=== PATIENT | male | born 1980 | race Two or more races ===

== ENCOUNTER 2024-08-29 19:50 | Inpatient (IN) | payer MEDICAID, SELFPAY ==
--- NOTE | 2024-08-29 20:07 | XR_ITS ---
Examination: CT abdomen with intravenous contrast CT pelvis with intravenous contrast 2-D coronal reconstructions 2-D sagittal reconstructions Date and time of exam:August 29, 2024 1052 hrs. Comparison August 08, 2024 Indications: Abdominal pain beginning 8 hours ago, history pancreatitis. CTDI: vol (mGy) 6.70 DLP: (mGycm) 363 Technique: Multiple axial sections of the abdomen and pelvis have been obtained. 64 slice high-resolution scanner used. 3 mm axial sections have been obtained, post intravenous injection 60 cc [id number] 2-D sagittal, coronal reconstructions obtained. Low dose protocols were performed. One or more of the following dose reduction techniques were used; automated exposure control, adjustment of the mA and/or KV according to patient size, use of iterative reconstruction technique. Findings: Left pleural fluid with pneumonia left base No focal liver lesion Spleen is not enlarged Prominent edema surrounding the pancreas. There is probable embolization material in the left abdomen medial to the spleen There remains splenic laceration with subcapsular hematoma adjacent to the spleen, fragmentation of the spleen noted on studies dating to June 27, 2024 No hydronephrosis Aorta normal size No bowel obstruction No pericecal inflammatory change or diverticulitis Cystitis pattern Impression: Mild to moderate left pleural fluid with pneumonia left base Acute pancreatitis Lacerated fragmented spleen is again noted with subcapsular hematoma, noted on abdomen films dating to June 27, 2024
--- NOTE | 2024-08-29 20:14 | PD.EDABDPN ---
ED Abdominal Pain RME/HPI General Chief Complaint: Abdominal Pain Stated complaint: ABDOMINAL PAIN Time seen by provider: 08/29/24 20:02 Arrival date/time: 08/29/24 19:50 RME / HPI RME / HPI narrative: 44-year-old male patient with significant history of pancreatitis, gastritis, was brought in by EMS for evaluation regarding worsening abdominal pain. Patient told me that since yesterday she been having epigastric pain, getting worse today, currently moaning and crying severity 10 out of 10 described as sharp pain. Patient told me that his pancreatitis is acting up again. Also complained of vomiting and nausea. No fever no other complaints noted. Patient told me that started yesterday after drinking lemon juice. Patient took Antler 3 hours prior to ER visit with no relief. Related Data Home Medications ?Medication ?Instructions ?Recorded ?Confirmed carvedilol 12.5 mg tablet 12.5 mg PO DAILY 08/10/23 08/08/24 lisinopril 20 mg tablet 10 mg PO BID 08/10/23 08/08/24 quetiapine 25 mg tablet 25 mg PO PRN PRN Sleep 04/14/24 08/08/24 allopurinol 100 mg tablet 100 mg PO QDAY 06/27/24 08/08/24 colchicine 0.6 mg tablet 0.6 mg PO QDAY 06/27/24 08/08/24 corticotropin 80 unit/mL injection 80 unit subcut DAILY PRN Pain 06/27/24 08/08/24 gel (Cortrophin Gel) ergocalciferol (vitamin D2) 1,250 1,250 mcg PO QWEEK 06/27/24 08/08/24 mcg (50,000 unit) capsule fluconazole 150 mg tablet 150 mg PO QDAY 06/27/24 08/08/24 hydrocodone 10 mg-acetaminophen 1 tab PO BID PRN Pain 06/27/24 08/08/24 325 mg tablet prednisone 20 mg tablet 20 mg PO QDAY 06/27/24 08/08/24 omeprazole 20 mg capsule,delayed 20 mg PO QDAY 08/08/24 08/08/24 release Previous Rx's ?Medication ?Instructions ?Recorded acetaminophen 325 mg tablet 650 mg (2 x 325 mg) PO Q6H PRN 08/11/24 Pain Scale 1-3 (Mild #15 tabs Allergies Allergy/AdvReac Type Severity Reaction Status Date / Time No Known Allergies Allergy Verified 08/29/24 20:32 Review of Systems Review of Systems Narrative Review of Systems: Review of system reviewed and within normal limits except mentioned in HPI ED Exam Narrative Physical exam: VITAL SIGNS: Reviewed. GENERAL APPEARANCE: Alert and interactive, follows commands, no acute distress, HEAD AND FACE: Non-traumatic. ENT: PERRL, pink conjunctivitis, eyelid no trauma, Mucous membrane moist. NECK: Supple, nontender, no nuchal rigidity. CHEST: No tenderness, no crepitus, no paradoxical movement, no retractions. LUNGS: Clear, well ventilated, symmetric, no rales, no wheezing, no ronchi, no stridor, good breath sounds bilaterally. HEART: Regular rate, regular rhythm, no murmur, no gallops. ABDOMEN: Soft, positive bowel sounds, nondistended, no guarding, epigastric tenderness, no rebound, no masses, RECTAL: Deferred. GENITAL: Deferred. NEUROLOGICAL: Gross motor function intact sensory function intact, Appropriate for age. MUSCULOSKELETAL: low back nontender, full range of motion. EXTREMITIES: Nontender, full range of motion. SKIN: Color pink, dry, no rash, no lacerations, no abrasions, no contusions. LYMPHATICS: Deferred. Course Quality Measures none Orders Category Date Time Status Bedside COVID-19 Antigen Test NOW Care 08/30/24 02:[address] Screening NOW Care 08/29/24 20:12 Completed EKG (ED ONLY) *Do not use* NOW Care 08/29/24 20:07 Completed EKG (ED ONLY) *Do not use* NOW Care 08/29/24 20:[address] abdomen pelvis w con Stat Exams 08/29/24 20:07 Completed EKG (ED Only) Stat Exams 08/29/24 20:07 Ordered EKG (ED Only) Stat Exams 08/29/24 20:13 Ordered CBC Stat Lab 08/29/24 20:54 Completed Comprehensive Metabolic Panel Stat Lab 08/29/24 20:54 Completed Lipase Stat Lab 08/29/24 20:54 Completed Partial Thromboplastin Time Stat Lab 08/29/24 20:54 [address] Review Blood Smear Stat Lab 08/29/24 20:54 Completed Prothrombin Time with INR Stat Lab 08/29/24 20:54 Completed Famotidine Inj [Pepcid Inj] Med 08/29/24 20:12 Discontinued 20 mg IVP X1 ONE HYDROmorphone INJ [Dilaudid Inj] Med 08/30/24 02:24 Discontinued 1 mg IVP X1 ONE Morphine Inj Med 08/29/24 21:26 Discontinued 5 mg IVP X1 ONE Morphine Inj Med 08/29/24 23:59 Discontinued 5 mg IVP X1 ONE Morphine Inj (ASD use only) Med 08/29/24 23:36 Discontinued 10 mg IVP X1 ONE Morphine Inj (ASD use only) Med 08/29/24 23:39 Discontinued 5 mg IVP X1 ONE Morphine Inj [Morphine Sulf Inj] Med 08/29/24 23:17 Discontinued 5 mg IV X1 ONE Morphine Inj [Morphine Sulf Inj] Med 08/29/24 20:13 Discontinued 5 mg IVP X1 ONE Morphine Inj [Morphine Sulf Inj] Med 08/29/24 23:16 Discontinued 5 mg IVP X1 ONE Morphine Inj [Morphine Sulf Inj] Med 08/29/24 23:52 Discontinued 5 mg IVP X1 ONE Ondansetron Inj [Zofran Inj] Med 08/29/24 20:12 Discontinued 4 mg IV X1 ONE Sodium Chloride 0.9% 1000 ml [Ns] 1,000 ml Med 08/29/24 20:12 Discontinued IV 999 mls/hr Vital Signs Vital signs: Vital Signs Temperature 98.1 F 08/29/24 20:21 Respiratory Rate 65 H 08/29/24 20:21 Blood Pressure 233/127 H 08/29/24 20:21 Pulse Oximetry (%) 99 08/29/24 20:21 Oxygen Delivery Method Room Air 08/29/24 20:21 Abdominal Pain MDM MDM Narrative MDM Narrative:: Care transferred to Dr. Hirsch at 11:30 PM for final disposition. Patient data External records reviewed:: None Clinical information provided by:: patient Social determinants that could affect healthcare access:: none Patient has the following chronic illnesses:: Hypertension How is presenting disease/condition affected by chronic disease/condition?: uneffected by Evaluation data The following diagnostics were reviewed and interpreted by me:: lab results Lab and/or radiology exams considered but not ordered:: None Interpretation Summary: Pending results Medications / Prescriptions Medications or Prescriptions considered but not ordered:: None Medication administrations:: Medication Administration History Acetaminophen (Acetaminophen 325 Mg Tablet) 650 mg PO Q6H PRN PRN Reason: Pain or Fever >100.3 Stop: 09/29/24 03:50 Hydrocodone Bitart/Acetaminophen (Hydrocodone/Apap 10/325 Tab) 2 tab PO Q4H PRN PRN Reason: PAIN SCALE 4-6 (Moderate Stop: 09/04/24 03:50 Folic Acid (Folic Acid 1 Mg Tablet) 1 mg PO BID [facility] Stop: 09/04/24 20:59 Last Admin: 08/30/24 20:56 Dose: 1 mg Documented By: Hydralazine HCl (Hydralazine Inj 20 Mg/Ml Vial) 10 mg IV Q6H PRN PRN Reason: High blood pressure Stop: 09/29/24 05:18 Hydromorphone HCl (Hydromorphone Inj 2 Mg/Ml Vial) 1 mg IVP Q2H PRN PRN Reason: PAIN SCALE 7-10 (Severe Stop: 09/04/24 03:50 Last Admin: 08/30/24 20:58 Dose: 1 mg Documented By: Admin: 08/30/24 18:45 Dose: 1 mg Documented By: Admin: 08/30/24 12:28 Dose: 1 mg Documented By: JUSTICE Sodium Chloride (Ns) 1,000 mls @ 150 mls/hr IV .Q6H40M [facility] Stop: 08/31/24 11:18 Last Admin: 08/30/24 18:45 Dose: 150 mls/hr Documented By: Infusion: 08/30/24 18:45 Dose: Infused Documented By: Admin: 08/30/24 12:18 Dose: 150 mls/hr Documented By: JUSTICE Lorazepam (Lorazepam 2 Mg/Ml Vial) 0.5 mg IVP Q4H PRN PRN Reason: CIWA SCORE(2-6) Stop: 09/04/24 14:46 Lorazepam (Lorazepam 2 Mg/Ml Vial) 1 mg IVP Q4H PRN PRN Reason: CIWA SCORE (7-11) Stop: 09/04/24 14:46 Lorazepam (Lorazepam 2 Mg/Ml Vial) 2 mg IVP Q4H PRN PRN Reason: CIWA SCORE (12-16) Stop: 09/04/24 14:46 Melatonin (Melatonin 3 Mg Tablet) 3 mg PO HS [facility] Stop: 09/29/24 20:59 Last Admin: 08/30/24 20:56 Dose: 3 mg Documented By: Ondansetron HCl (Ondansetron Inj 2 Mg/Ml Inj 2 Ml) 4 mg IV Q6HR PRN; Protocol PRN Reason: NAUSEA OR VOMITING Stop: 09/29/24 05:04 Last Admin: 08/30/24 13:18 Dose: 4 mg Documented By: JSUTICE Comments: [email or web address] to give early, pt vomiting Admin: 08/30/24 08:52 Dose: 4 mg Documented By: JUSTICE Pantoprazole Sodium (Pantoprazole Inj 40 Mg Vial) 40 mg IVP QDAY [facility] Stop: 09/29/24 08:59 Last Admin: 08/30/24 08:52 Dose: 40 mg Documented By: JUSTICE Thiamine HCl (Thiamine 100 Mg Tablet) 100 mg PO BID [facility] Stop: 09/04/24 20:59 Last Admin: 08/30/24 20:56 Dose: 100 mg Documented By: Discontinued Medications Acetaminophen (Acetaminophen 325 Mg Tablet) 650 mg PO Q6H PRN PRN Reason: Pain or Fever >100.3 Stop: 09/29/24 03:50 Famotidine (Famotidine Inj 10 Mg/Ml Vial 2 Ml) 20 mg IVP X1 ONE Stop: 08/29/24 20:13 Last Admin: 08/29/24 21:36 Dose: 20 mg Documented By: EVAN Hydromorphone HCl (Hydromorphone Inj 2 Mg/Ml Vial) 1 mg IVP X1 ONE Stop: 08/30/24 02:25 Last Admin: 08/30/24 03:12 Dose: 1 mg Documented By: EVAN Hydromorphone HCl (Hydromorphone Inj 2 Mg/Ml Vial) 1 mg IVP Q2H PRN PRN Reason: PAIN Stop: 09/04/24 03:50 Last Admin: 08/30/24 08:53 Dose: 1 mg Documented By: Admin: 08/30/24 05:52 Dose: 1 mg Documented By: EVAN Sodium Chloride (Ns) 1,000 mls @ 999 mls/hr IV .Q1H1M ONE Stop: 08/29/24 21:12 Last Infusion: 08/29/24 23:45 Dose: Infused Documented By: Admin: 08/29/24 22:00 Dose: 999 mls/hr Documented By: EVAN Sodium Chloride (Ns) 500 mls @ 999 mls/hr IV .Q31M ONE Stop: 08/30/24 04:21 Last Infusion: 08/30/24 04:59 Dose: Infused Documented By: Admin: 08/30/24 04:00 Dose: 999 mls/hr Documented By: EVAN Lactated Ringer's (Lactated Ringers) 1,000 mls @ 200 mls/hr IV .Q5H [facility] Stop: 08/30/24 08:59 Last Admin: 08/30/24 05:54 Dose: 200 mls/hr Documented By: EVAN Magnesium Sulfate (Magnesium Sulfate Ivpb) 4 gm in 50 mls @ 12.5 mls/hr IV X1 ONE Stop: 08/30/24 15:24 Last Admin: 08/30/24 12:18 Dose: 12.5 mls/hr Documented By: JUSTICE Ketorolac Tromethamine (Ketorolac Inj 30 Mg/Ml Vial) 15 mg IVP X1 ONE Stop: 08/30/24 17:26 Last Admin: 08/30/24 17:44 Dose: 15 mg Documented By: JUSTICE Lorazepam (Lorazepam 2 Mg/Ml Vial) 1 mg IVP X1 ONE Stop: 08/30/24 13:24 Last Admin: 08/30/24 13:30 Dose: 1 mg Documented By: JUSTICE Morphine Sulfate (Morphine Sulf Inj 4 Mg/Ml Vial) 5 mg IVP X1 ONE Stop: 08/29/24 20:14 Last Admin: 08/29/24 22:21 Dose: Not Given Documented By: ROLF Non-Admin Reason: Cancelled by Provider Morphine Sulfate (Morphine Sulf Inj 10 Mg/Ml Vial) 5 mg IVP X1 ONE Stop: 08/29/24 21:27 Last Admin: 08/29/24 21:36 Dose: 5 mg Documented By: EVAN Morphine Sulfate (Morphine Sulf Inj 4 Mg/Ml Vial) 5 mg IVP X1 ONE Stop: 08/29/24 23:17 Last Admin: 08/29/24 23:39 Dose: Not Given Documented By: ROLF Non-Admin Reason: Discontinued Morphine Sulfate (Morphine Sulf Inj 4 Mg/Ml Vial) 5 mg IV X1 ONE Stop: 08/29/24 23:18 Last Admin: 08/29/24 23:21 Dose: Not Given Documented By: ROLF Non-Admin Reason: Discontinued Morphine Sulfate (Morphine Sulf Inj 10 Mg/Ml Vial (Asd Use Only)) 10 mg IVP X1 ONE Stop: 08/29/24 23:37 Last Admin: 08/29/24 23:39 Dose: Not Given Documented By: ROLF Non-Admin Reason: Discontinued Morphine Sulfate (Morphine Sulf Inj 10 Mg/Ml Vial (Asd Use Only)) 5 mg IVP X1 ONE Stop: 08/29/24 23:40 Last Admin: 08/30/24 00:29 Dose: Not Given Documented By: ROLF Non-Admin Reason: Discontinued Morphine Sulfate (Morphine Sulf Inj 4 Mg/Ml Vial) 5 mg IVP X1 ONE Stop: 08/29/24 23:53 Last Admin: 08/30/24 00:29 Dose: Not Given Documented By: ROLF Non-Admin Reason: Discontinued Morphine Sulfate (Morphine Sulf Inj 10 Mg/Ml Vial) 5 mg IVP X1 ONE Stop: 08/30/24 00:00 Last Admin: 08/30/24 00:08 Dose: 5 mg Documented By: EVAN Ondansetron HCl (Ondansetron Inj 2 Mg/Ml Inj 2 Ml) 4 mg IV X1 ONE; Protocol Stop: 08/29/24 20:13 Last Admin: 08/29/24 21:36 Dose: 4 mg Documented By: EVAN Mcpherson Zofran Consultations Consultation(s) initiated? (list below): No Diagnosis Differential diagnosis abdominal pain: abdominal pain, gastroenteritis and pancreatitis Most likely diagnosis given after review of the tests above:: Acute pancreatitis Admission Indicated Admission indicated?: indicated Admission Request Was there a request for admission?: Yes Admission Attestation Admission request attestation: Discussed case with [ ] from Hospitalist service regarding admission. Discussed patients ED course, exam findings, labs, and radiology results. The Hospitalist [agrees,] to accept the patient for admission. Disposition Plan Disposition Plan: Admit Discharge Plan Plan Patient Disposition: Admit Acute Care w/in Hospital Patient condition on transfer: Stable Problem List Clinical Impression: Acute pancreatitis, Intractable nausea
[2024-08-29 20:21] VITALS: BP 200/140; BP 233/127; RESP 65; TEMP 36.7; O2SAT 99; BMI 24.3
[2024-08-29 20:29] VITALS: PULSE 85; RESP 20; O2SAT 98; BMI 24.3
[2024-08-29 21:27] LABS: Basophils % (Auto) 0 % (0-2.5); Eosinophils % (Auto) 0 % (0-10); Hematocrit 28.6 % (41.0-53.0); Immature Granulocytes % (Auto) 1 % (0-0); Immature Granulocytes Auto 0.08 Thou/mm3 (0.00-0.00); Lymphocytes # (Auto) 1.4 Thou/mm3 (1.0-4.8); Lymphocytes % (Auto) 8 % (10-50); Mean Corpuscular HGB Conc 30.8 g/dl (31.0-37.0); Mean Corpuscular Hemoglobin 23.7 pg (25.0-35.0); Mean Corpuscular Volume 77 fL (80-100); Monocytes # (Auto) 0.7 Thou/mm3 (0.0-0.8); Monocytes % (Auto) 4 % (0-12); Neutrophils # (Auto) 14.8 Thou/mm3 (1.8-7.7); Neutrophils % (Auto) 87 % (37-80); Nucleated Red Blood Cell % 0 /100 WBC (0); Platelet Count 873 Thou/mm3 (140-440); RDW Standard Deviation 52.5 fL (35.1-43.9); Red Blood Count 3.72 Miln/mm3 (4.50-5.90); White Blood Count 17.1 Thou/mm3 (3.8-10.6)
[2024-08-29 21:29] LABS: Hemoglobin 8.8 g/dL (13.5-16.0)
[2024-08-29] MEDS: FAMOTIDINE INJ 10 MG/ML VIAL 2 ML 20 MG IVP (21:36)
[2024-08-29] MEDS: MORPHINE SULF INJ 10 MG/ML VIAL 5 MG IVP (21:36)
[2024-08-29] MEDS: ONDANSETRON INJ 2 MG/ML INJ 2 ML 4 MG IV (21:36)
[2024-08-29 21:37] LABS: INR 1.1 (0.9-1.3); Partial Thromboplastin Time 30.2 Seconds (22.0-36.0); Prothrombin Time 11.9 Seconds (9.0-12.2)
[2024-08-29 21:38] VITALS: BP 214/135; PULSE 67; RESP 20; O2SAT 100
[2024-08-29 21:44] LABS: Alanine Aminotransferase 16 U/L (10-49); Albumin, Serum 4.1 gm/dL (3.5-5.0); Albumin/Globulin Ratio 1.2 (1.2-2.2); Alkaline Phosphatase 187 U/L (46-116); Anion Gap 9 (7-16); Aspartate Amino Transferase 16 U/L (0-34); BUN/Creatinine Ratio 11 Ratio (12-20); Bilirubin,Total 0.8 mg/dL (0.3-1.2); Blood Urea Nitrogen 13 mg/dL (9-23); Calcium 9.5 mg/dL (8.3-10.6); Calcium (Corrected) 9.5 mg/dL (8.5-10.1); Carbon Dioxide 21.5 mMol/L (20.0-31.0); Chloride 99 mMol/L (98-107); Creatinine (Component) 1.2 mg/dL (0.6-1.3); Estimated Creatinine Clearance 73.4 mL/min (>60); Globulin 3.4 gm/dL (2.3-3.5); Glucose 172 mg/dL (74-106); Lipase 78 U/L (12-53); Osmolality,Calculated 263 (275-295); Sodium 129 mMol/L (136-145); Total Protein 7.5 gm/dL (5.7-8.2); eGFR > 60 See Note
[2024-08-29] MEDS: SODIUM CHLORIDE 0.9% 1000 ML 1,000 ML 999 ML IV (22:00)
--- NOTE | 2024-08-29 22:45 | PC.NURSE ---
Pt states pain is returning. Pt taken to CT.
[2024-08-30] VITALS (9 sets, daily range): BP systolic 130–209; BP diastolic 88–120; PULSE 62–102; RESP 16–20; TEMP 36.1–36.7; O2SAT 93–100; BMI 21.7
[2024-08-30] MEDS: MORPHINE SULF INJ 10 MG/ML VIAL 5 MG IVP (00:08)
--- NOTE | 2024-08-30 02:14 | EDNOTE_ITS ---
Emergency Room Addendum Addendum Narrative: 2300: Care assumed from Chela Lewis. Past medical, surgical, social and family history reviewed. Vitals and home medications reviewed. Results and treatment plan discussed. I will assume the care of the patient at this time and will follow the patient. Please refer to the emergency department record for history and examination from initial visit. PCP is located at [facility]. 0221: Patient states his pain was initially 9 out of 10, and currently rates it a 7 out of 10. Patient has already received 2 doses of Morphine, 1 dose of Pepcid, and 1 dose of Zofran. Will consult an admission to the hospitalist for pain control. 0225: Discussed case with [the resident physician, attending Dr. Ward] from Hospitalist service regarding admission. Discussed patients ED course, exam findings, labs, and radiology results. The Hospitalist [agrees] to accept the patient for admission. RADIOLOGY RESULTS: [facility] Report Signed Patient: BRAYAN NANCE. Record#: [id number] Birthdate: 1980 Age/Sex: 44 / M Location: [facility] Attending Dr: Ordering Physician: Chela Lewis Date of Service: 08/29/24 Procedure(s): CT abdomen pelvis w con Accession Number(s): [id number] cc: Chela Lewis; Ramon Mendez; Lacho Garcia MD~ Examination: CT abdomen with intravenous contrast CT pelvis with intravenous contrast 2-D coronal reconstructions 2-D sagittal reconstructions Date and time of exam:August 29, 2024 1052 hrs. Comparison August 08, 2024 Indications: Abdominal pain beginning 8 hours ago, history pancreatitis. CTDI: vol (mGy) 6.70 DLP: (mGycm) 363 Technique: Multiple axial sections of the abdomen and pelvis have been obtained. 64 slice high-resolution scanner used. 3 mm axial sections have been obtained, post intravenous injection 60 cc [id number] 2-D sagittal, coronal reconstructions obtained. Low dose protocols were performed. One or more of the following dose reduction techniques were used; automated exposure control, adjustment of the mA and/or KV according to patient size, use of iterative reconstruction technique. Findings: Left pleural fluid with pneumonia left base No focal liver lesion Spleen is not enlarged Prominent edema surrounding the pancreas. There is probable embolization material in the left abdomen medial to the spleen There remains splenic laceration with subcapsular hematoma adjacent to the spleen, fragmentation of the spleen noted on studies dating to June 27, 2024 No hydronephrosis Aorta normal size No bowel obstruction No pericecal inflammatory change or diverticulitis Cystitis pattern Impression: Mild to moderate left pleural fluid with pneumonia left base Acute pancreatitis Lacerated fragmented spleen is again noted with subcapsular hematoma, noted on abdomen films dating to June 27, 2024 Dictated By: Lacho Garcia MD Signed By: <Electronically signed by Lacho Garcia MD in [place]> 08/29/24 1258
[2024-08-30] MEDS: HYDROmorphone INJ 2 MG/ML VIAL 1 MG IVP ×7 (03:12→23:44)
[2024-08-30] MEDS: SODIUM CHLORIDE 0.9% 500 ML 500 ML 999 ML IV (04:00)
--- NOTE | 2024-08-30 04:50 | PD.RESHP ---
Documentation for date of: 08/30/24 [facility] History of Present Illness Chief complaint: severe abdominal pain History of present illness: Patient is a 44-year-old male with past medical history significant for hypertension, gout, chronic pancreatitis with pseudocyst, history of splenic laceration presented to the ED today with abdominal pain around 430 in afternoon. Patient states that he was eating salmon with lemon juice prior to when the pain started suddenly. Patient states the pain started in his umbilical region and then radiated toward the epigastric area. Patient states the pain worsened while arriving in the ED, radiating to the back. Patient denies any nausea or vomiting, diarrhea, constipation, . Patient states pain was initially 10 out of 10, currently 5 out of 10. Patient denies drinking alcohol, smoking tobacco or using any illicit drug use. Of note, patient states that he normally takes indomethacin, prednisone, allopurinol for his gout flares, and did state that he had a mild gout flare in his left shoulder blade, and took indomethacin and prednisone today. Patient also was recently discharged on 08/11/2024 for acute anemia from blood loss, gastritis, acute on chronic peritonitis, and splenic subscapular bleed. Patient states his abdominal pain didn't fully resolved, but manageable. ED course: Patient presented with blood pressure of 233/127, respiration rate of 65, otherwise afebrile on room air. Patient's labs significant for leukocytosis with left shift, microcytic anemia, hyponatremia, elevated alk phos and slightly elevated lipase. UA analysis, U tox pending. Patient received 1 L bolus, 30 mg of morphine [address] abdomen pelvis showed mild to moderate left pleural fluid pneumonia left base, acute pancreatitis, lacerated fragmented spleen with subscapular hematoma. ROS: Negative except as mentioned above PMH: Hypertension, gout, gastritis, splenic laceration, chronic pancreatitis PSH: Splenic laceration surgery SH: Patient denies using any recent illicit drug use or drinking alcohol. Last alcoholic drink was a beer prior to last admission. Home Meds: Lisinopril, omeprazole, patient states he has prednisone, allopurinol, and colchicine for gout as needed Patient was admitted to [facility] [place] for further management of acute on chronic pancreatitis. Review of Systems Review of Systems Systems Reviewed: All systems reviewed, normal except as documented Exam Vital Signs Temp Pulse Resp BP Pulse Ox O2 Del Method 98.1 F 82 18 157/110 H 98 Room Air 08/30/24 04:00 08/30/24 04:00 08/30/24 04:00 08/30/24 04:00 08/30/24 04:00 08/30/24 04:00 Narrative Exam General Appearance: Pt in moderate acute distress laying in bed. HEENT: NC/AT, no scleral icterus, no conjunctival pallor, MMM Lungs: CTAB, no wheezes or crackles appreciated CVS: RRR, S1/S2 heard, no murmurs or rubs appreciated ABD: Soft, diffusely tender with guarding, non-distended, BS + in all 4 quadrants EXT: no deformity/edema/lesions/cyanosis/clubbing, radial pulses 2+ BL, DP pulses 2 + BL SKIN: Skin exam normal without any rashes. Neuro: A&O x 3. No gross neurological deficits. Motor and sensory grossly intact in B/L UL and LL. Psych: Appropriate mood and affect Results: Labs 08/30/24 04:44 08/30/24 04:44 Labs: Short CBC 08/29/24 Range/Units 20:54 WBC 17.1 H (3.8-10.6) Thou/mm3 Hgb 8.8 L (13.5-16.0) g/dL Hct 28.6 L (41.0-53.0) % Plt Count 873 H D (140-440) Thou/mm3 BMP 08/29/24 20:54 Sodium 129 L Potassium 4.0 Chloride 99 Carbon Dioxide 21.5 BUN 13 Creatinine 1.2 Glucose 172 H Calcium 9.5 Liver Function 08/29/24 Range/Units 20:54 Total Bilirubin 0.8 (0.3-1.2) mg/dL AST 16 (0-34) U/L ALT 16 (10-49) U/L Alkaline Phosphatase 187 H (46-116) U/L Albumin 4.1 (3.5-5.0) gm/dL Quality Measures Quality Measures VTE prophylaxis Medications Home Medications and Allergies Home Medications ?Medication ?Instructions ?Recorded ?Confirmed ?Type carvedilol 12.5 mg tablet 12.5 mg PO DAILY 08/10/23 08/08/24 History lisinopril 20 mg tablet 10 mg PO BID 08/10/23 08/08/24 History quetiapine 25 mg tablet 25 mg PO PRN PRN Sleep 04/14/24 08/08/24 History allopurinol 100 mg tablet 100 mg PO QDAY 06/27/24 08/08/24 History colchicine 0.6 mg tablet 0.6 mg PO QDAY 06/27/24 08/08/24 History corticotropin 80 unit/mL injection 80 unit subcut DAILY PRN Pain 06/27/24 08/08/24 History gel (Cortrophin Gel) ergocalciferol (vitamin D2) 1,250 1,250 mcg PO QWEEK 06/27/24 08/08/24 History mcg (50,000 unit) capsule fluconazole 150 mg tablet 150 mg PO QDAY 06/27/24 08/08/24 History hydrocodone 10 mg-acetaminophen 1 tab PO BID PRN Pain 06/27/24 08/08/24 History 325 mg tablet prednisone 20 mg tablet 20 mg PO QDAY 06/27/24 08/08/24 History omeprazole 20 mg capsule,delayed 20 mg PO QDAY 08/08/24 08/08/24 History release Allergies Allergy/AdvReac Type Severity Reaction Status Date / Time No Known Allergies Allergy Verified 08/29/24 20:32 Visit Medications Acetaminophen (Acetaminophen 325 Mg Tablet) 650 mg PO Q6H PRN PRN Reason: Pain or Fever >100.3 Stop: 09/29/24 03:50 Hydrocodone Bitart/Acetaminophen (Hydrocodone/Apap 10/325 Tab) 2 tab PO Q4H PRN PRN Reason: PAIN SCALE 4-6 (Moderate Stop: 09/04/24 03:50 Hydromorphone HCl (Hydromorphone Inj 2 Mg/Ml Vial) 1 mg IVP Q2H PRN PRN Reason: PAIN Stop: 09/04/24 03:50 Lactated Ringer's (Lactated Ringers) 1,000 mls @ 200 mls/hr IV .Q5H SEVEN Stop: 08/30/24 08:59 Discontinued Medications Famotidine (Famotidine Inj 10 Mg/Ml Vial 2 Ml) 20 mg IVP X1 ONE Stop: 08/29/24 20:13 Last Admin: 08/29/24 21:36 Dose: 20 mg Hydromorphone HCl (Hydromorphone Inj 2 Mg/Ml Vial) 1 mg IVP X1 ONE Stop: 08/30/24 02:25 Last Admin: 08/30/24 03:12 Dose: 1 mg Sodium Chloride (Ns) 1,000 mls @ 999 mls/hr IV .Q1H1M ONE Stop: 08/29/24 21:12 Last Infusion: 08/29/24 23:45 Dose: Infused Sodium Chloride (Ns) 500 mls @ 999 mls/hr IV .Q31M ONE Stop: 08/30/24 04:21 Morphine Sulfate (Morphine Sulf Inj 4 Mg/Ml Vial) 5 mg IVP X1 ONE Stop: 08/29/24 20:14 Last Admin: 08/29/24 22:21 Dose: Not Given Morphine Sulfate (Morphine Sulf Inj 10 Mg/Ml Vial) 5 mg IVP X1 ONE Stop: 08/29/24 21:27 Last Admin: 08/29/24 21:36 Dose: 5 mg Morphine Sulfate (Morphine Sulf Inj 4 Mg/Ml Vial) 5 mg IVP X1 ONE Stop: 08/29/24 23:17 Last Admin: 08/29/24 23:39 Dose: Not Given Morphine Sulfate (Morphine Sulf Inj 4 Mg/Ml Vial) 5 mg IV X1 ONE Stop: 08/29/24 23:18 Last Admin: 08/29/24 23:21 Dose: Not Given Morphine Sulfate (Morphine Sulf Inj 10 Mg/Ml Vial (Asd Use Only)) 10 mg IVP X1 ONE Stop: 08/29/24 23:37 Last Admin: 08/29/24 23:39 Dose: Not Given Morphine Sulfate (Morphine Sulf Inj 10 Mg/Ml Vial (Asd Use Only)) 5 mg IVP X1 ONE Stop: 08/29/24 23:40 Last Admin: 08/30/24 00:29 Dose: Not Given Morphine Sulfate (Morphine Sulf Inj 4 Mg/Ml Vial) 5 mg IVP X1 ONE Stop: 08/29/24 23:53 Last Admin: 08/30/24 00:29 Dose: Not Given Morphine Sulfate (Morphine Sulf Inj 10 Mg/Ml Vial) 5 mg IVP X1 ONE Stop: 08/30/24 00:00 Last Admin: 08/30/24 00:08 Dose: 5 mg Ondansetron HCl (Ondansetron Inj 2 Mg/Ml Inj 2 Ml) 4 mg IV X1 ONE; Protocol Stop: 08/29/24 20:13 Last Admin: 08/29/24 21:36 Dose: 4 mg Assessment & Plan Plan Patient is a 44-year-old male with past medical history significant for hypertension, gout, chronic pancreatitis with pseudocyst, history of splenic laceration presented to the ED today with sudden onset of severe abdominal pain admitted for further management of acute on chronic pancreatitis. #Acute on Chronic Pancreatitis Patient presented with sudden onset of severe abdominal pain. Patient states he has had pancreatitis with acute flares for about 3 years, with last flare 2 weeks ago. Presented with normal LFTs, elevated alk phos, and lipase of 78. Patient had a sudden onset of epigastric pain that initially radiated from the back. Anabell's criteria for pancreatitis prognosis is 2. CT abdomen pelvis showed acute pancreatitis, mild to moderate left pleural fluid with pneumonia left base, and lacerated fragmented spleen is again noted with subcapsular hematoma stable since 06/27/24. Last EtOH drink was 3 weeks ago. -Admit to med/surg -IV LR fluids at 200cc/h after additional LR 500ml bolus -Monitor Strict I's/O's -Pain regimen: Mild to Moderate (1-12/01) Acetaminophen 650mg Q6H PO PRN, Mod to Severe (4-610) Hydrocodone/APAP 10mg Q4H PO PRN , Severe (-07/03) Dilaudid 1 mg Q2H IV PRN -Initially NPO, however patient able to tolerate ice chips, and will start clear liquid diet ordered and can advance as tolerated -Ondansetron IV 4 mg every 6 as needed -Monitor CBC and CMP, Lipid panel -Utox, UA, and EtoH level pending #Microcytic Anemia #Subscapular bleed-Stable #History of splenic laceration #Gastritis Labs today show Hemoglobin 8.8, hematocrit 28.6, MCV 77. Prior EGD findings three weeks ago show esophagitis and diffuse moderate gastritis. Patient takes home Omeprazole. CT abdomen pelvis showed lacerated fragmented spleen is again noted with subcapsular hematoma stable since 06/27/24. -IVF Maintenance -Pain management as needed ordered -Will transfuse if Hgb below 7 -Pending Iron panel and Ferritin -F/u outpt for colonscopy -IV PPI #Hypertensive Urgency-improved #Primary hypertension Resume home Lisinopril 20mg QD #Gout Patient does not regularly take medication, he states he has approximately 3 flares a year Patient states he had a flare today and took Indomethacin and Prednisone #Hx of Substance abuse -Patient denies any recent use of EtoH or ilicit drug use -Pending Utox, UA, and EtOH level Health Maintenance: Disposition: Patient admitted for acute on chronic pancreatitis. Currently on IVF and pain control, and plan to advance as tolerated. DVT Prophylaxis: SCDs GI Prophylaxis: Pantoprozol-40 IV Qday Diet: CLD Code status: Full Patient's care and plan discussed with my attending, Dr. Ward. Althea Petit, PGY-2 Attending Provider Attestation/Addendum Face to face evaluation was performed by me. I have personally seen and examined the patient. I discussed the assessment and plan with the entire medicine team. I reviewed available medical records, imaging studies, laboratory results. I agree with the above subjective data, objective findings, assessment and plan except as corrected by me or noted below Epigaatric pain Acuteon chronci pancreatitis Splenic rupture subcapsular hematoma, stable Hx of polysubstance abuse Leukocytosis, likely reactive Anemia - Aggressive iv hydration, give 1 time and consider repeating small boluses 500 cc q1h prn as well. -Pain control -PRN antiemetics -NPO for now -Radiologist commended left base infiltrate, but could not visualize it well on CT imaging, absence of fever and cough- will hold off on Abxs, likely wbc elevation is reactive. -Hb at least stable if not higher than before, continue to monitor closely, avoid heparin products if possible DV ppx wit hSCDs and ambulaiton
[2024-08-30 05:17] LABS: Basophils % (Auto) 0 % (0-2.5); Eosinophils % (Auto) 0 % (0-10); Hematocrit 28.6 % (41.0-53.0); Immature Granulocytes % (Auto) 1 % (0-0); Immature Granulocytes Auto 0.19 Thou/mm3 (0.00-0.00); Lymphocytes # (Auto) 2.1 Thou/mm3 (1.0-4.8); Lymphocytes % (Auto) 8 % (10-50); Mean Corpuscular HGB Conc 30.8 g/dl (31.0-37.0); Mean Corpuscular Volume 78 fL (80-100); Monocytes # (Auto) 1.5 Thou/mm3 (0.0-0.8); Monocytes % (Auto) 5 % (0-12); Neutrophils % (Auto) 86 % (37-80); Nucleated Red Blood Cell % 0 /100 WBC (0); Platelet Count 653 Thou/mm3 (140-440); RDW Standard Deviation 53.2 fL (35.1-43.9); Red Blood Count 3.66 Miln/mm3 (4.50-5.90); White Blood Count 26.8 Thou/mm3 (3.8-10.6)
[2024-08-30 05:20] LABS: Hemoglobin 8.8 g/dL (13.5-16.0)
[2024-08-30 05:44] LABS: Path Review Blood Smear Sent to Pathologist
[2024-08-30 05:53] LABS: Alanine Aminotransferase 14 U/L (10-49); Albumin/Globulin Ratio 1.4 (1.2-2.2); Alkaline Phosphatase 175 U/L (46-116); Anion Gap 8 (7-16); Aspartate Amino Transferase 15 U/L (0-34); BUN/Creatinine Ratio 11 Ratio (12-20); Bilirubin,Total 0.7 mg/dL (0.3-1.2); Blood Urea Nitrogen 13 mg/dL (9-23); Calcium 8.9 mg/dL (8.3-10.6); Calcium (Corrected) 8.9 mg/dL (8.5-10.1); Carbon Dioxide 23.5 mMol/L (20.0-31.0); Cardiac Risk Estimate 2.3 RATIO (4.0-6.7); Chloride 102 mMol/L (98-107); Cholesterol 164 mg/dL (132-200); Creatinine (Component) 1.2 mg/dL (0.6-1.3); Estimated Creatinine Clearance 73.4 mL/min (>60); Globulin 2.9 gm/dL (2.3-3.5); Glucose 110 mg/dL (74-106); HDL Cholesterol 72 mg/dL (40-60); LDL Cholesterol,Calculated 77 mg/dL (0-130); Magnesium 1.6 mg/dL (1.6-2.6); Osmolality,Calculated 267 (275-295); Potassium 4.2 mMol/L (3.4-5.1); Sodium 133 mMol/L (136-145); Total Protein 6.9 gm/dL (5.7-8.2); Triglycerides 77 mg/dL (30-150); eGFR > 60 See Note
[2024-08-30] MEDS: RINGERS LACTATED 1000 ML 1,000 ML 200 ML IV (05:54)
--- NOTE | 2024-08-30 06:16 | PC.NURSE ---
Report given to Dario ADAMS.
[2024-08-30 06:30] LABS: Ferritin 59 ng/mL (10.5-307.3); Iron 54 mcg/dL (65-175); Percent Iron Saturation 14 % (20-55); Total Iron Binding Capacity 372 mcg/dL (250-425); Unsaturated Iron Binding 318 (225-295)
[2024-08-30] MEDS: ONDANSETRON INJ 2 MG/ML INJ 2 ML 4 MG IV ×2 (08:52→13:18)
[2024-08-30] MEDS: PANTOPRAZOLE INJ 40 MG VIAL IVP (08:52)
[2024-08-30 11:02] LABS: Collection Type, Urine Clean Catch; Squamous Epithelial Cell,Urine 0 /hpf (0-5)
[2024-08-30 11:15] LABS: Bacteria,Urine Rare; Bilirubin,Urine Negative (Negative); Blood,Urine Negative (Negative); Clarity,Urine Clear (Clear/Hazy); Color,Urine Yellow (Lt Yel-Yel); Glucose, Urine Negative (Negative); Ketones,Urine Negative (Negative); Leukocyte Esterase,Urine Negative (Negative); Nitrite,Urine Negative (Negative); Protein,Urine 1+ (Neg - Trace); RBC,Urine 1 /hpf (0-3); Urobilinogen,Urine Negative mg/dL (0.0-1.0); WBC,Urine 1 /hpf (0-5)
[2024-08-30 11:16] LABS: Specific Gravity,Urine 1.025 (1.001-1.035)
[2024-08-30 11:17] LABS: Alcohol, Urine Negative (Negative); Amphetamine/Methamp Scrn,U Positive (Negative); Barbiturate Screen,Urine Negative (Negative); Benzodiazepines Screen,Urine Negative (Negative); Benzoylecgonine Screen, Ur Positive (Negative); Fentanyl Screen,Urine Negative (Negative); Opiate Screen,Urine Positive (Negative); THC Screen,Urine Negative (Negative)
--- NOTE | 2024-08-30 11:25 | XR_ITS ---
Examination: AP chest single view Technique one AP portable upright chest single view Exam date and time: August 30, 2000 2412 0 5:00 PM Comparison August 08, 2024 Indications: Coughing congestion this week. Findings: Mild prominence of ventricle Mild atelectasis left lower lobe No lobar pneumonia or pulmonary edema Moderate osteopenia Impression: Mild atelectasis left lower lobe No pneumonia or pulmonary edema
[2024-08-30] MEDS: Magnesium Sulfate 4 GM Ivpb 4 GM/50 ML BAG IV (12:18)
[2024-08-30] MEDS: SODIUM CHLORIDE 0.9% 1000 ML 1,000 ML 150 ML IV ×2 (12:18→18:45)
[2024-08-30] MEDS: LORazepam 2 MG/ML VIAL 1 MG IVP (13:30)
--- NOTE | 2024-08-30 16:59 | ESPR_ITS ---
<Statement entered by Peter Hernández MD - 08/31/24 12:17> I have discussed and was present for the essential components of the history, physical examination, diagnosis, and treatment plan with the resident. I agree with the patient's care as documented by the resident and amended herein by me. Peter Hernández MD. <Statement entered by Mark Lara MD - 08/30/24 20:31> Patient was seen and examined at the bedside. Patient reported that he has abdominal discomfort and was feeling mildly anxious. U tox was positive for cocaine and amphetamines. Patient's last alcohol drink was 2 weeks ago. His calculated CIWA score today was 7. Patient is admitted for acute on chronic pancreatitis and has been previously admitted for similar presentation. CT findings were suggestive of acute pancreatitis no pseudocyst. Currently we are managing with IV fluid therapy at 150 cc/h due to reactive leukocytosis seen on CBC. Electrolytes are closely monitored. Hematocrit is closely monitored. Patient was placed on CIWA protocol for alcohol withdrawal. Patient is showing signs symptoms of withdrawal from methamphetamines as well. He has been complaining of pain in the abdomen and was given 30 mg morphine in the ED overnight and we have been careful on giving Dilaudid during the morning. RN was instructed to keep an eye on respiratory rate. Will likely escalate the diet as tolerated. Kidney function stable. All labs and orders were reviewed. I saw and examined the patient, and I agree with current management stated by Dr Flavia MD,PGY1. Plan of care was discussed with the attending physician and resident physician. Disclaimer: Despite multiple revisions, due to the dictation software being used, the document bellow may not be free of grammatical errors including phonetic/typographic errors. However, this does not deter from our commitment to providing health care in the patient's best interest in mind. Dr. Neeraj MD, PGY 2 Documentation for date of: 08/30/24 Subjective Subjective Interval history: Patient is a 44-year-old male with a past medical history of hypertension, gout, chronic pancreatitis with pseudocyst history of splenic laceration and polysubstance use disorder who was admitted on 08/30/2024 for acute on chronic pancreatitis. No overnight events reported for patient. Patient examined at bedside. Continues to complain of abdominal pain 8 out of 10 pain. Stated he last used cocaine 2 days ago. Last alcoholic drink 3 weeks ago. Denied chest pain or shortness of breath. Denied hematochezia or melena. Denied hematemesis. Exam Vital Signs Temp Pulse Resp BP Pulse Ox O2 Del Method 96.9 F 80 19 153/103 H 93 L Room Air 08/30/24 12:00 08/30/24 12:00 08/30/24 12:00 08/30/24 12:00 08/30/24 12:00 08/30/24 12:00 Narrative Exam General Appearance: Alert & Oriented X3, well-nourished male who is lying in bed in no acute distress HEENT: Skull symmetrical and atraumatic. Conjunctivae pin and moist. Pupils equal, round, reactive to light and accommodation (PERRL). External ear without lesion or discharge. Straight, nares patient, mucosa pink, no discharge. No thyroid nodule appreciated. No cervical lymphadenopathy. Cardio: Normal Rate and Rhythm with S1 and S2 heart sounds. No murmurs or extra heart sounds auscultated. No bruits on carotid auscultation. No peripheral edema or cyanosis. Lungs: Symmetric with good expansion. Chest and back non-tender. Breath sounds vesicular without crackles, wheezing or rhonchi Abdomen: Diffuse tenderness, Non-distended, Normal Reactive Bowel Sounds Neuro: Alert, cooperative, oriented to person, place, and time. Speech clear. CN grossly intact. Upper motor strength 5/5 and Lower motor strength 5/5. Sensation intact. Objective Labs 08/30/24 04:44 08/30/24 04:44 Labs: Laboratory Results - last 24 hr 08/29/24 08/30/24 08/30/24 20:54 04:44 10:50 WBC 17.1 H 26.8 H D RBC 3.72 L 3.66 L Hgb 8.8 L 8.8 L Hct 28.6 L 28.6 L MCV 77 L 78 L MCH 23.7 L 24.0 L MCHC 30.8 L 30.8 L RDW Std Deviation 52.5 H 53.2 H Plt Count 873 H D 653 H D Neut % (Auto) 87 H 86 H Lymph % (Auto) 8 L 8 L [place] % (Auto) 4 5 Eos % (Auto) 0 0 Baso % (Auto) 0 0 Neut # (Auto) 14.8 H 23.0 H Lymph # (Auto) 1.4 2.1 [place] # (Auto) 0.7 1.5 H Eos # (Auto) 0.0 0.0 Baso # (Auto) 0.0 0.0 Immature Gran # (Auto) 0.08 H 0.19 H Absolute Nucleated RBC 0.00 0.00 Immature Gran % 1 H 1 H Nucleated RBC % 0 0 Smear Path Review Sent to Pathologist PT 11.9 INR 1.1 APTT 30.2 Sodium 129 L 133 L Potassium 4.0 4.2 Chloride 99 102 Carbon Dioxide 21.5 23.5 Anion Gap 9 8 BUN 13 13 Creatinine 1.2 1.2 Estim Creat Clear Calc 73.4 73.4 eGFR > 60 > 60 BUN/Creatinine Ratio 11 L 11 L Glucose 172 H 110 H D Calculated Osmolality 263 L 267 L Calcium 9.5 8.9 Corrected Calcium 9.5 8.9 Magnesium 1.6 Iron 54 L TIBC 372 Iron Saturation 14 L Unsat Iron Binding 318 H Ferritin 59 Total Bilirubin 0.8 0.7 AST 16 15 ALT 16 14 Alkaline Phosphatase 187 H 175 H Total Protein 7.5 6.9 Albumin 4.1 4.0 Globulin 3.4 2.9 Albumin/Globulin Ratio 1.2 1.4 Triglycerides 77 Cholesterol 164 LDL Cholesterol, Calc 77 HDL Cholesterol 72 H Cholesterol/HDL Ratio 2.3 L Lipase 78 H Ur Collection Type Clean Catch Urine Color Yellow Urine Clarity Clear Urine pH 7.0 Ur Specific [place] 1.025 Urine Protein 1+ A Urine Glucose (UA) Negative Urine Ketones Negative Urine Blood Negative Urine Nitrite Negative Urine Bilirubin Negative Urine Urobilinogen (Auto) Negative Ur Leukocyte Esterase Negative Urine RBC 1 Urine WBC 1 Ur Squamous Epith Cells 0 Urine Bacteria Rare Urine Opiates Screen Positive A Urine Fentanyl Screen Negative Ur Barbiturates Screen Negative U Amphetamin/Meth Scrn Positive A U Benzodiazepines Scrn Negative U Cocaine Metab Screen Positive A U Marijuana (THC) Screen Negative Urine Alcohol Negative Quality Measures Quality Measures VTE prophylaxis Assessment & Plan Assessment Current Active Medications: Generic Name Dose Route Start Last Admin Trade Name Freq PRN Reason Stop Dose Admin Acetaminophen 650 mg 08/30/24 11:50 Acetaminophen 325 Mg Tablet PO 09/29/24 03:50 Q6H PRN Pain or Fever >100.3 Hydrocodone Bitart/Acetaminophen 2 tab 08/30/24 03:51 Hydrocodone/Apap 10/325 Tab PO 09/04/24 03:50 Q4H PRN PAIN SCALE 4-6 (Moderate Folic Acid 1 mg 08/30/24 21:00 Folic Acid 1 Mg Tablet PO 09/04/24 20:59 BID SEVEN Hydralazine HCl 10 mg 08/30/24 05:19 Hydralazine Inj 20 Mg/Ml Vial IV 09/29/24 05:18 Q6H PRN High blood pressure Hydromorphone HCl 1 mg 08/30/24 11:50 08/30/24 12:28 Hydromorphone Inj 2 Mg/Ml Vial IVP 09/04/24 03:50 1 mg Q2H PRN Administration PAIN SCALE 7-10 (Severe Sodium Chloride 1,000 mls @ 150 mls/hr 08/30/24 11:19 08/30/24 12:18 Ns IV 08/31/24 11:18 150 mls/hr .Q6H40M SEVEN Administration Lorazepam 0.5 mg 08/30/24 14:47 Lorazepam 2 Mg/Ml Vial IVP 09/04/24 14:46 Q4H PRN CIWA SCORE(2-6) Lorazepam 1 mg 08/30/24 14:47 Lorazepam 2 Mg/Ml Vial IVP 09/04/24 14:46 Q4H PRN CIWA SCORE (7-11) Lorazepam 2 mg 08/30/24 14:47 Lorazepam 2 Mg/Ml Vial IVP 09/04/24 14:46 Q4H PRN CIWA SCORE (12-16) Ondansetron HCl 4 mg 08/30/24 05:05 08/30/24 13:18 Ondansetron Inj 2 Mg/Ml Inj 2 Ml IV 09/29/24 05:04 4 mg Q6HR PRN Administration NAUSEA OR VOMITING Protocol Pantoprazole Sodium 40 mg 08/30/24 09:00 08/30/24 08:52 Pantoprazole Inj 40 Mg Vial IVP 09/29/24 08:59 40 mg QDAY SEVEN Administration Thiamine HCl 100 mg 08/30/24 21:00 Thiamine 100 Mg Tablet PO 09/04/24 20:59 BID SEVEN Plan Patient is a 44-year-old male with past medical history significant for hypertension, gout, chronic pancreatitis with pseudocyst, history of splenic laceration presented to the ED today with sudden onset of severe abdominal pain admitted for further management of acute on chronic pancreatitis. #Acute on Chronic Pancreatitis Patient presented with sudden onset of severe abdominal pain. Patient states he has had pancreatitis with acute flares for about 3 years, with last flare 2 weeks ago. Presented with normal LFTs, elevated alk phos, and lipase of 78. Patient had a sudden onset of epigastric pain that initially radiated from the back. Anabell's criteria for pancreatitis prognosis is 2. CT abdomen pelvis showed acute pancreatitis, mild to moderate left pleural fluid with pneumonia left base, and lacerated fragmented spleen is again noted with subcapsular hematoma stable since 06/27/24. Last EtOH drink was 3 weeks ago. Triglycerides 08/30/2024 77 Plan: -Admit to med/surg -NS 1 L @150 cc -Monitor Strict I's/O's -Pain regimen: Mild to Moderate (1-310) Acetaminophen 650mg Q6H PO PRN, Mod to Severe (4-10) Hydrocodone/APAP 10mg Q4H PO PRN , Severe (-07/03) Dilaudid 1 mg Q2H IV PRN -Clear liquid diet -Ondansetron IV 4 mg every 6 as needed -Monitor CBC and CMP, Lipid panel #Poly-Substance Use Disorder #Alcohol Use Disorder Patient stated he last used meth and cocaine two days ago. Plan -Utox: 08/2024: Positive Opiates, Positive Meth, Positive Cocaine -CIWA #Microcytic Anemia #Subscapular bleed-Stable #History of splenic laceration #Gastritis Labs today show Hemoglobin 8.8, hematocrit 28.6, MCV 77. Prior EGD findings three weeks ago show esophagitis and diffuse moderate gastritis. Patient takes home Omeprazole. CT abdomen pelvis showed lacerated fragmented spleen is again noted with subcapsular hematoma stable since 06/27/24. -IVF Maintenance -Pain management as needed ordered -Will transfuse if Hgb below 7 -Pending Iron panel and Ferritin -F/u outpt for colonscopy -IV PPI #Hypertensive Urgency-improved #Primary hypertension Resume home Lisinopril 20mg QD #Gout Patient does not regularly take medication, he states he has approximately 3 flares a year Patient states he had a flare today and took Indomethacin and Prednisone Health Maintenance: Disp: Pt is currently admitted to floors for further management of acute on acute chronic pancreatitis, awaiting improved oral intake FEN: Full Liquid Diet DVT: on subQ heparin Code: Full code - The patient's plan was discussed with attending Dr. Hernández and senior residents Dr. Neeraj Alejandro MD PGY1 Internal Medicine
[2024-08-30] MEDS: KETOROLAC INJ 30 MG/ML VIAL 15 MG IVP (17:44)
[2024-08-30] MEDS: FOLIC ACID 1 MG TABLET PO (20:56)
[2024-08-30] MEDS: THIAMINE 100 MG TABLET PO (20:56)
[2024-08-30] MEDS: MELATONIN 3 MG TABLET PO (20:56)
[2024-08-31] VITALS: BP 133/90; PULSE 92; RESP 18; TEMP 36.5; O2SAT 97
[2024-08-31] MEDS: LORazepam 2 MG/ML VIAL 1 MG IVP ×2 (00:45→10:16)
[2024-08-31] MEDS: HYDROcodone/APAP 10/325 TAB PO (00:46)
[2024-08-31] MEDS: SODIUM CHLORIDE 0.9% 1000 ML 1,000 ML 150 ML IV ×2 (02:08→08:56)
[2024-08-31 04:00] VITALS: BP 135/89; PULSE 101; RESP 17; TEMP 36.3; O2SAT 99
[2024-08-31 05:47] LABS: Basophils # (Auto) 0.1 Thou/mm3 (0.0-0.2); Basophils % (Auto) 0 % (0-2.5); Eosinophils % (Auto) 0 % (0-10); Immature Granulocytes % (Auto) 1 % (0-0); Immature Granulocytes Auto 0.19 Thou/mm3 (0.00-0.00); Lymphocytes # (Auto) 1.3 Thou/mm3 (1.0-4.8); Lymphocytes % (Auto) 6 % (10-50); Mean Corpuscular HGB Conc 30.4 g/dl (31.0-37.0); Mean Corpuscular Hemoglobin 24.4 pg (25.0-35.0); Mean Corpuscular Volume 80 fL (80-100); Monocytes # (Auto) 0.5 Thou/mm3 (0.0-0.8); Monocytes % (Auto) 2 % (0-12); Neutrophils # (Auto) 21.2 Thou/mm3 (1.8-7.7); Neutrophils % (Auto) 91 % (37-80); Nucleated Red Blood Cell % 0 /100 WBC (0); Platelet Count 467 Thou/mm3 (140-440); RDW Standard Deviation 54.2 fL (35.1-43.9); Red Blood Count 3.12 Miln/mm3 (4.50-5.90); White Blood Count 23.3 Thou/mm3 (3.8-10.6)
[2024-08-31 05:55] LABS: Hemoglobin 7.6 g/dL (13.5-16.0)
[2024-08-31 06:07] LABS: Alanine Aminotransferase 16 U/L (10-49); Albumin, Serum 3.2 gm/dL (3.5-5.0); Albumin/Globulin Ratio 1.3 (1.2-2.2); Alkaline Phosphatase 211 U/L (46-116); Anion Gap 7 (7-16); Aspartate Amino Transferase 17 U/L (0-34); BUN/Creatinine Ratio 10 Ratio (12-20); Bilirubin,Total 0.8 mg/dL (0.3-1.2); Blood Urea Nitrogen 10 mg/dL (9-23); Calcium 8.5 mg/dL (8.3-10.6); Calcium (Corrected) 9.1 mg/dL (8.5-10.1); Carbon Dioxide 21.1 mMol/L (20.0-31.0); Chloride 106 mMol/L (98-107); Estimated Creatinine Clearance 83.8 mL/min (>60); Globulin 2.4 gm/dL (2.3-3.5); Glucose 92 mg/dL (74-106); Osmolality,Calculated 267 (275-295); Phosphorous 3.9 mg/dL (2.4-5.1); Potassium 4.3 mMol/L (3.4-5.1); Sodium 134 mMol/L (136-145); Total Protein 5.6 gm/dL (5.7-8.2); eGFR > 60 See Note
[2024-08-31 07:50] VITALS: BP 117/74; PULSE 97; RESP 18; TEMP 36.5; O2SAT 95
--- NOTE | 2024-08-31 10:13 | ESPR_ITS ---
<Statement entered by Peter Hernández MD - 08/31/24 13:06> I have discussed and was present for the essential components of the history, physical examination, diagnosis, and treatment plan with the resident. I agree with the patient's care as documented by the resident and amended herein by me. Peter Hernández MD. Documentation for date of: 08/31/24 Subjective Subjective Interval history: Overnight, patient continued to complain of pain. Was given Dilaudid, [place] for pain, Ativan for restlessness. Patient evaluated this morning. Continues to complain of epigastric and left upper quadrant pain. Describes as sharp. Patient states that he was able to eat his dinner last night and his nausea and vomiting improved. Has not had bowel movement yet Exam Vital Signs Temp Pulse Resp BP Pulse Ox O2 Del Method 97.7 F 97 18 117/74 95 Room Air 08/31/24 07:50 08/31/24 07:50 08/31/24 07:50 08/31/24 07:50 08/31/24 07:50 08/31/24 07:50 Narrative Exam Constitutional: Acute distress, appears restless HEENT: NCAT. Vision grossly intact. Respiratory: CTAB bilaterally. Cardiac: RRR. Abdomen: Soft, non-distended, tender epigastric region and left upper quadrant. No guarding or rebound. MSK: No B/L LE edema. Skin: Warm, dry, intact. Tattoos noted Neuro: Motor and sensation grossly intact. Psychiatric: Appropriate mood and affect. Objective Labs 08/31/24 05:02 08/31/24 05:02 Labs: Laboratory Results - last 24 hr 08/30/24 08/31/24 10:50 05:02 WBC 23.3 H RBC 3.12 L Hgb 7.6 L Hct 25.0 L MCV 80 MCH 24.4 L MCHC 30.4 L RDW Std Deviation 54.2 H Plt Count 467 H D Neut % (Auto) 91 H Lymph % (Auto) 6 L [place] % (Auto) 2 Eos % (Auto) 0 Baso % (Auto) 0 Neut # (Auto) 21.2 H Lymph # (Auto) 1.3 [place] # (Auto) 0.5 Eos # (Auto) 0.0 Baso # (Auto) 0.1 Immature Gran # (Auto) 0.19 H Absolute Nucleated RBC 0.00 Immature Gran % 1 H Nucleated RBC % 0 Sodium 134 L Potassium 4.3 Chloride 106 Carbon Dioxide 21.1 Anion Gap 7 BUN 10 Creatinine 1.0 Estim Creat Clear Calc 83.8 eGFR > 60 BUN/Creatinine Ratio 10 L Glucose 92 Calculated Osmolality 267 L Calcium 8.5 Corrected Calcium 9.1 Phosphorus 3.9 Magnesium 2.0 Total Bilirubin 0.8 AST 17 ALT 16 Alkaline Phosphatase 211 H D Total Protein 5.6 L Albumin 3.2 L D Globulin 2.4 Albumin/Globulin Ratio 1.3 Ur Collection Type Clean Catch Urine Color Yellow Urine Clarity Clear Urine pH 7.0 Ur Specific [place] 1.025 Urine Protein 1+ A Urine Glucose (UA) Negative Urine Ketones Negative Urine Blood Negative Urine Nitrite Negative Urine Bilirubin Negative Urine Urobilinogen (Auto) Negative Ur Leukocyte Esterase Negative Urine RBC 1 Urine WBC 1 Ur Squamous Epith Cells 0 Urine Bacteria Rare Urine Opiates Screen Positive A Urine Fentanyl Screen Negative Ur Barbiturates Screen Negative U Amphetamin/Meth Scrn Positive A U Benzodiazepines Scrn Negative U Cocaine Metab Screen Positive A U Marijuana (THC) Screen Negative Urine Alcohol Negative Quality Measures Quality Measures none Assessment & Plan Assessment Current Active Medications: Generic Name Dose Route Start Last Admin Trade Name Freq PRN Reason Stop Dose Admin Acetaminophen 650 mg 08/30/24 11:50 Acetaminophen 325 Mg Tablet PO 09/29/24 03:50 Q6H PRN Pain or Fever >100.3 Hydrocodone Bitart/Acetaminophen 2 tab 08/30/24 03:51 08/31/24 00:46 Hydrocodone/Apap 10/325 Tab PO 09/04/24 03:50 2 tab Q4H PRN Administration PAIN SCALE 4-6 (Moderate Folic Acid 1 mg 08/30/24 21:00 08/30/24 20:56 Folic Acid 1 Mg Tablet PO 09/04/24 20:59 1 mg BID SEVEN Administration Hydralazine HCl 10 mg 08/30/24 05:19 Hydralazine Inj 20 Mg/Ml Vial IV 09/29/24 05:18 Q6H PRN High blood pressure Hydromorphone HCl 1 mg 08/30/24 11:50 08/30/24 23:44 Hydromorphone Inj 2 Mg/Ml Vial IVP 09/04/24 03:50 1 mg Q2H PRN Administration PAIN SCALE 7-10 (Severe Sodium Chloride 1,000 mls @ 150 mls/hr 08/30/24 11:19 08/31/24 08:56 Ns IV 08/31/24 11:18 150 mls/hr .Q6H40M SEVEN Administration Lorazepam 0.5 mg 08/30/24 14:47 Lorazepam 2 Mg/Ml Vial IVP 09/04/24 14:46 Q4H PRN CIWA SCORE(2-6) Lorazepam 1 mg 08/30/24 14:47 08/31/24 00:45 Lorazepam 2 Mg/Ml Vial IVP 09/04/24 14:46 1 mg Q4H PRN Administration CIWA SCORE (7-11) Lorazepam 2 mg 08/30/24 14:47 Lorazepam 2 Mg/Ml Vial IVP 09/04/24 14:46 Q4H PRN CIWA SCORE (12-16) Melatonin 3 mg 08/30/24 21:00 08/30/24 20:56 Melatonin 3 Mg Tablet PO 09/29/24 20:59 3 mg HS SEVEN Administration Ondansetron HCl 4 mg 08/30/24 05:05 08/30/24 13:18 Ondansetron Inj 2 Mg/Ml Inj 2 Ml IV 09/29/24 05:04 4 mg Q6HR PRN Administration NAUSEA OR VOMITING Protocol Pantoprazole Sodium 40 mg 08/30/24 09:00 08/30/24 08:52 Pantoprazole Inj 40 Mg Vial IVP 09/29/24 08:59 40 mg QDAY SEVEN Administration Thiamine HCl 100 mg 08/30/24 21:00 08/30/24 20:56 Thiamine 100 Mg Tablet PO 09/04/24 20:59 100 mg BID SEVEN Administration Plan Patient is a 44-year-old male with past medical history significant for hypertension, gout, chronic pancreatitis with pseudocyst and splenic laceration with subscapular hematoma presented to the ED today with sudden onset of severe abdominal pain admitted for further management of acute on chronic pancreatitis. #Acute on Chronic Pancreatitis Patient presented with sudden onset of severe abdominal pain. Patient states he has had pancreatitis with acute flares for about 3 years, with last flare 2 weeks prior to admission. Presented with normal LFTs, elevated alk phos, and lipase of 78. Patient had a sudden onset of epigastric pain that initially radiated from the back. Anabell's criteria for pancreatitis prognosis is 2. CT abdomen pelvis showed acute pancreatitis, mild to moderate left pleural fluid with pneumonia left base. Trigger unknown, last drink 3 weeks ago and TAGS at 77. No gallstones commented on CT. Plan: - IVF NS 150 cc/hr -Pain regimen: Mild to Moderate (-12/01) Acetaminophen 650mg Q6H PO PRN, Mod to Severe (-03/03) Hydrocodone/APAP 10mg Q4H PO PRN , Severe (-07/03) Dilaudid 1 mg Q2H IV PRN - FLD, advance as tolerated - Ondansetron IV 4 mg every 6h as needed #History of lacerated fragmented spleen with subscapular hematoma, stable CT abdp lacerated fragmented spleen is again noted with subcapsular hematoma stable since 06/27/24. Evaluated on previous visit; no bowel perforation at that time so no surgical intervention #Poly-Substance Use Disorder #Alcohol Use Disorder Patient stated he last used meth and cocaine two days ago. Utox on this admission positive for opiates, meth, cocaine Last drink 3 weeks ago. Plan -Avoid beta-blockers - CIWA - Thiamine 100mg Qday - Folic acid 1mg po bid #History of alcoholic gastritis Prior EGD findings three weeks ago show esophagitis and diffuse moderate gastritis. - Continue protonix #Primary hypertension - Resume home Lisinopril 20mg QD #History of Gout Patient does not regularly take medication, he states he has approximately 3 flares a year Health Maintenance Disposition: Admit for acute on chronic pancreatitis Diet and fluids: FLD, IVF 150CC/HR DVT prophylaxis: heparin GI prophylaxis: protonix Bowel regimen: senna prn CODE STATUS: FULL I have reviewed and discussed the patient's care with my attending, Dr. Betty Anderson MD PGY-3
[2024-08-31] MEDS: FOLIC ACID 1 MG TABLET PO ×2 (10:15→20:19)
[2024-08-31] MEDS: PANTOPRAZOLE INJ 40 MG VIAL IVP (10:16)
[2024-08-31] MEDS: HYDROmorphone INJ 2 MG/ML VIAL 1 MG IVP ×5 (10:16→21:11)
[2024-08-31] MEDS: THIAMINE 100 MG TABLET PO ×2 (10:16→20:19)
[2024-08-31 11:37] VITALS: BP 121/77; PULSE 107; RESP 17; TEMP 36.6; O2SAT 98
[2024-08-31] MEDS: SENNA TABLET 1 TAB PO (13:11)
[2024-08-31 15:19] VITALS: BP 139/90; PULSE 91; RESP 17; TEMP 36.7; O2SAT 93
[2024-08-31] MEDS: LORazepam 2 MG/ML VIAL 0.5 MG IVP (15:52)
[2024-08-31 20:00] VITALS: BP 128/87; PULSE 114; PULSE 91; RESP 18; TEMP 37; O2SAT 95
[2024-08-31] MEDS: MELATONIN 3 MG TABLET PO (20:19)
[2024-09-01] VITALS (13 sets, daily range): BP systolic 116–153; BP diastolic 70–97; PULSE 98–117; RESP 16–18; TEMP 35.8–37.6; O2SAT 95–100; BMI 21.7
[2024-09-01] MEDS: HYDROmorphone INJ 2 MG/ML VIAL 1 MG IVP ×3 (00:31→05:57)
[2024-09-01 06:12] LABS: Basophils # (Auto) 0.1 Thou/mm3 (0.0-0.2); Basophils % (Auto) 0 % (0-2.5); Eosinophils # (Auto) 0.1 Thou/mm3 (0.0-0.5); Eosinophils % (Auto) 0 % (0-10); Hematocrit 22.4 % (41.0-53.0); Immature Granulocytes % (Auto) 1 % (0-0); Immature Granulocytes Auto 0.25 Thou/mm3 (0.00-0.00); Lymphocytes # (Auto) 1.7 Thou/mm3 (1.0-4.8); Lymphocytes % (Auto) 7 % (10-50); Mean Corpuscular HGB Conc 29.9 g/dl (31.0-37.0); Mean Corpuscular Volume 80 fL (80-100); Monocytes # (Auto) 1.6 Thou/mm3 (0.0-0.8); Monocytes % (Auto) 6 % (0-12); Neutrophils # (Auto) 22.9 Thou/mm3 (1.8-7.7); Neutrophils % (Auto) 86 % (37-80); Nucleated Red Blood Cell % 0 /100 WBC (0); Platelet Count 506 Thou/mm3 (140-440); RDW Standard Deviation 56.4 fL (35.1-43.9); Red Blood Count 2.79 Miln/mm3 (4.50-5.90); White Blood Count 26.7 Thou/mm3 (3.8-10.6)
[2024-09-01 06:15] LABS: Hemoglobin 6.7 g/dL (13.5-16.0)
[2024-09-01 06:30] LABS: Alanine Aminotransferase 16 U/L (10-49); Albumin/Globulin Ratio 1.3 (1.2-2.2); Alkaline Phosphatase 216 U/L (46-116); Anion Gap 7 (7-16); Aspartate Amino Transferase 15 U/L (0-34); BUN/Creatinine Ratio 10 Ratio (12-20); Blood Urea Nitrogen 9 mg/dL (9-23); Calcium 8.2 mg/dL (8.3-10.6); Carbon Dioxide 21.3 mMol/L (20.0-31.0); Chloride 103 mMol/L (98-107); Creatinine (Component) 0.9 mg/dL (0.6-1.3); Estimated Creatinine Clearance 93.1 mL/min (>60); Globulin 2.4 gm/dL (2.3-3.5); Glucose 117 mg/dL (74-106); Magnesium 1.8 mg/dL (1.6-2.6); Osmolality,Calculated 262 (275-295); Phosphorous 3.8 mg/dL (2.4-5.1); Sodium 131 mMol/L (136-145); Total Protein 5.4 gm/dL (5.7-8.2); eGFR > 60 See Note
[2024-09-01 07:43] LABS: Hematocrit 22.6 % (41.0-53.0)
--- NOTE | 2024-09-01 08:35 | PC.NURSE ---
RN made MD aware of redraw hbg 7.0. Pt notes blood in last bm. Pt asked to inform RN of next bm for assessment for blood in stool. MD to place orders for prbc.
--- NOTE | 2024-09-01 09:39 | XR_ITS ---
Examination: CT abdomen with intravenous contrast CT pelvis with intravenous contrast 2-D coronal reconstructions 2-D sagittal reconstructions Date and time of exam:September 01, 2024 1203 hours Comparison March 29, 2024 INDICATIONS: History acute pancreatitis, history splenic rupture. CTDI: vol (mGy) 7.29 DLP: (mGycm) 469 Technique: Multiple axial sections of the abdomen and pelvis have been obtained. 64 slice high-resolution scanner used. 3 mm axial sections have been obtained, post intravenous injection 60 cc [id number] 2-D sagittal, coronal reconstructions obtained. Low dose protocols were performed. One or more of the following dose reduction techniques were used; automated exposure control, adjustment of the mA and/or KV according to patient size, use of iterative reconstruction technique. Findings: Small left pleural effusion Interval fluid/blood throughout the abdomen including subcapsular to the liver and surrounding the spleen More prominent fluid collection adjacent to the spleen which may represent subcapsular hemorrhage, currently measuring 7.2 x 6.2 cm There remains prominent edema surrounding the pancreas No hydronephrosis Mildly fluid distended small bowel loops No bowel obstruction Urinary bladder is thickened up to 10 mm IMPRESSION: Interval significant fluid/blood throughout the abdomen including subcapsular to the liver More prominent blood fluid collection adjacent to the spleen, which may represent subcapsular hemorrhage, measuring 7.2 x 6.2 cm Recommend surgical consultation Acute pancreatitis
--- NOTE | 2024-09-01 09:45 | PC.SS ---
Vivian Mg is a 44-year-old male admitted to [place] for Acute Pancreatitis. SS met with patient at bedside to complete initial assessment and to discuss discharge planning. Patient confirmed demographic information. Patient identifies his Yamileth Mg [phone] as his surrogate decision maker. Patient resides at home with his . Pt states he is able to complete all ADL?s independently, and does not utilize any source of DME to assist with ambulation. Pts PCP is Mario. Lainez. [facility] of choice [facility]. DC option discussed and pt wishes to return home. Pts family will provide transportation upon Discharge. DC Plan: Home Contact: Yamileth Mg [phone] PCP: Fatou
[2024-09-01] MEDS: PANTOPRAZOLE INJ 40 MG VIAL IVP (09:54)
[2024-09-01] MEDS: THIAMINE 100 MG TABLET PO (09:54)
[2024-09-01] MEDS: FOLIC ACID 1 MG TABLET PO (09:54)
[2024-09-01] MEDS: HYDROmorphone INJ 2 MG/ML VIAL 1.5 MG IVP ×3 (09:55→18:34)
[2024-09-01] MEDS: Magnesium Sulfate 2 GM Ivpb 2 GM/50 ML BAG IV (10:02)
[2024-09-01 11:09] LABS: Total Iron Binding Capacity 257 mcg/dL (250-425)
[2024-09-01 11:20] LABS: Iron 8 mcg/dL (65-175); Percent Iron Saturation 3 % (20-55); Unsaturated Iron Binding 249 (225-295)
[2024-09-01 11:43] LABS: Lactate (Lactic Acid) 1.1 mMol/L (0.4-2.0)
[2024-09-01 12:34] LABS: Collection Type, Urine Clean Catch; Squamous Epithelial Cell,Urine 0 /hpf (0-5)
[2024-09-01 12:39] LABS: Bilirubin,Urine Negative (Negative); Blood,Urine Negative (Negative); Clarity,Urine Clear (Clear/Hazy); Color,Urine Yellow (Lt Yel-Yel); Glucose, Urine Negative (Negative); Ketones,Urine Negative (Negative); Leukocyte Esterase,Urine Negative (Negative); Nitrite,Urine Negative (Negative); PH,Urine 6.5 (5.0-7.0); Protein,Urine 1+ (Neg - Trace); RBC,Urine < 1 /hpf (0-3); Specific Gravity,Urine 1.014 (1.001-1.035); WBC,Urine < 1 /hpf (0-5)
[2024-09-01] MEDS: HYDROcodone/APAP 10/325 TAB PO (12:50)
[2024-09-01] MEDS: PIPER/TAZO 3.375 GM 3.375 GM/50 ML BAG IV (12:51)
--- NOTE | 2024-09-01 14:25 | PD.EVENT ---
Documentation for date of: 09/01/24 Event Note Event Note: 44M with chronic pancreatitis, history of angioembolization of spleen in 2022 who has had a splenic hematoma on imaging since Jun 2024, admitted 08/30 with abdominal pain. This am pt had Hgb 6.7 from 7.6, CT repeated today now showing a more prominent fluid collection adjacent to the spleen. I was consulted for possible surgical intervention however I do not have the expertise to perform splenectomy. I recommend urgent transfer to a higher level of care
--- NOTE | 2024-09-01 14:33 | PC.CM ---
Addendum entered by Socorro Aquino RN 09/01/24 18:03: 1803 called [facility], spoke to Kathryn and informed crop picker time is 0. Addendum entered by Socorro Aquino RN 09/01/24 18:02: 1800 called and informed bedside nurse and breaker unit assembler about the crop picker time. Addendum entered by Socorro Aquino RN 09/01/24 17:55: [address] [facility] through [employer]. Called [facility], spoke to [facility] and set up the transport. The crop picker time is 0. 1732 spoke to charge nurse, the blood transfusion will be done at 1930. Addendum entered by Socorro Aquino RN 09/01/24 17:38: 1730 charge nurse informed me that there is no nurse available to go with the pt. We discussed another option is to finish the second unit of blood and then transfer the pt. I informed Dr. Anderson and she is OK with that. Addendum entered by Socorro Aquino RN 09/01/24 17:36: 1720 transfer packet is complete with CD inside including all signatures. Transfer packet kept with pt chart, notified bedside nurse and breaker unit assembler of the transfer packet and number to call for report. Addendum entered by Socorro Aquino RN 09/01/24 16:45: 1639 received call from Hernán with [facility] stated call star and local declined due to weather. But he will call me in a few to check with one more. 1630 called [facility], spoke to Hernán to setup the transport. He stated he will call me back after flight and weather check. 1617 I also informed charge nurse to look for a nurse for back up as a second option for the transport due to weather being bad all day. I am going to call [facility]. [address] Lara need to setup the transport as stat. Dr. Lara is OK with me to call [facility]. error in previous note time pt got accepted at 1614. Addendum entered by Socorro Aquino RN 09/01/24 16:43: 1630 received call from Kathryn at [facility] that pt is accepted at [facility] from inpatient to ED transfer. Accepted by Dr. Fitch. Number to call report is [phone]. She stated she wants to speak to Dr. Lara. Conference call connected. Kathryn informed Dr. Lara that Dr. Fitch wants the second until of blood hanging before transporting the pt. Addendum entered by Socorro Aquino RN 09/01/24 15:47: 1547 I also emailed Melissa regarding auth request. Addendum entered by Socorro Aquino RN 09/01/24 15:39: 1541 called Melissa with [facility] @ [phone] to get insurance auth, left VM. Addendum entered by Socorro Aquino RN 09/01/24 15:34: 1532 received call from Kim at [facility], she stated she would want me to get auth for the transfer in order to proceed. I informed her that I can't get auth without accepting info. She stated she still want me to get auth for the transfer. Addendum entered by Socorro Aquino RN 09/01/24 15:06: 1506 images pushed over to [facility] through [employer]. Addendum entered by Socorro Aquino RN 09/01/24 15:06: 1450 Called [facility], spoke to Kathryn and initiated the transfer. She wants to speak to Dr. Lara. Conference call connected. Addendum entered by Socorro Aquino RN 09/01/24 14:49: 1449 called [facility] to initiate the transfer, left VM. Original Note: [address] [facility] and [facility]. [address] Goodrich that pt needs to be transferred stat for spleen subcapsular hemorrhage needs general surgery.
--- NOTE | 2024-09-01 14:51 | ESDS_ITS ---
<Statement entered by Mark Lara MD - 09/01/24 16:13> Patient was seen and examined at the bedside. He reported that he had bilateral flank pains after eating food. He also reported that he has been having blood in the stool and feels anxious as well. He was asking for pain medication due to his abdominal pain. Repeat CT scan abdomen was performed which showed spleni c rupture and hematoma in the abdomen. General surgery in the hospital was consulted but they could not for their surgical expertise for splenic rupture therefore transfer nurse was contacted to start process of transfer to higher level of care for management of spleen rupture. Patient also had a drop in hemoglobin last night therefore we are transfusing 2 units PRBC and will follow on H&H. Keeping the patient n.p.o. and repeat UA was negative. We started IV Zosyn for concern for abdominal infection. We are giving pain medication as needed. Labs revealed elevated white count. We updated the family and patient on the bedside regarding the transfer for possible spleen rupture. All labs and orders were reviewed. Of note, Patient had a hx of spleen subcapsular hematoma since may 2023 a year ago. He had a fall in June 2024 after however his spleen hematoma remained stable however during that admission today it was seen ruptured on the CT scan today. I saw and examined the patient, and I agree with current management stated by Dr Flavia MD,PGY1. Plan of care was discussed with the attending physician and resident physician. Disclaimer: Despite multiple revisions, due to the dictation software being used, the document bellow may not be free of grammatical errors including phonetic/typographic errors. However, this does not deter from our commitment to providing health care in the patient's best interest in mind. Dr. Marco MD, PGY 2 Planned Discharge Date 09/01/24 DS: Providers Provider Date of admission: 08/30/24 03:51 Primary care physician: Ramon Mendez Admitting Provider: Mauro Ward MD Attending Provider on Admission: Jemal Moeller DO Consults: 09/01/24 12:07 Consult to Gastroenterology Urgent Comment: lower GI bleed, hgb dropped overnight Consulting Provider: Maryanne Orellana 09/01/24 14:17 Consult to General Surgery Stat Comment: splenic rupture Consulting Provider: Jania Prabhakar Attending Provider on DC: Gale Alejandro MD Discharging Provider: Gale Alejandro MD DS: Diagnosis Problem List Completed Was Problem List Reviewed/Reconciled?: Yes Hospital Course Hospital Course Hospital course: Overall: Patient is a 44-year-old male with past medical history significant for hypertension, gout, chronic pancreatitis, history of splenic laceration stable on admission who was admitted on 08/30/2024 for acute on chronic pancreatitis. On 09/01/2024 patient's hemoglobin dropped to 6.7, new CT showing fluid/blood throughout the abdomen including subcapsular to the liver. More prominent blood fluid collection adjacent to the spleen, which may represent subcapsular hemorrhage. ER Course: Vitals: T 98.1, BP 233/127, RR 65 CBC (08/29/2024): WBC 17.1, Hgb 8.8, Hct 28.6, MCV 78 UA: negative CT Abdomne/Pelvis (08/30/2024): Mild to moderate left pleural fluid with pneumonia left base, Acute pancreatitis, lacerate fragmented spleen noted with subcapsular hematoma CT Abdomen/Pelvis (05/26/2023): Mild free blood subcapsular to the liver Cxr (09/01/2024): Mild Atelectasis left lowe lobe Patient recieved 1 Liter bolus, 30 mg of morphine, 1 mg of Dilaudid. NPO Hospital Course: Patient was admitted on (08/30/2024) for acute on chronic pancreatitis who was managed by making patient n.p.o. and pain management with Tylenol for mild, [place] 10 for moderate, Dilaudid 1.5 mg IVP for moderate. On floors, urinary toxicology ordered showing: Opiates positive (took [place] inpatient), Meth/Amph Positive, Cocaine Positive. Patient admitted to taking meth and cocaine approximately (08/28/2024). On 09/01/2024 patient's hemoglobin decreased from 7.6-6.7 with hematocrit level of 22.4, MCV 80. 2 units of RBCs transfused on 09/01/2024. CT abdomen on (09/01/2024) showing: Interval significant fluid/blood throughout the abdomen including subcapsular to the liver. More prominent blood fluid collection adjacent to the spleen, which may represent subcapsular hemorrhage, measuring 7.2 x 6.2 cm. Patient was previously seen in ER (05/26/2023) with a chief compalin of abdominal pain and was found to have splenic laceration measuring 5.1 cm w/ perisplenic hematoma measuring 12.5X5.2X13.4 cm. No evidenice of active bleeding. Patinet was transfered out of the ER to [facility] with trauma surgery Dr. Paredes. Patient was later admitted on (06/28/2024) after experincing a fall and admitted Sepsis secondary to CAP, during that admission a stable Subcapsular hematoma was still noted on CT (spleen grade 2). Disposition: Transfer on 09/01/2024 to [facility]. #Acute on Chronic Pancreatitis #History of Lacerated Fragment spleen w/ subscapular hematoma stable-->unstable #Poly-substance Use Disorder #Alcohol Use Disorder #History of Alcoholic gastritis #Primary Hypertension #History of Gout Medication Inpatient: Acetaminophen 650 mg PO Q6H PRN (Mild Pain or Fever) Hydrocodone 10 Q4H PRN Hydormorphone 1.5 mg IV Q4HR Zosyn 3.375 mg Q8 HR (09/01/2024--) Hydralzine 10 mg IV Q6H PRN - The patient's plan was discussed with attending Dr. Moeller and senior residents Marco Alejandro MD PGY1 Internal Medicine Time Spent with Patient Time attestation: Total time spent providing and/or coordinating discharge services: greater than 35 mintues Exam Vital Signs Temp Pulse Resp BP Pulse Ox O2 Del Method 97.4 F 105 H 17 136/81 H 99 Room Air 09/01/24 13:17 09/01/24 13:17 09/01/24 13:17 09/01/24 13:17 09/01/24 12:53 09/01/24 11:52 Narrative Exam General Appearance: Alert & Oriented X3, well-nourished male who is lying in bed in acute abdominal distress. HEENT: Skull symmetrical and atraumatic. Conjunctivae pin and moist. Pupils equal, round, reactive to light and accommodation (PERRL). External ear without lesion or discharge. Straight, nares patient, mucosa pink, no discharge. No thyroid nodule appreciated. Cardio: Normal Rate and Rhythm with S1 and S2 heart sounds. No murmurs or extra heart sounds auscultated. No bruits on carotid auscultation. No peripheral edema or cyanosis. Lungs: Symmetric with good expansion. Chest and back non-tender. Breath sounds vesicular without crackles, wheezing or rhonchi Abdomen: Diffuse tenderness, but increased at Right and Left Lower Quadrant, Non-distended, Normal Reactive Bowel Sounds Neuro: Alert, cooperative, oriented to person, place, and time. Speech clear. CN grossly intact. Upper motor strength 5/5 and Lower motor strength 5/5. Sensation intact. Discharge Plan Plan Patient Disposition: Xfer Other Service Needed for Transfer: General Surgery Patient condition on transfer: Stable Care Plan Goals: You were admitted to the hospital because you had another episode of pancreatitis. While you were admitted, the CT scan showed there was bleeding in your spleen that got bigger. You are recieving blood transfusions because your hemoglobin (blood level) dropped. You are being transferred to another hospital with surgical services to evaluate to stop the bleeding and if the blood needs to be removed. Prescriptions/Referrals Prescriptions/Med Rec: No Action fluconazole 150 mg tablet 150 mg PO QDAY Rx Instructions: once a week on sunday prednisone 20 mg tablet 20 mg PO QDAY Rx Instructions: pt takes only when he needs it allopurinol 100 mg tablet 100 mg PO QDAY hydrocodone-acetaminophen 10-325 mg tablet 1 tab PO BID PRN (Reason: Pain) ergocalciferol (vitamin D2) 1,250 mcg (50,000 unit) capsule 1,250 mcg PO QWEEK Rx Instructions: took on colchicine 0.6 mg tablet 0.6 mg PO QDAY Cortrophin Gel 80 unit/mL gel 80 unit SUBCUT DAILY PRN (Reason: Pain) Patient Comments: INJECT 1ML (80 UNITS) UNDER THE SKIN ONCE DAILY NEEDED INSTRUCTED FOR FLARE UP carvedilol 12.5 mg Tablet 12.5 mg PO DAILY Rx Instructions: must administer with a meal/food lisinopril 20 mg tablet 10 mg PO BID Patient Comments: TAKE 2 TABLETS BY MOUTH EVERY DAY Rx Instructions: Patient states he only takes as needed when BP really bad. quetiapine 25 mg tablet 25 mg PO PRN PRN (Reason: Sleep) omeprazole 20 mg Capsule,Delayed Release(Dr/Ec) 20 mg PO QDAY acetaminophen 325 mg Tablet 650 mg PO Q6H PRN (Reason: Pain Scale 1-3 (Mild) Qty: 15 0RF Referrals: Fatou,Ramon [Primary Care Provider] - Patient/Caregiver Discharge Instructions Print Language: Mozambican Stand Alone Forms: Shona Award Info., Patient Portal Info Letter Discharge Order Discharge Orders: Discharge (Routine); Ordered 09/01/24 Ordered By: Shelly Anderson Quality Discharge Quality Measures VTE prophylaxis (compression device) Attestestation MD Attestation I have discussed and was present for the essential components of the discharge history, physical examination, diagnosis, and discharge treatment plan with the resident. I agree with the patient's discharge care as documented by the resident and amended herein by me. Antonio Moeller DO. Patient emergently transferred to [facility] for further surgical evaluation and management of intra-abdominal bleed, possibly subcapsular from the spleen. See resident note above for additional details Although this document has been carefully reviewed, there may still be some phonetic and other typographical errors. These errors are purely grammatical due to imperfections in the software program and should not be construed in any way to compromise the substance of the patient's medical care during this visit.
--- NOTE | 2024-09-01 14:51 | ESPR_ITS ---
<Statement entered by Mark Lara MD - 09/01/24 18:23> Patient was seen and examined at the bedside. He reported that he had bilateral flank pains after eating food. He also reported that he has been having blood in the stool and feels anxious as well. He was asking for pain medication due to his abdominal pain. Repeat CT scan abdomen was performed which showed splenic rupture and hematoma in the abdomen. General surgery in the hospital was consulted but they could not for their surgical expertise for splenic rupture therefore transfer nurse was contacted to start process of transfer to higher level of care for management of spleen rupture. Patient also had a drop in hemoglobin last night therefore we are transfusing 2 units PRBC and will follow on H&H. Keeping the patient n.p.o. and repeat UA was negative. We started IV Zosyn for concern for abdominal infection. We are giving pain medication as needed. Labs revealed elevated white count. We updated the family and patient on the bedside regarding the transfer for possible spleen rupture. All labs and orders were reviewed. Of note, Patient had a hx of spleen subcapsular hematoma since may 2023 a year ago. He had a fall in June 2024 after however his spleen hematoma remained stable however during that admission today it was seen ruptured on the CT scan today. Patient is getting transferred to [facility] under care of their surgery department. I saw and examined the patient, and I agree with current management stated by Dr Flavia MD,PGY1. Plan of care was discussed with the attending physician and resident physician. Disclaimer: Despite multiple revisions, due to the dictation software being used, the document bellow may not be free of grammatical errors including phonetic/typographic errors. However, this does not deter from our commitment to providing health care in the patient's best interest in mind. Dr. Marco MD, PGY 2 Documentation for date of: 09/01/24 Subjective Subjective Interval history: Patient is a 44-year-old male with past medical history significant for hypertension, gout, chronic pancreatitis, history of splenic laceration stable on admission who was admitted on 08/30/2024 for acute on chronic pancreatitis. Critical lab value reported during morning sign off patient's hemoglobin of 6.7, hematocrit 22.4, MCV 80 which is a significant drop from 08/31/2024 with initial hemoglobin of 7.6. Patient now reports right and left lower quadrant pain as well as suprapubic pain which was different from yesterday (08/31/2024) when he was only reporting left upper quadrant pain. Patient states pain is 10 out of 10. Patient stated overnight he reported seeing hematochezia in his stool, 1 episode only. Patient stated dysuria with urination denied hematuria, which is also new compared to yesterday. On telemetry box tachycardia noted. Patient denied chest pain or dyspnea. 2 units of PRB placed, with repeat Hgb&Hct, and type and screen. New CT abdomen placed. Exam Vital Signs Temp Pulse Resp BP Pulse Ox O2 Del Method 97.4 F 105 H 17 136/81 H 99 Room Air 09/01/24 13:17 09/01/24 13:17 09/01/24 13:17 09/01/24 13:17 09/01/24 12:53 09/01/24 11:52 Narrative Exam General Appearance: Alert & Oriented X3, well-nourished male who is lying in bed in acute abdominal distress. HEENT: Skull symmetrical and atraumatic. Conjunctivae pin and moist. Pupils equal, round, reactive to light and accommodation (PERRL). External ear without lesion or discharge. Straight, nares patient, mucosa pink, no discharge. No thyroid nodule appreciated. Cardio: Normal Rate and Rhythm with S1 and S2 heart sounds. No murmurs or extra heart sounds auscultated. No bruits on carotid auscultation. No peripheral edema or cyanosis. Lungs: Symmetric with good expansion. Chest and back non-tender. Breath sounds vesicular without crackles, wheezing or rhonchi Abdomen: Diffuse tenderness, but increased at Right and Left Lower Quadrant, Non-distended, Normal Reactive Bowel Sounds Neuro: Alert, cooperative, oriented to person, place, and time. Speech clear. CN grossly intact. Upper motor strength 5/5 and Lower motor strength 5/5. Sensation intact. Objective Labs 09/01/24 07:15 09/01/24 05:38 Labs: Laboratory Results - last 24 hr 09/01/24 09/01/24 09/01/24 05:38 07:15 11:17 WBC 26.7 H RBC 2.79 L Hgb 6.7 L* 7.0 L Hct 22.4 L 22.6 L MCV 80 MCH 24.0 L MCHC 29.9 L RDW Std Deviation 56.4 H Plt Count 506 H D Neut % (Auto) 86 H Lymph % (Auto) 7 L [place] % (Auto) 6 Eos % (Auto) 0 Baso % (Auto) 0 Neut # (Auto) 22.9 H Lymph # (Auto) 1.7 [place] # (Auto) 1.6 H Eos # (Auto) 0.1 Baso # (Auto) 0.1 Immature Gran # (Auto) 0.25 H Absolute Nucleated RBC 0.00 Immature Gran % 1 H Nucleated RBC % 0 Sodium 131 L Potassium 4.0 Chloride 103 Carbon Dioxide 21.3 Anion Gap 7 BUN 9 Creatinine 0.9 Estim Creat Clear Calc 93.1 eGFR > 60 BUN/Creatinine Ratio 10 L Glucose 117 H Calculated Osmolality 262 L Lactic Acid 1.1 Calcium 8.2 L Corrected Calcium 9.0 Phosphorus 3.8 Magnesium 1.8 Iron 8 L TIBC 257 Iron Saturation 3 L Unsat Iron Binding 249 Total Bilirubin 1.0 AST 15 ALT 16 Alkaline Phosphatase 216 H Total Protein 5.4 L Albumin 3.0 L Globulin 2.4 Albumin/Globulin Ratio 1.3 Ur Collection Type Urine Color Urine Clarity Urine pH Ur Specific [place] Urine Protein Urine Glucose (UA) Urine Ketones Urine Blood Urine Nitrite Urine Bilirubin Urine Urobilinogen (Auto) Ur Leukocyte Esterase Urine RBC Urine WBC Ur Squamous Epith Cells Urine Bacteria Blood Type O Positive Antibody Screen NEGATIVE Crossmatch See Detail Blood Bank Wristband ID Yes 09/01/24 11:45 WBC RBC Hgb Hct MCV MCH MCHC RDW Std Deviation Plt Count Neut % (Auto) Lymph % (Auto) [place] % (Auto) Eos % (Auto) Baso % (Auto) Neut # (Auto) Lymph # (Auto) [place] # (Auto) Eos # (Auto) Baso # (Auto) Immature Gran # (Auto) Absolute Nucleated RBC Immature Gran % Nucleated RBC % Sodium Potassium Chloride Carbon Dioxide Anion Gap BUN Creatinine Estim Creat Clear Calc eGFR BUN/Creatinine Ratio Glucose Calculated Osmolality Lactic Acid Calcium Corrected Calcium Phosphorus Magnesium Iron TIBC Iron Saturation Unsat Iron Binding Total Bilirubin AST ALT Alkaline Phosphatase Total Protein Albumin Globulin Albumin/Globulin Ratio Ur Collection Type Clean Catch Urine Color Yellow Urine Clarity Clear Urine pH 6.5 Ur Specific [place] 1.014 Urine Protein 1+ A Urine Glucose (UA) Negative Urine Ketones Negative Urine Blood Negative Urine Nitrite Negative Urine Bilirubin Negative Urine Urobilinogen (Auto) 6.0 Ur Leukocyte Esterase Negative Urine RBC < 1 Urine WBC < 1 Ur Squamous Epith Cells 0 Urine Bacteria None Blood Type Antibody Screen Crossmatch Blood Bank Wristband ID Quality Measures Quality Measures none Assessment & Plan Assessment Current Active Medications: Generic Name Dose Route Start Last Admin Trade Name Freq PRN Reason Stop Dose Admin Acetaminophen 650 mg 08/30/24 11:50 Acetaminophen 325 Mg Tablet PO 09/29/24 03:50 Q6H PRN Pain or Fever >100.3 Hydrocodone Bitart/Acetaminophen 2 tab 08/30/24 03:51 09/01/24 12:50 Hydrocodone/Apap 10/325 Tab PO 09/04/24 03:50 2 tab Q4H PRN Administration PAIN SCALE 4-6 (Moderate Folic Acid 1 mg 08/30/24 21:00 09/01/24 09:54 Folic Acid 1 Mg Tablet PO 09/04/24 20:59 1 mg BID SEVEN Administration Hydralazine HCl 10 mg 08/30/24 05:19 Hydralazine Inj 20 Mg/Ml Vial IV 09/29/24 05:18 Q6H PRN High blood pressure Hydromorphone HCl 1.5 mg 09/01/24 12:02 Hydromorphone Inj 2 Mg/Ml Vial IVP 09/06/24 09:40 Q4HR PRN PAIN SCALE 7-10 (Severe Piperacillin/Tazobactam/Dextrose 3.375 gm in 50 mls @ 12.5 mls/hr 09/01/24 22:00 Zosyn IV 09/08/24 21:59 Q8HR SEVEN Lorazepam 0.5 mg 08/30/24 14:47 08/31/24 15:52 Lorazepam 2 Mg/Ml Vial IVP 09/04/24 14:46 0.5 mg Q4H PRN Administration CIWA SCORE(2-6) Lorazepam 1 mg 08/30/24 14:47 08/31/24 10:16 Lorazepam 2 Mg/Ml Vial IVP 09/04/24 14:46 1 mg Q4H PRN Administration CIWA SCORE (7-11) Lorazepam 2 mg 08/30/24 14:47 Lorazepam 2 Mg/Ml Vial IVP 09/04/24 14:46 Q4H PRN CIWA SCORE (12-16) Melatonin 3 mg 08/30/24 21:00 08/31/24 20:19 Melatonin 3 Mg Tablet PO 09/29/24 20:59 3 mg HS SEVEN Administration Ondansetron HCl 4 mg 08/30/24 05:05 08/30/24 13:18 Ondansetron Inj 2 Mg/Ml Inj 2 Ml IV 09/29/24 05:04 4 mg Q6HR PRN Administration NAUSEA OR VOMITING Protocol Pantoprazole Sodium 40 mg 08/30/24 09:00 09/01/24 09:54 Pantoprazole Inj 40 Mg Vial IVP 09/29/24 08:59 40 mg QDAY SEVEN Administration Sennosides 1 tab 08/31/24 10:22 08/31/24 13:11 Senna Tablet PO 09/30/24 10:21 1 tab QDAY PRN Administration CONSTIPATION Protocol Thiamine HCl 100 mg 08/30/24 21:00 09/01/24 09:54 Thiamine 100 Mg Tablet PO 09/04/24 20:59 100 mg BID SEVEN Administration Plan Patient is a 44-year-old male with past medical history significant for hypertension, gout, chronic pancreatitis, history of splenic laceration stable on admission who was admitted on 08/30/2024 for acute on chronic pancreatitis. #Microcytic Anemia #Subscapular bleed-Stable #History of splenic laceration #Gastritis Labs today show Hemoglobin 8.8, hematocrit 28.6, MCV 77. Prior EGD findings three weeks ago show esophagitis and diffuse moderate gastritis. Patient takes home Omeprazole. (09/01/2024): Patient experienced a drop in hemoglobin from 7.6 (08/31/2024) to 6.7 (09/01/2024) with increasing hear rate. Patient stated increasing right and left lower quadrant pain with dysuria. Patient stated one episode of hemtochezia overnight with more streaks than malini blood. Positive for dysuria. Patient denied chest pain or dyspnea. Given dysuria and creasing WBC, new urinalysis ordered, new CT abdomen ordered given past medical history of stable splenic laceration. Now new CT showing spleen hemorrhage measuring 7.2 x 6.2 cm. Possible transfer. Initial splenic laceration noted 05/2023 and a recent admission in 06/2024 where patient reported a fall. Diagnostics: CT Abdomen/Pelvis (09/01/2024): Interval significant fluid/blood throughout the abdomen including sub-capsular to the liver. More prominent blood fluid collection adjacent to the spleen, which may represent sub-capsular hemorrhage, measuring 7.2 x 6.2 cm. Recommend surgical consultation. Acute pancreatitis (09/01/2024) Hgb 6.7, Hct 22.4 MCV 80-->Repeat Hgb 7.0, Hct 22.6 (09/01/2024) WBC 26.7 (increase) Lactic Acid 1.1 Iron Panel (09/01/2024): 8 L, TIBC 257, Iron Saturation 3 L, Unsat Iron Binding 249 Dropped from (08/30/2024) Iron 54 (L) -CT abdomen pelvis showed lacerated fragmented spleen is again noted with subcapsular hematoma stable since 06/27/24. Plan: -NPO NOW -Possible transfer -Two units of RBCs. (type and screen) -Pain management as needed ordered -Will transfuse if Hgb below 7 -Pending Iron panel and Ferritin -F/u outpt for colonscopy -IV PPI #Acute on Chronic Pancreatitis Patient presented with sudden onset of severe abdominal pain. Patient states he has had pancreatitis with acute flares for about 3 years, with last flare 2 weeks ago. Presented with normal LFTs, elevated alk phos, and lipase of 78. Patient had a sudden onset of epigastric pain that initially radiated from the back. Anabell's criteria for pancreatitis prognosis is 2. CT abdomen pelvis showed acute pancreatitis, mild to moderate left pleural fluid with pneumonia left base, and lacerated fragmented spleen is again noted with subcapsular hematoma stable since 06/27/24. Last EtOH drink was 3 weeks ago. Triglycerides 08/30/2024 77 Plan: -Admit to med/surg-->Pending Transfer -NS 1 L @150 cc-D/C -Monitor Strict I's/O's -Pain regimen: Mild to Moderate (1-3/10) Acetaminophen 650mg Q6H PO PRN, Mod to Severe (4-6/10) Hydrocodone/APAP 10mg Q4H PO PRN , Severe (7-10/10) Dilaudid 1 mg Q2H IV PRN -Clear liquid diet -->solid fluids-->NPO 09/01/2024 -Ondansetron IV 4 mg every 6 as needed -Monitor CBC and CMP, Lipid panel #Poly-Substance Use Disorder #Alcohol Use Disorder Patient stated he last used meth and cocaine two days ago. Plan -Utox: 08/2024: Positive Opiates (likley from inpatient [facility]), Positive Meth, Positive Cocaine -CIWA #Hypertensive Urgency-improved #Primary hypertension Plan: -Resume home Lisinopril 20mg QDay -Hydralazine 10 mg IV Q6HR PRN #Gout Patient does not regularly take medication, he states he has approximately 3 flares a year Patient states he had a flare today and took Indomethacin and Prednisone Health Maintenance: Disp: Pt is currently admitted to floors for further management of splenic laceration, awaiting possible transfer FEN: NPO DVT: Compression Device Code: Full Code - The patient's plan was discussed with attending Dr. Moeller and senior residents Marco Alejandro MD PGY1 Internal Medicine Attending Provider Attestation/Addendum I have discussed and was present for the essential components of the history, physical examination, diagnosis, and treatment plan with the resident. I agree with the patient's care as documented by the resident and amended herein by me. Antonio Moeller DO. In short and short, patient is a 44-year-old male with significant past medical history of hypertension, gout, chronic pancreatitis with pseudocyst and stable splenic laceration with subcapsular hematoma who presented to [facility] ED for severe abdominal pain subsequently admitted for pancreatitis. Due to persistent severe abdominal pain, CT abdomen and pelvis with contrast was ordered again today 09/01 which demonstrated a significant interval increase in fluid/blood throughout the abdomen including subcapsular to the liver, subscapular hemorrhage suspected measuring 7.2 x 6.2 cm per radiologist. Surgical consult placed however the on- call surgeon today stated she does not have the expertise required for splenectomy, we did reach out to our other surgeons who declined the consult, recommended to transfer to higher level of care. Transfer nurse notified. INTERVAL HX: At present, vital signs stable, patient afebrile, patient presently on room air, SpO2 99%. Significant labs today including uptrending WBC to 26.7, hemoglobin initially this a.m. 6.7 however repeat demonstrated 7.0, platelets 506, sodium 131, normal lactic acid, T. bili 1.0, AST and ALT WNL, alk phos 216. CT abdomen and pelvis with con today findings as stated above. CURRENT MEDICATIONS: Zosyn 3.375 g every 8 hours Significant problems: #Possible splenic subcapsular hemorrhage measuring 7.2 x 6.2 cm with significant fluid/blood throughout the abdomen #Acute pancreatitis with history of chronic pancreatitis with pseudocyst #History of splenic laceration #Polysubstance abuse to include methamphetamines, cocaine, opiates and alcohol PLAN: Patient accepted to tertiary center, [facility] for possible surgical intervention. Hemoglobin stable at this time however will transfuse for hemoglobin less than 7. CIWA protocol in place, will continue broad-spectrum antibiotics for now, patient made n.p.o. today. Will continue to monitor closely while he is here. Although this document has been carefully reviewed, there may still be some phonetic and other typographical errors. These errors are purely grammatical due to imperfections in the software program and should not be construed in any way to compromise the substance of the patient's medical care during this visit.
[2024-09-01 15:52] LABS: INR 1.3 (0.9-1.3); Partial Thromboplastin Time 42.1 Seconds (22.0-36.0); Prothrombin Time 14.2 Seconds (9.0-12.2)
[2024-09-01 16:27] LABS: Hematocrit 24.5 % (41.0-53.0)
[2024-09-01 16:29] LABS: Hemoglobin 7.7 g/dL (13.5-16.0)
--- NOTE | 2024-09-01 18:26 | PC.NURSE ---
RN called [facility] ED to give report. RN gave report to [phone] on 09/01/24. ETA for transportation is 1930.
--- NOTE | 2024-09-01 19:38 | PC.NURSE ---
Pt A&Ox4, no complaints of pain or discomfort at this time. Pt aware that he is going to be transferred to [facility] for higher level of care. Pt picked up at 1937. Pt left with all belongings accompanied by 3 [facility] personnel.
== END 2024-09-01 19:37 | disposition other institution (70) | DRG 282 ==
LOC: SERX 08-30 02:32 → SERHOLD 08-30 04:09 → S3SX 08-30 06:19
PROVIDERS: Nurse Practitioner Family; Student in an Organized Health Care Education/Training Program; Admitting Provider Internal Medicine; Emergency Provider Emergency Medicine; PCP Physician Assistant; Visit Provider Student in an Organized Health Care Education/Training Program
DX: K85.90 Acute pancreatitis without necrosis or infection, unspecified (principal); I10 Essential (primary) hypertension; M10.9 Gout, unspecified; E87.1 Hypo-osmolality and hyponatremia; K86.1 Other chronic pancreatitis; D50.9 Iron deficiency anemia, unspecified; I16.0 Hypertensive urgency; F10.139 Alcohol abuse with withdrawal, unspecified; F14.129 Cocaine abuse with intoxication, unspecified; F15.129 Other stimulant abuse with intoxication, unspecified; K29.20 Alcoholic gastritis without bleeding
CPT/HCPCS: 36415; 71045; 74177; 80053; 80061; 80307; 80320; 81001; 82728; 83540; 83550; 83605; 83690; 83735; 84100; 85014; 85018; 85025; 85610; 85730; 86850; 86900; 86901; 86923; 87040; 87081; 87086; 87811; 93005; 96374; 96375; 96376; 99285; A4649; J1885; J2060; J2270; J2405; J2470; J2543; J3475; J3490; J7030; J7040; J7120; P9016; Q9967; A9270; G0480

== ENCOUNTER 2024-09-08 02:16 | Emergency (ER) | payer MEDICAID, SELFPAY ==
[2024-09-08] VITALS (10 sets, daily range): BP systolic 145–212; BP diastolic 90–140; PULSE 85–116; RESP 18–19; TEMP 36.9–37.8; O2SAT 99–100; BMI 23.5
--- NOTE | 2024-09-08 02:43 | PD.EDRME ---
Rapid Medical Screening Exam RME Arrival date/time: 09/08/24 02:16 44-year-old male presents emergency department complaining of abdominal pain. Chief Complaint: Abdominal Pain Vital signs: Vital Signs Temperature 100.1 F 09/08/24 02:36 Pulse Rate 116 H 09/08/24 02:36 Respiratory Rate 19 09/08/24 02:36 Blood Pressure 185/106 H 09/08/24 02:36 Pulse Oximetry (%) 99 09/08/24 02:36 Oxygen Delivery Method Room Air 09/08/24 02:36 Vital signs reviewed by provider: Yes
--- NOTE | 2024-09-08 03:03 | XR_ITS ---
Examination: CT abdomen with intravenous contrast CT pelvis with intravenous contrast 2-D coronal reconstructions 2-D sagittal reconstructions Date and time of exam:September 08, 2024 0831 hours INDICATIONS: Abdominal pain today, history ruptured spleen. CTDI: vol (mGy) 5.98 DLP: (mGycm) 352 Technique: Multiple axial sections of the abdomen and pelvis have been obtained. 64 slice high-resolution scanner used. 3 mm axial sections have been obtained, post intravenous injection 60 cc [id number] 2-D sagittal, coronal reconstructions obtained. Low dose protocols were performed. One or more of the following dose reduction techniques were used; automated exposure control, adjustment of the mA and/or KV according to patient size, use of iterative reconstruction technique. Findings: Small left pleural effusion, atelectasis versus pneumonia at the left lung base Mild enlargement cardiac contour Larger blood collection adjacent to the lacerated spleen, axial image 45, currently measuring 9.0 x 6.3 cm compared to 7.1 x 4.5 cm on September 01, 2024 No liver or spleen renal laceration Aorta normal size No bowel obstruction Colonic diverticulosis, no diverticulitis Urinary bladder intact IMPRESSION: Splenic trauma findings again noted with larger blood collection subcapsular to the spleen, currently measuring 9.0 x 6.3 cm compared to 7.1 x 4.5 cm on September 01, 2024 Recommend surgical consultation
[2024-09-08 03:28] LABS: Lactate (Lactic Acid) 1.4 mMol/L (0.4-2.0)
[2024-09-08 03:29] LABS: Basophils % (Auto) 0 % (0-2.5); Eosinophils # (Auto) 0.1 Thou/mm3 (0.0-0.5); Eosinophils % (Auto) 1 % (0-10); Hematocrit 28.1 % (41.0-53.0); Immature Granulocytes % (Auto) 0 % (0-0); Immature Granulocytes Auto 0.04 Thou/mm3 (0.00-0.00); Lymphocytes # (Auto) 1.5 Thou/mm3 (1.0-4.8); Lymphocytes % (Auto) 15 % (10-50); Mean Corpuscular Hemoglobin 25.6 pg (25.0-35.0); Mean Corpuscular Volume 80 fL (80-100); Monocytes # (Auto) 0.7 Thou/mm3 (0.0-0.8); Monocytes % (Auto) 6 % (0-12); Neutrophils # (Auto) 7.8 Thou/mm3 (1.8-7.7); Neutrophils % (Auto) 77 % (37-80); Nucleated Red Blood Cell % 0 /100 WBC (0); Platelet Count 396 Thou/mm3 (140-440); RDW Standard Deviation 56.8 fL (35.1-43.9); Red Blood Count 3.52 Miln/mm3 (4.50-5.90); White Blood Count 10.1 Thou/mm3 (3.8-10.6)
[2024-09-08 03:31] LABS: Collection Type, Urine Clean Catch; Squamous Epithelial Cell,Urine 0 /hpf (0-5)
[2024-09-08 03:40] LABS: Bilirubin,Urine Negative (Negative); Blood,Urine Negative (Negative); Clarity,Urine Clear (Clear/Hazy); Color,Urine Lt-Yellow (Lt Yel-Yel); Culture Indicated,Urine Not Indicated; Glucose, Urine Negative (Negative); Ketones,Urine Negative (Negative); Leukocyte Esterase,Urine Negative (Negative); Nitrite,Urine Negative (Negative); PH,Urine 7.5 (5.0-7.0); Protein,Urine Negative (Neg - Trace); RBC,Urine 1 /hpf (0-3); Specific Gravity,Urine 1.012 (1.001-1.035); Urobilinogen,Urine Negative mg/dL (0.0-1.0); WBC,Urine 1 /hpf (0-5)
[2024-09-08 04:19] LABS: Alanine Aminotransferase < 7 U/L (10-49); Albumin, Serum 3.6 gm/dL (3.5-5.0); Albumin/Globulin Ratio 1.1 (1.2-2.2); Alkaline Phosphatase 278 U/L (46-116); Anion Gap 11 (7-16); Aspartate Amino Transferase 17 U/L (0-34); BUN/Creatinine Ratio 7 Ratio (12-20); Bilirubin,Total 0.4 mg/dL (0.3-1.2); Blood Urea Nitrogen 5 mg/dL (9-23); Calcium 9.3 mg/dL (8.3-10.6); Calcium (Corrected) 9.6 mg/dL (8.5-10.1); Chloride 103 mMol/L (98-107); Creatinine (Component) 0.7 mg/dL (0.6-1.3); Estimated Creatinine Clearance 125.9 mL/min (>60); Globulin 3.4 gm/dL (2.3-3.5); Glucose 107 mg/dL (74-106); Lipase 56 U/L (12-53); Osmolality,Calculated 271 (275-295); Procalcitonin 4.06 ng/ml (0.0-0.49); Sodium 137 mMol/L (136-145); eGFR > 60 See Note
[2024-09-08 04:27] LABS: Amphetamine/Methamp Scrn,U Negative (Negative); Barbiturate Screen,Urine Negative (Negative); Benzodiazepines Screen,Urine Negative (Negative); Benzoylecgonine Screen, Ur Negative (Negative); Fentanyl Screen,Urine Negative (Negative); Opiate Screen,Urine Positive (Negative); THC Screen,Urine Negative (Negative)
[2024-09-08] MEDS: ONDANSETRON INJ 2 MG/ML INJ 2 ML 4 MG IV ×2 (06:51→11:47)
--- NOTE | 2024-09-08 07:03 | PD.EDABDPN ---
ED Abdominal Pain RME/HPI General Chief Complaint: Abdominal Pain Stated complaint: ABDOMINAL PAIN Time seen by provider: 09/08/24 06:43 Arrival date/time: 09/08/24 02:16 RME / HPI RME / HPI narrative: 09/08/24 02:16 44-year-old male presents emergency department complaining of abdominal pain. DR. PARTIDA MAIN ED EVALUATION 44 year old female with history of hypertension, gout, chronic pancreatitis with pseudocyst, splenic laceration, s/p angioembolization of spleen in 2022 presents to the ED for evaluation of abdominal pain today. Reports pain is located all throughout but most severe to the left upper and left lower quadrants, rating as severe that was not improved with Pelzer at home. Accompanied by nausea and nonbloody vomiting x2. Patient states he was evaluated here last week for similar pain then transferred to [facility] where he was discharged yesterday. States while there only had a CT and was observed, no surgical interventions performed. Today denies fevers, chills, chest pain, cough, shortness of breath, diarrhea, constipation, or urinary symptoms. Last bowel movement was yesterday. Per EMR review, patient was admitted here 08/30/2024 for acute on chronic pancreatitis. Labs performed show a Hgb of 6.7 and was transfused 2 units of PRBC. Imaging performed showed a prominent fluid collection adjacent to the spleen and subsequently transferred to [facility] for surgical intervention. Related Data Home Medications ?Medication ?Instructions ?Recorded ?Confirmed carvedilol 12.5 mg tablet 12.5 mg PO DAILY 08/10/23 08/08/24 lisinopril 20 mg tablet 10 mg PO BID 08/10/23 08/08/24 quetiapine 25 mg tablet 25 mg PO PRN PRN Sleep 04/14/24 08/08/24 allopurinol 100 mg tablet 100 mg PO QDAY 06/27/24 08/08/24 colchicine 0.6 mg tablet 0.6 mg PO QDAY 06/27/24 08/08/24 corticotropin 80 unit/mL injection 80 unit subcut DAILY PRN Pain 06/27/24 08/08/24 gel (Cortrophin Gel) ergocalciferol (vitamin D2) 1,250 1,250 mcg PO QWEEK 06/27/24 08/08/24 mcg (50,000 unit) capsule fluconazole 150 mg tablet 150 mg PO QDAY 06/27/24 08/08/24 hydrocodone 10 mg-acetaminophen 1 tab PO BID PRN Pain 06/27/24 08/08/24 325 mg tablet prednisone 20 mg tablet 20 mg PO QDAY 06/27/24 08/08/24 omeprazole 20 mg capsule,delayed 20 mg PO QDAY 08/08/24 08/08/24 release Previous Rx's ?Medication ?Instructions ?Recorded acetaminophen 325 mg tablet 650 mg (2 x 325 mg) PO Q6H PRN 08/11/24 Pain Scale 1-3 (Mild #15 tabs Allergies Allergy/AdvReac Type Severity Reaction Status Date / Time No Known Allergies Allergy Verified 08/29/24 20:32 Review of Systems Review of Systems Narrative Review of Systems: GEN: No fever, no chills, no weight loss EYES: No discharge, no visual changes, no pain HEENT: No ear pain, no congestion, no sore throat PULM: No shortness of breath, no cough, no congestion CV: No chest pain, no dyspnea on exertion, no palpitations GI: + nausea, + vomiting, no diarrhea, +pain, no constipation : No frequency, no urgency and no dysuria MUSC/SKEL No joint pain, no back pain SKIN: No rash PSYCH: No hallucinations, no depression HEME/LYMPH: No easy bleeding or bruising tendencies NEURO: No weakness, no headache Past Medical History Past Medical History NEUROLOGIC: Negative Neurological Disorders CARDIAC: Positive Cardiac Disorders, Hypercholesterolemia and Hypertension GASTROINTESTINAL: Positive Gastrointestinal Disorders, Pancreatitis, Gastrointestinal Bleed, Ulcer, Gastroesophageal Reflux Disease and Obesity MUSCULOSKELETAL: Positive Musculoskeletal Disorders, Gout and Fractures ENT: Positive Cataracts HEMATOLOGIC: Positive Anemia OTHER HISTORY: Positive Hospitalization, Chicken Pox and Clostridium Difficile Family History FAMILY HISTORY: Positive Family Surgery Surgical History SURGICAL: Positive Abdominal Surgery (spleen & gallbladder) Social History SMOKING STATUS: Never smoker SECOND HAND EXPOSURE: No SUBSTANCE USE: heroin OCCUPATION: Works in the [employer] Exam Narrative Physical exam: GENERAL APPEARANCE: Well hydrated, well nourished, appears to be in pain. VITALS: All vitals were reviewed and the pulse ox is 99% on room air which is normal according to my interpretation. HEENT: Normocephalic, atramatic, EOMI, EACs are patent. There is no bulge or retraction. Throat without erythema or exudate. Moist oromucosa. No jaundice NECK: Supple, no JVD or bruits. CARDIOVASCULAR: Heart regular without S3-S4 or murmur. No rubs or gallops. LUNGS/CHEST: Clear to auscultation bilaterally. No rales, rhonchi, or wheezing. Normal inspection. ABDOMEN: Soft, tenderness throughout especially in the left upper quadrant, with normal bowel sounds. No pulsatile masses. No rebound, rigidity, or guarding. No incarcerated hernia. EXTREMITIES: Normal inspection and palpation. No edema, clubbing, or cyanosis. Intact CSM SKIN: Warm and dry without rashes. Normal inspection. MUSCULOSKELETAL: Normal inspection. No gross deformity, full ROM all extremities NEURO: Alert and oriented x3. Cranial nerves II through XII grossly intact. There are no other motor or sensory deficits noted. PSYCHIATRIC: Normal mood and affect. No psychosis Course Quality Measures none Orders Category Date Time Status Bedside COVID-19 Antigen Test NOW Care 09/08/24 03:51 Active Bedside Influenza A&B Antigen Test NOW Care 09/08/24 03:[address] Screening NOW Care 09/08/24 03:03 Active Miscellaneous Nursing Order NOW Care 09/08/24 09:57 Active Transfer to another facility [Transfer/Discharge] Stat Discharge 09/08/24 09:[address] abdomen pelvis w con Stat Exams 09/08/24 03:03 Completed CBC Stat Lab 09/08/24 03:03 Completed CMP [Comprehensive Metabolic Panel] Stat Lab 09/08/24 03:03 Completed Drug Screen,Urine Stat Lab 09/08/24 03:18 Completed Lactate (Lactic Acid) Stat Lab 09/08/24 03:03 Completed Lipase Stat Lab 09/08/24 03:03 Completed Procalcitonin Stat Lab 09/08/24 03:03 Completed Type and Screen Stat Lab 09/08/24 03:03 Completed Urinalysis, C/S if Indicated Stat Lab 09/08/24 03:18 Completed Labetalol IV [Trandate IV] Med 09/08/24 09:33 Discontinued 10 mg IVP X1 ONE Labetalol IV [Trandate IV] Med 09/08/24 12:46 Discontinued 10 mg IVP X1 ONE Morphine Inj Med 09/08/24 07:09 Discontinued 4 mg IVP X1 ONE Morphine Inj Med 09/08/24 09:31 Discontinued 4 mg IVP X1 ONE Morphine Inj Med 09/08/24 11:36 Discontinued 4 mg IVP X1 ONE Morphine Inj Med 09/08/24 12:46 Discontinued 4 mg IVP X1 ONE Ondansetron Inj [Zofran Inj] Med 09/08/24 06:43 Discontinued 4 mg IV X1 ONE Ondansetron Inj [Zofran Inj] Med 09/08/24 11:37 Discontinued 4 mg IV X1 ONE Sodium Chloride 0.9% 1000 ml [Ns] 1,000 ml Med 09/08/24 11:16 Active IV 125 mls/hr hydrALAZINE INJ [Apresoline Inj] Med 09/08/24 11:35 Discontinued 10 mg IV X1 ONE Vital Signs Vital signs: Vital Signs Temperature 100.1 F 09/08/24 02:36 Pulse Rate 116 H 09/08/24 02:36 Respiratory Rate 19 09/08/24 02:36 Blood Pressure 185/106 H 09/08/24 02:36 Pulse Oximetry (%) 99 09/08/24 02:36 Oxygen Delivery Method Room Air 09/08/24 02:36 Abdominal Pain MDM MDM Narrative MDM Narrative:: I, Pauly Landers, am scribing for and in the presence of Dr. Partida. CBC is stable since July. CMP negative. Lipase is 56 which is slightly elevated. UA is negative. Influenza and COVID-19 negative. Procalcitonin is 4 along with the temperature of 100.1. Lactic acid is negative. Tox screen complaint positive for opiate. But he is receiving morphine for the pain. CT abdomen and pelvic was read by Dr. Lacho Garcia radiologist. Please see below. I spoke to discussed with Dr. Venegas, our general surgeon on-call. She said that she does not know how to take care of the splenic rupture. And therefore she want us to transfer the patient to higher surgical level of care. 11:20 AM, I spoke to and discussed with the transfer nurse from [facility]. She said that she will present to the surgeon and they will call me back. Patient has been accepted by Dr. Dos Santos at [facility], ER to ER. At approximately 12:45 PM patient consented to be transfer there. He is in stable condition. Critical care time is approximately 50 minutes excluding any procedure. The high probability of sudden, clinically significant deterioration in the patient?s condition required the highest level of my preparedness to intervene urgently. The services I provided to this patient were to treat and/or prevent clinically significant deterioration. Services included the following: chart data review, reviewing nursing notes and/or old charts, documentation time, organizational effectiveness consultant collaboration regarding findings and treatment options, medication orders and management, direct patient care, vital sign assessments and ordering, interpreting and reviewing diagnostic studies and lab tests. Aggregate critical care time includes only time during which I was engaged in work directly related to the patient?s care, as described above, whether at bedside or elsewhere in the Emergency Department. It did not include time spent performing other reported procedures or the services of residents, students, nurses or physician assistants. Patient data External records reviewed:: [facility] previous records (I reviewed admission from 08/30/2024 through 09/01/2024) Clinical information provided by:: patient Social determinants that could affect healthcare access:: alcohol use (Last drank 1 week ago ) Patient has the following chronic illnesses:: hypertension, gout, chronic pancreatitis with pseudocyst, splenic laceration, s/p angioembolization of spleen in 2022 How is presenting disease/condition affected by chronic disease/condition?: exacerbated by Evaluation data The following diagnostics were reviewed and interpreted by me:: lab results and radiology exam(s) Lab and/or radiology exams considered but not ordered:: None Interpretation Summary: Ordering Physician: Emily Amanda MD Date of Service: 09/08/24 Procedure(s): CT abdomen pelvis w con Accession Number(s): [id number] cc: Ramon Mendez; Lacho Garcia MD; Emily Amanda MD~ Examination: CT abdomen with intravenous contrast CT pelvis with intravenous contrast 2-D coronal reconstructions 2-D sagittal reconstructions Date and time of exam:September 08, 2024 0831 hours INDICATIONS: Abdominal pain today, history ruptured spleen. CTDI: vol (mGy) 5.98 DLP: (mGycm) 352 Technique: Multiple axial sections of the abdomen and pelvis have been obtained. 64 slice high-resolution scanner used. 3 mm axial sections have been obtained, post intravenous injection 60 cc [id number] 2-D sagittal, coronal reconstructions obtained. Low dose protocols were performed. One or more of the following dose reduction techniques were used; automated exposure control, adjustment of the mA and/or KV according to patient size, use of iterative reconstruction technique. Findings: Small left pleural effusion, atelectasis versus pneumonia at the left lung base Mild enlargement cardiac contour Larger blood collection adjacent to the lacerated spleen, axial image 45, currently measuring 9.0 x 6.3 cm compared to 7.1 x 4.5 cm on September 01, 2024 No liver or spleen renal laceration Aorta normal size No bowel obstruction Colonic diverticulosis, no diverticulitis Urinary bladder intact IMPRESSION: Splenic trauma findings again noted with larger blood collection subcapsular to the spleen, currently measuring 9.0 x 6.3 cm compared to 7.1 x 4.5 cm on September 01, 2024 Recommend surgical consultation Dictated By: Lacho Garcia MD Signed By: <Electronically signed by Lacho Garcia MD in OV> 09/08/24927 Medications / Prescriptions Medications or Prescriptions considered but not ordered:: None Medication administrations:: Medication Administration History Sodium Chloride (Ns) 1,000 mls @ 125 mls/hr IV .Q8H ONE Stop: 09/08/24 19:15 Last Admin: 09/08/24 11:44 Dose: 125 mls/hr Documented By: ED Discontinued Medications Hydralazine HCl (Hydralazine Inj 20 Mg/Ml Vial) 10 mg IV X1 ONE Stop: 09/08/24 11:36 Last Admin: 09/08/24 11:54 Dose: 10 mg Documented By: ED Labetalol HCl (Labetalol Inj 5 Mg/Ml Vial 20 Ml) 10 mg IVP X1 ONE Stop: 09/08/24 09:34 Last Admin: 09/08/24 09:59 Dose: 10 mg Documented By: ED Labetalol HCl (Labetalol Inj 5 Mg/Ml Vial 20 Ml) 10 mg IVP X1 ONE Stop: 09/08/24 12:47 Morphine Sulfate (Morphine Sulf Inj 10 Mg/Ml Vial) 4 mg IVP X1 ONE Stop: 09/08/24 07:10 Last Admin: 09/08/24 07:34 Dose: 4 mg Documented By: ED Morphine Sulfate (Morphine Sulf Inj 10 Mg/Ml Vial) 4 mg IVP X1 ONE Stop: 09/08/24 09:32 Last Admin: 09/08/24 09:56 Dose: 4 mg Documented By: ED Morphine Sulfate (Morphine Sulf Inj 10 Mg/Ml Vial) 4 mg IVP X1 ONE Stop: 12/16/24 11:37 Last Admin: 09/08/24 11:52 Dose: 4 mg Documented By: ED Morphine Sulfate (Morphine Sulf Inj 10 Mg/Ml Vial) 4 mg IVP X1 ONE Stop: 09/08/24 12:47 Ondansetron HCl (Ondansetron Inj 2 Mg/Ml Inj 2 Ml) 4 mg IV X1 ONE; Protocol Stop: 09/08/24 06:44 Last Admin: 09/08/24 06:51 Dose: 4 mg Documented By: KD Ondansetron HCl (Ondansetron Inj 2 Mg/Ml Inj 2 Ml) 4 mg IV X1 ONE; Protocol Stop: 09/08/24 11:38 Last Admin: 09/08/24 11:47 Dose: 4 mg Documented By: ED See above Consultations Consultation(s) initiated? (list below): Yes Consultation #1 (Physician, Specialty, Details): I spoke with transfer nurse at [facility]. Discussed patients PMHx, HPI, ED course, exam findings, labs, and radiology results. Time: 11:15 Consultation #2 (Physician, Specialty, Details): I spoke with our surgeon Dr. Prabhakar. States she does not perform splenectomy and advised transferring the patient. Time: 11:20 Diagnosis Differential diagnosis abdominal pain: abdominal pain, calculus of kidney and pancreatitis Most likely diagnosis given after review of the tests above:: Abdominal pain ruptured spleen Admission Indicated Admission indicated?: not indicated Explain why admission is indicated or not indicated:: Requires higher level of care Admission Request Was there a request for admission?: No Disposition Plan Disposition Plan: Transfer (to [facility] ) Critical Care Time Critical Care Time Critical Care Time: Yes Total Critical Care Time (min.): 50 Attestation: The high probability of sudden, clinically significant deterioration in the patient's condition required the highest level of my preparedness to intervene urgently. The services I provided to this patient were to treat and/or prevent clinically significant deterioration. Services included the following: chart data review, reviewing nursing notes and/or old charts, documentation time, organizational effectiveness consultant collaboration regarding findings and treatment options, medication orders and management, direct patient care, vital sign assessments and ordering, interpreting and reviewing diagnostic studies and lab tests. Aggregate critical care time includes only time during which I was engaged in work directly related to the patient's care, as described above, whether at bedside or elsewhere in the Emergency Department. It did not include time spent performing other reported procedures or the services of residents, students, nurses or physician assistants. Discharge Plan Plan Patient Disposition: [facility] Pt Being Transferred to: [facility] Service Needed for Transfer: surgery Disposition Comment: Stable Prescriptions/Referrals Prescriptions/Med Rec: No Action fluconazole 150 mg tablet 150 mg PO QDAY Rx Instructions: once a week on sunday prednisone 20 mg tablet 20 mg PO QDAY Rx Instructions: pt takes only when he needs it allopurinol 100 mg tablet 100 mg PO QDAY hydrocodone-acetaminophen 10-325 mg tablet 1 tab PO BID PRN (Reason: Pain) ergocalciferol (vitamin D2) 1,250 mcg (50,000 unit) capsule 1,250 mcg PO QWEEK Rx Instructions: took on colchicine 0.6 mg tablet 0.6 mg PO QDAY Cortrophin Gel 80 unit/mL gel 80 unit SUBCUT DAILY PRN (Reason: Pain) Patient Comments: INJECT 1ML (80 UNITS) UNDER THE SKIN ONCE DAILY NEEDED INSTRUCTED FOR FLARE UP carvedilol 12.5 mg Tablet 12.5 mg PO DAILY Rx Instructions: must administer with a meal/food lisinopril 20 mg tablet 10 mg PO BID Patient Comments: TAKE 2 TABLETS BY MOUTH EVERY DAY Rx Instructions: Patient states he only takes as needed when BP really bad. quetiapine 25 mg tablet 25 mg PO PRN PRN (Reason: Sleep) omeprazole 20 mg Capsule,Delayed Release(Dr/Ec) 20 mg PO QDAY acetaminophen 325 mg Tablet 650 mg PO Q6H PRN (Reason: Pain Scale 1-3 (Mild) Qty: 15 0RF Referrals: Ramon Lainez [Primary Care Provider] - In 1 week Problem List Clinical Impression: Abdominal pain, Rupture of spleen Patient/Caregiver Discharge Instructions Print Language: French Stand Alone Forms: Shona Award Info., Patient Portal Info Letter
--- NOTE | 2024-09-08 07:32 | PC.NURSE ---
Pt. here from home to room 18, pt. laying in bed stating he has left upper and lower quadrant abdominal pain, pt. states he was here last week for the same thing, pt. states he has pancreatitis, pt. states he used to use drugs and alcohol but denies use now. Pt. sitting up in bed, 2 warm blankets given, pt. states he has nausea but no vomiting.
[2024-09-08] MEDS: MORPHINE SULF INJ 10 MG/ML VIAL 4 MG IVP ×4 (07:34→13:10)
--- NOTE | 2024-09-08 08:20 | PC.NURSE ---
Pt. laying in bed in room 18 with his eyes closed, no s/s of distress noted.
[2024-09-08] MEDS: LABETALOL INJ 5 MG/ML VIAL 20 ML 10 MG IVP ×2 (09:59→13:12)
--- NOTE | 2024-09-08 10:02 | PC.NURSE ---
Pt. laying in bed in room 18, pt. spouse is bedside.
[2024-09-08] MEDS: SODIUM CHLORIDE 0.9% 1000 ML 1,000 ML 125 ML IV (11:44)
[2024-09-08] MEDS: hydrALAZINE INJ 20 MG/ML VIAL 10 MG IV (11:54)
--- NOTE | 2024-09-08 13:17 | PC.CM ---
Addendum entered by Jaci Howell RN 09/08/24 13:24: Patient accepted at [facility] with Dr. Henriquez going to the ED. I called and set up transport for 1400. Packet completed along with CD and left with charge nurse. Original Note: 1000 I received a request to transfer patient for ruptured splenic trauma. I reviewed chart and I see patient has been seen at [facility]. I faxed over information.
== END 2024-09-08 14:00 | disposition short-term general hospital (02) ==
PROVIDERS: Emergency Provider Emergency Medicine; PCP Physician Assistant
DX: D73.5 Infarction of spleen (principal)
CPT/HCPCS: 36415; 74177; 80053; 80307; 81001; 83605; 83690; 84145; 85025; 86850; 86900; 86901; 87400; 87811; 96374; 96375; 96376; 99285; A4649; J0360; J2270; J2405; J3490; J7030; Q9967; J1920

== ENCOUNTER 2024-11-14 08:26 | Inpatient (IN) | payer MEDICAID, SELFPAY ==
[2024-11-14] VITALS (28 sets, daily range): BP systolic 123–159; BP diastolic 62–99; PULSE 20–106; RESP 16–99; TEMP 36.8–38; O2SAT 95–100; BMI 21.2; BMI 21.5
--- NOTE | 2024-11-14 09:15 | EKG_ITS ---
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
--- NOTE | 2024-11-14 09:16 | PD.EDRME ---
Rapid Medical Screening Exam RME Arrival date/time: 11/14/24 08:26 44-year-old male presents to the emergency department with complaints of low hemoglobin sent over by his PCP I have greeted and performed a focused initial assessment of this patient. Initial appropriate labs ordered at this time. A comprehensive ED assessment and evaluation of the patient and analysis of all test and completion of medical decision making process will be conducted by additional ED provider. Chief Complaint: General Adult/Misc Complain Time Seen by Provider: 11/14/24 08:57 Vital signs: Vital Signs Temperature 98.7 F 11/14/24 09:13 Pulse Rate 106 H 11/14/24 09:13 Respiratory Rate 18 11/14/24 09:13 Blood Pressure 123/75 11/14/24 09:13 Pulse Oximetry (%) 100 11/14/24 09:13 Oxygen Delivery Method Room Air 11/14/24 09:13
[2024-11-14 10:00] LABS: Basophils % (Auto) 0 % (0-2.5); Eosinophils % (Auto) 0 % (0-10); Immature Granulocytes % (Auto) 1 % (0-0); Immature Granulocytes Auto 0.09 Thou/mm3 (0.00-0.00); Lymphocytes # (Auto) 1.5 Thou/mm3 (1.0-4.8); Lymphocytes % (Auto) 15 % (10-50); Mean Corpuscular HGB Conc 29.1 g/dl (31.0-37.0); Mean Corpuscular Volume 79 fL (80-100); Monocytes # (Auto) 0.8 Thou/mm3 (0.0-0.8); Monocytes % (Auto) 8 % (0-12); Neutrophils # (Auto) 7.8 Thou/mm3 (1.8-7.7); Neutrophils % (Auto) 76 % (37-80); Nucleated Red Blood Cell # 0.02 Thou/mm3 (0.00-0.00); Nucleated Red Blood Cell % 0 /100 WBC (0); Platelet Count 664 Thou/mm3 (140-440); RDW Standard Deviation 45.7 fL (35.1-43.9); Red Blood Count 2.26 Miln/mm3 (4.50-5.90); White Blood Count 10.3 Thou/mm3 (3.8-10.6)
--- NOTE | 2024-11-14 10:11 | PC.NURSE ---
Patient presents to ED with c/o low hemoglobin as was seen at MD office and c/o dark stools. Patient is alert and oriented and ambulatory. Patient with hx of pancreatitis and liver problems. Patient placed on color television console monitor and call light is within reach.
[2024-11-14 10:12] LABS: Hematocrit 17.9 % (41.0-53.0); Hemoglobin 5.2 g/dL (13.5-16.0)
[2024-11-14 10:15] LABS: INR 1.1 (0.9-1.3); Partial Thromboplastin Time 27.8 Seconds (22.0-36.0); Prothrombin Time 12.1 Seconds (9.0-12.2)
[2024-11-14 10:18] LABS: Path Review Blood Smear Sent to Pathologist
[2024-11-14 10:34] LABS: Alanine Aminotransferase 9 U/L (10-49); Albumin, Serum 3.6 gm/dL (3.5-5.0); Albumin/Globulin Ratio 1.2 (1.2-2.2); Alkaline Phosphatase 125 U/L (46-116); Anion Gap 7 (7-16); Aspartate Amino Transferase 14 U/L (0-34); BUN/Creatinine Ratio 9 Ratio (12-20); Bilirubin,Total 0.2 mg/dL (0.3-1.2); Blood Urea Nitrogen 7 mg/dL (9-23); Calcium 8.7 mg/dL (8.3-10.6); Carbon Dioxide 22.2 mMol/L (20.0-31.0); Chloride 105 mMol/L (98-107); Creatinine (Component) 0.8 mg/dL (0.6-1.3); Estimated Creatinine Clearance 103.9 mL/min (>60); Glucose 81 mg/dL (74-106); Lipase 33 U/L (12-53); Magnesium 1.8 mg/dL (1.6-2.6); Osmolality,Calculated 265 (275-295); Sodium 134 mMol/L (136-145); Total Protein 6.6 gm/dL (5.7-8.2); Troponin I < 0.002 ng/mL (0.0-0.045); eGFR > 60 See Note
--- NOTE | 2024-11-14 11:15 | EDNOTE_ITS ---
<Statement entered by Emily Amanda MD - 11/15/24 18:38> As co-signing physician, I was present and available for consult prn. I concur with the plan and care as documented by the midlevel provider. ED General RME/HPI General Chief complaint: General Adult/Misc Complain Stated complaint: LOW HEMOGLOBIN Time Seen by Provider: 11/14/24 08:57 Arrival date/time: 11/14/24 08:26 RME / HPI RME / HPI narrative: 44-year-old male patient was sent to us by PCP for low hemoglobin. Patient's been complaining of easy fatigability, dyspnea on activity, dizziness, severity moderate. Patient denies any abdominal pain. Denies any vomiting blood or blood in the stool. He is currently taking multivitamins for his anemia. Denies any other complaints. Patient was seen here multiple times for anemia 1 time he was transferred to [facility] for splenic laceration last September 01. According to the patient patient stayed there for 5 days and no surgical intervention was done. Was sent home on the fifth day. Patient came back again here for the same complaints after 1 week and was transferred again to [facility] and was observed overnight and was discharged the following day. Still no intervention to his splenic rupture. Related Data Home Medications ?Medication ?Instructions ?Recorded ?Confirmed carvedilol 12.5 mg tablet 12.5 mg PO DAILY 08/10/23 lisinopril 20 mg tablet 10 mg PO BID 08/10/23 quetiapine 25 mg tablet 25 mg PO PRN PRN Sleep 04/1408/08/24 allopurinol 100 mg tablet 100 mg PO QDAY 06/27/2407/25 colchicine 0.6 mg tablet 0.6 mg PO QDAY 06/27/2407/25 corticotropin 80 unit/mL injection 80 unit subcut ZAHRA Y PRN Pain 06/27/24 08/08/24 gel (Cortrophin Gel) ergocalciferol (vitamin D2) 1,250 1,250 mcg PO QWEEK 1 08/08/24 mcg (50,000 unit) capsule fluconazole 150 mg tablet 150 mg PO QDAY 06/27/2407/25 hydrocodone 10 mg-acetaminophen 1 tab PO BID PRN Pain 06/27/24 08/08/24 325 mg tablet prednisone 20 mg tablet 20 mg PO QDAY 06/27/2408/08 omeprazole 20 mg capsule,delayed 20 mg PO QDAY 4 08/08/24 release Previous Rx's ?Medication ?Instructions ?Recorded acetaminophen 325 mg tablet 650 mg (2 x 325 mg) PO Q6H PRN 08/11/24 Pain Scale 1-3 (Mild #15 tabs Allergies Allergy/AdvReac Type Severity Reaction Status Date / Time No Known Allergies Allergy Verified 11/14/24 08:30 Review of Systems Review of Systems Narrative Review of Systems: Review of system reviewed and within normal limits except mentioned in HPI ED Exam Narrative Physical exam: VITAL SIGNS: Reviewed. GENERAL APPEARANCE: Alert and interactive, follows commands, no acute distress, HEAD AND FACE: Non-traumatic. ENT: PERRL, pale conjunctiva, eyelid no trauma, Mucous membrane moist. NECK: Supple, nontender, no nuchal rigidity. CHEST: No tenderness, no crepitus, no paradoxical movement, no retractions. LUNGS: Clear, well ventilated, symmetric, no rales, no wheezing, no ronchi, no stridor, good breath sounds bilaterally. HEART: Regular rate, regular rhythm, no murmur, no gallops. ABDOMEN: Soft, positive bowel sounds, nondistended, no guarding, nontender, no rebound, no masses, RECTAL: Deferred. GENITAL: Deferred. NEUROLOGICAL: Gross motor function intact sensory function intact, Appropriate for age. MUSCULOSKELETAL: low back nontender, full range of motion. EXTREMITIES: Nontender, full range of motion. SKIN: Color pale, dry, no rash, no lacerations, no abrasions, no contusions. LYMPHATICS: Deferred. Course Quality Measures none Orders Category Date Time Status Bedside COVID-19 Antigen Test NOW Care 11/14/24 20:10 Active COVID-19 Screening Questionnaire NOW Care 11/14/24 21:[address] Screening NOW Care 11/14/24 16:51 Active Decision to Admit X1 Care 11/14/24 21:14 Active EKG (ED ONLY) *Do not use* NOW Care 11/14/24 09:15 Completed Insert IV NOW Care 11/14/24 09:15 Active NPO STAT Care 11/14/24 09:15 Active Occult Blood,Stool (Nursing) NOW Care 11/14/24 09:15 Active Transfuse,blood/blood products ONCE Care 11/14/24 11:22 Active Consult to Gastroenterology Stat Cons 11/14/24 21:06 Ordered Diet Regular Diet 11/14/[address] abdomen pelvis w con Stat Exams 11/14/24 16:51 Completed EKG (ED Only) Stat Exams 11/14/24 09:15 Draft CBC Stat Lab 11/14/24 09:46 Completed Comprehensive Metabolic Panel Stat Lab 11/14/24 09:46 Completed Lipase Stat Lab 11/14/24 09:46 Completed Magnesium Stat Lab 11/14/24 09:46 Completed PC [Red Blood Cells] Stat Lab 11/14/24 09:46 Completed Partial Thromboplastin Time Stat Lab 11/14/24 09:46 [address] Review Blood Smear Stat Lab 11/14/24 09:46 Completed Prothrombin Time with INR Stat Lab 11/14/24 09:46 Completed Troponin I Stat Lab 11/14/24 09:46 Completed Type and Screen Stat Lab 11/14/24 09:46 Completed Urinalysis Stat Lab 11/14/24 11:25 Completed Acetaminophen Tab [Tylenol Tab] Med 11/14/24 18:46 Discontinued 1,000 mg PO X1 ONE Pantoprazole Inj [Protonix Inj] Med 11/14/24 21:06 Discontinued 80 mg IV X1 ONE mg Hyd/Al Hyd/Haja Susp [Maalox Susp] Med 11/14/24 15:00 Discontinued 30 ml PO X1 ONE Late Tray Request Routine Oth 11/14/24 11:45 Active Vital Signs Vital signs: Vital Signs Temperature 98.7 F 11/14/24 09:13 Pulse Rate 106 H 11/14/24 09:13 Respiratory Rate 18 11/14/24 09:13 Blood Pressure 123/75 11/14/24 09:13 Pulse Oximetry (%) 100 11/14/24 09:13 Oxygen Delivery Method Room Air 11/14/24 09:13 [facility] Patient data External records reviewed:: None Clinical information provided by:: none Social determinants that could affect healthcare access:: none Patient has the following chronic illnesses:: History of splenic laceration How is presenting disease/condition affected by chronic disease/condition?: e xacerbated by Evaluation data The following diagnostics were reviewed and interpreted by me:: lab results, radiology exam(s) and EKG tracing(s) Lab and/or radiology exams considered but not ordered:: None Interpretation Summary: EKG showed sinus rhythm, ventricular rate of 85 bpm, no ST segment elevation depression noted. Laboratory workup significant for hemoglobin of 5.2 hematocrit of 17.9, platelet was noted to be 664,000. CT scan of the abdomen pelvis showed Blood collection subcapsular to the spleen measures smaller on this study compared to September 08, 2024 No free blood in the abdomen or pelvis Gastritis pattern Normal appendix Medications Medications considered but not ordered:: None Medication administrations:: Medication Administration History Discontinued Medications Acetaminophen (Acetaminophen 325 Mg Tablet) 1,000 mg PO X1 ONE Stop: 11/14/24 18:47 Last Admin: 11/14/24 18:50 Dose: 1,000 mg Documented By: ED Al Hydrox/Mg Hydrox/Simethicone (Mg Hyd/Al Hyd/Haja (Maalox Reg) Susp 30 Ml Udc) 30 ml PO X1 ONE Stop: 11/14/24 15:01 Last Admin: 11/14/24 15:04 Dose: 30 ml Documented By: ED Pantoprazole Sodium (Pantoprazole Inj 40 Mg Vial) 80 mg IV X1 ONE Stop: 11/14/24 21:07 IV Flonase, Tylenol, Maalox, and 3 units of packed RBC Consultations Consultation(s) initiated? (list below): Yes Consultation #1 (Physician, Specialty, Details): Dr. Orellana, discussed the case thank you Dr. Orellana Diagnosis Differential Diagnosis ED Complaint MDM: Upper GI bleed, anemia, subcapsular hematoma Most likely diagnosis given after review of the tests above:: Upper GI bleed anemia Admission Indicated Admission indicated?: indicated (Procardia management) Explain why admission is indicated or not indicated:: For further management Admission Request Was there a request for admission?: Yes Admission Attestation Admission request attestation: Discussed case with Dr Goodrich[] from Hospitalist service regarding admission. Discussed patients ED course, exam findings, labs, and radiology results. The Hospitalist [agrees] to accept the patient for admission. Disposition Plan Disposition Plan: Admit Medical Decision Making MDM Narrative MDM Narrative: 44-year-old male patient was sent to us by PCP for low hemoglobin. Patient's been complaining of easy fatigability, dyspnea on activity, dizziness, severity moderate. Patient denies any abdominal pain. Denies any vomiting blood or blood in the stool. He is currently taking multivitamins for his anemia. Denies any other complaints. Patient was seen here multiple times for anemia 1 time he was transferred to [facility] for splenic laceration last September 01. According to the patient patient stayed there for 5 days and no surgical intervention was done. Was sent home on the fifth day. Patient came back again here for the same complaints after 1 week and was transferred again to [facility] and was observed overnight and was discharged the following day. Still no intervention to his splenic rupture. Patient received 3 units of packed RBC and IV Protonix. I consulted Dr. Orellana, GI specialist on-call who told me to admit the patient he will take him the patient tomorrow. Spoke with hospitalist who admitted the patient. Differential Diagnosis Differential Diagnosis: Upper GI bleed, anemia, subcapsular hematoma Lab Data 11/14/24 09:46 11/14/24 09:46 Labs: Lab Results 11/14/24 11/14/24 Range/Units 09:46 11:25 WBC 10.3 (3.8-10.6) Thou/mm3 RBC 2.26 L (4.50-5.90) Miln/mm3 Hgb 5.2 L* (13.5-16.0) g/dL Hct 17.9 L* (41.0-53.0) % MCV 79 L (80-100) fL MCH 23.0 L (25.0-35.0) pg MCHC 29.1 L (31.0-37.0) g/dl RDW Std Deviation 45.7 H (35.1-43.9) fL Plt Count 664 H (140-440) Thou/mm3 Neut % (Auto) 76 (37-80) % Lymph % (Auto) 15 (10-50) % Campbell % (Auto) 8 (0-12) % Eos % (Auto) 0 (0-10) % Baso % (Auto) 0 (0-2.5) % Neut # (Auto) 7.8 H (1.8-7.7) Thou/mm3 Lymph # (Auto) 1.5 (1.0-4.8) Thou/mm3 Campbell # (Auto) 0.8 (0.0-0.8) Thou/mm3 Eos # (Auto) 0.0 (0.0-0.5) Thou/mm3 Baso # (Auto) 0.0 (0.0-0.2) Thou/mm3 Immature Gran # (Auto) 0.09 H (0.00-0.00) Thou/mm3 Absolute Nucleated RBC 0.02 H (0.00-0.00) Thou/mm3 Immature Gran % 1 H (0-0) % Nucleated RBC % 0 (0) /100 WBC Smear Path Review Sent to Pathologist PT 12.1 (9.0-12.2) Seconds INR 1.1 (0.9-1.3) APTT 27.8 (22.0-36.0) Seconds Sodium 134 L (136-145) mMol/L Potassium 4.0 (3.4-5.1) mMol/L Chloride 105 (98-107) mMol/L Carbon Dioxide 22.2 (20.0-31.0) mMol/L Anion Gap 7 (7-16) BUN 7 L (9-23) mg/dL Creatinine 0.8 (0.6-1.3) mg/dL Estim Creat Clear Calc 103.9 (>60) mL/min eGFR > 60 (60 - ) See Note BUN/Creatinine Ratio 9 L (12-20) Ratio Glucose 81 (74-106) mg/dL Calculated Osmolality 265 L (275-295) Calcium 8.7 (8.3-10.6) mg/dL Corrected Calcium 9.0 (8.5-10.1) mg/dL Magnesium 1.8 (1.6-2.6) mg/dL Total Bilirubin 0.2 L (0.3-1.2) mg/dL AST 14 (0-34) U/L ALT 9 L (10-49) U/L Alkaline Phosphatase 125 H (46-116) U/L Troponin I < 0.002 (0.0-0.045) ng/mL Total Protein 6.6 (5.7-8.2) gm/dL Albumin 3.6 (3.5-5.0) gm/dL Globulin 3.0 (2.3-3.5) gm/dL Albumin/Globulin Ratio 1.2 (1.2-2.2) Lipase 33 (12-53) U/L Ur Collection Type Clean Catch Urine Color Colorless A (Lt Yel-Yel) Urine Clarity Clear (Clear/Hazy) Urine pH 6.5 (5.0-7.0) Ur Specific [place] 1.007 (1.001-1.035) Urine Protein Negative (Neg - Trace) Urine Glucose (UA) Negative (Negative) Urine Ketones Negative (Negative) Urine Blood Negative (Negative) Urine Nitrite Negative (Negative) Urine Bilirubin Negative (Negative) Urine Urobilinogen (Auto) Negative (0.0-1.0) mg/dL Ur Leukocyte Esterase Negative (Negative) Urine RBC < 1 (0-3) /hpf Urine WBC 0 (0-5) /hpf Ur Squamous Epith Cells 0 (0-5) /hpf Urine Bacteria None (None) Blood Type O Positive Antibody Screen NEGATIVE Crossmatch See Detail Blood Bank Wristband ID Yes Discharge Plan Plan Patient Disposition: Admit Acute Care w/in Hospital Disposition Comment: Stable Prescriptions/Referrals Prescriptions/Med Rec: No Action fluconazole 150 mg tablet 150 mg PO QDAY Rx Instructions: once a week on sunday prednisone 20 mg tablet 20 mg PO QDAY Rx Instructions: pt takes only when he needs it allopurinol 100 mg tablet 100 mg PO QDAY hydrocodone-acetaminophen 10-325 mg tablet 1 tab PO BID PRN (Reason: Pain) ergocalciferol (vitamin D2) 1,250 mcg (50,000 unit) capsule 1,250 mcg PO QWEEK Rx Instructions: took on colchicine 0.6 mg tablet 0.6 mg PO QDAY Cortrophin Gel 80 unit/mL gel 80 unit SUBCUT DAILY PRN (Reason: Pain) Patient Comments: INJECT 1ML (80 UNITS) UNDER THE SKIN ONCE DAILY NEEDED INSTRUCTED FOR FLARE UP carvedilol 12.5 mg Tablet 12.5 mg PO DAILY Rx Instructions: must administer with a meal/food lisinopril 20 mg tablet 10 mg PO BID Patient Comments: TAKE 2 TABLETS BY MOUTH EVERY DAY Rx Instructions: Patient states he only takes as needed when BP really bad. quetiapine 25 mg tablet 25 mg PO PRN PRN (Reason: Sleep) omeprazole 20 mg Capsule,Delayed Release(Dr/Ec) 20 mg PO QDAY acetaminophen 325 mg Tablet 650 mg PO Q6H PRN (Reason: Pain Scale 1-3 (Mild) Qty: 15 0RF Referrals: No Primary/Family,Physician [Primary Care Provider] - In 1 week Problem List Clinical Impression: Severe anemia, Upper GI bleed Patient/Caregiver Discharge Instructions Print Language: Armenian Stand Alone Forms: [facility] Award Info., Patient Portal Info Letter
[2024-11-14 11:33] LABS: Collection Type, Urine Clean Catch; Squamous Epithelial Cell,Urine 0 /hpf (0-5); WBC,Urine 0 /hpf (0-5)
[2024-11-14 11:41] LABS: Bilirubin,Urine Negative (Negative); Blood,Urine Negative (Negative); Clarity,Urine Clear (Clear/Hazy); Color,Urine Colorless (Lt Yel-Yel); Glucose, Urine Negative (Negative); Ketones,Urine Negative (Negative); Leukocyte Esterase,Urine Negative (Negative); Nitrite,Urine Negative (Negative); PH,Urine 6.5 (5.0-7.0); Protein,Urine Negative (Neg - Trace); RBC,Urine < 1 /hpf (0-3); Specific Gravity,Urine 1.007 (1.001-1.035); Urobilinogen,Urine Negative mg/dL (0.0-1.0)
--- NOTE | 2024-11-14 12:04 | PC.NURSE ---
Pt. signed consent for blood transfusion.
--- NOTE | 2024-11-14 12:08 | PC.NURSE ---
Pt. eating sandwich and drinking juice. Warm blankets given.
--- NOTE | 2024-11-14 12:11 | PC.NURSE ---
Pt. here from home to bed 11, pt. states he was told yesterday that he had a Hemoglobin of 4. Pt. states he has been having dark stools X 1.5 weeks. Pt. states he has history of a spleen laceration back in June. Pt. states when the dark stools started he was having abdominal pain. Pt. denies any vomiting. Pt. states he has a history of stomach ulcers.
--- NOTE | 2024-11-14 12:16 | PC.NURSE ---
Pt. states he got SOB walking down the [place]rez from E this morning to room 11.
[2024-11-14] MEDS: MG HYD/AL HYD/SIME (Maalox Reg) SUSP 30 ML UDC PO (15:04)
--- NOTE | 2024-11-14 16:50 | PC.NURSE ---
Chela CHIEF BUILDING INSPECTOR bedside doing rectal exam and occult test. Occult is positive and pt. states for 1.5 weeks he has had dark stools.
--- NOTE | 2024-11-14 16:51 | XR_ITS ---
Examination: CT abdomen with intravenous contrast CT pelvis with intravenous contrast 2-D coronal reconstructions 2-D sagittal reconstructions Comparison September 08, 2024 Date and time of exam:November 14, 2024 1821 hrs. Indications: Onset low hemoglobin and abdominal pain today., History splenic trauma with blood collection subcapsular to the spleen 9.0 x 6.[address] abdomen September 08, 2024 CTDI: vol (mGy) 5.70 DLP: (mGycm) 314 Technique: Multiple axial sections of the abdomen and pelvis have been obtained. 64 slice high-resolution scanner used. 3 mm axial sections have been obtained, post intravenous injection 60 cc [id number] 2-D sagittal, coronal reconstructions obtained. Low dose protocols were performed. One or more of the following dose reduction techniques were used; automated exposure control, adjustment of the mA and/or KV according to patient size, use of iterative reconstruction technique. Findings: Mild nodular parenchymal disease in the right lung and atelectasis versus pneumonia at the left base No focal liver lesion The blood collection subcapsular to the spleen measures smaller on this study 6.5 x 3.8 cm Mucosa in the stomach appears thickened This is not a CTA study to assess for extravasation of contrast Embolization material again noted anterior to the aorta No pancreatic mass Absent gallbladder No hydronephrosis No free blood in the abdomen or pelvis Normal appendix No bowel obstruction Colonic diverticulosis, no diverticulitis Urinary bladder wall thickening up to 7 mm Impression: Blood collection subcapsular to the spleen measures smaller on this study compared to September 08, 2024 No free blood in the abdomen or pelvis Gastritis pattern Normal appendix
--- NOTE | 2024-11-14 18:49 | PC.NURSE ---
Pt. has a temp 100.4, Chela [employer] SALES MANAGER informed states to continue blood and give Tylenol. Orders carried out.
[2024-11-14] MEDS: ACETAMINOPHEN 325 MG TABLET 1000 MG PO (18:50)
[2024-11-14] MEDS: PANTOPRAZOLE INJ 40 MG VIAL 80 MG IV (21:30)
--- NOTE | 2024-11-14 21:51 | PD.RESHP ---
Documentation for date of: 11/14/24 [facility] History of Present Illness Chief complaint: Low Hgb and Black stool History of present illness: This patient is a 44-year-old male with past medical history of hypertension, gout, chronic pancreatitis with pseudocyst, history of splenic laceration post splenic trauma in 2022 was transferred to [facility] twice however was managed conservatively only with pain medications in the past as patient was admitted in [facility] previously. He presented to the ED on 11/14/2024 from PCP office with low hemoglobin. Patient was complaining of fatigability and generalized weakness. Patient reported that 2 weeks ago he experienced abdominal discomfort and has been passing black stool which he thought was possibly related to his multivitamins and did not seek medical attention at that time. He stated that patient's abdominal discomfort resolved by its own at that time however he has been passing black stool. He denied noticing any bright red blood. He also had complaint of vomiting x 1 2 weeks ago. During assessment, patient denied any nausea/vomiting, chest pain, shortness of breath, burning sensation or dysuria. He did complain of mild abdominal discomfort more on the left side. Patient denied having a bowel movement today however had 1 yesterday black in color. In the ED, patient was mildly hypertensive, tachycardic with temperature 99. He was saturating well on room air. Labs were significant for acute drop in hemoglobin 5.2 hematocrit 17.9. Thrombocytosis. Coagulation panel was unremarkable. Chemistry panel showed electrolytes within normal limits. Kidney functions are stable with creatinine 0.8. LFTs within normal limits. T. bili 0.2. Troponin I was negative. Urinalysis was unremarkable. Guaiac test was positive. U tox ordered. Lipase was negative. EKG showed sinus rhythm with QTc 420. CT abdomen was taken which showed mild nodular parenchymal disease in the right lung with pneumonia at left base. Blood collection subcapsular to spleen smaller in size as compared to previous CT images. Colonic diverticulosis. Gastritis pattern. GI specialist was consulted and 3 units of PRBC were transfused along with Protonix 80 mg x 1 in the ED. PMH: As above PSH: Splenic laceration surgery with coils post spleen trauma in 2022, cholecystectomy SH: Quit drinking alcohol a month ago, denies smoking. History of cocaine intake. Allergies NKDA Home medications: Patient takes lisinopril 10 mg twice daily, omeprazole, only take allopurinol and prednisone for gout flares not taking colchicine, completed course of fluconazole for onychomycosis and takes Seroquel 25 mg at night Patient is admitted for further workup and management of GI bleed. Review of Systems Review of Systems Systems Reviewed: All systems reviewed, normal except as documented Past Medical History Past Medical History NEUROLOGIC: Negative Neurological Disorders CARDIAC: Positive Cardiac Disorders, Hypercholesterolemia and Hypertension GASTROINTESTINAL: Positive Gastrointestinal Disorders, Pancreatitis, Gastrointestinal Bleed, Ulcer, Gastroesophageal Reflux Disease and Obesity MUSCULOSKELETAL: Positive Musculoskeletal Disorders, Gout and Fractures ENT: Positive Cataracts HEMATOLOGIC: Positive Anemia OTHER HISTORY: Positive Hospitalization, Chicken Pox and Clostridium Difficile Family History FAMILY HISTORY: Positive Family Surgery Surgical History SURGICAL: Positive Abdominal Surgery (spleen & gallbladder) Social History SMOKING STATUS: Never smoker SECOND HAND EXPOSURE: No SUBSTANCE USE: heroin OCCUPATION: Works in [employer] Exam Vital Signs Temp Pulse Resp BP Pulse Ox O2 Del Method 99.0 F 81 20 146/99 H 100 Room Air 11/14/24 21:35 11/14/24 21:35 11/14/24 21:35 11/14/24 21:35 11/14/24 21:35 11/14/24 20:17 Narrative Exam GENERAL APPEARANCE: Patient is currently AOx3 pale appearing male in no acute distress. Saturating well on room air. HEENT: NC, AT. MMM. EOMI, clear conjunctiva, oropharynx clear. NECK: Supple without lymphadenopathy. No stiffness or restricted ROM. HEART: Sinus tachycardia with regular rhythm, normal S1/S2, no m/r/g LUNGS: CTAB, moving air well. No crackles or wheezes are heard. ABDOMEN: Soft, left upper quadrant tenderness noticed, nondistended with good bowel sounds heard. BACK: No CVAT, no obvious deformity. EXTREMITIES: Without cyanosis, clubbing or edema. NEUROLOGICAL: Grossly nonfocal. Alert and oriented, moving all 4 extremities. CN not formally tested but appear grossly intact. Observed to ambulate with normal gait. Skin: Warm and dry without any rash. Pallor Psych: Appropriate mood and affect Results: Labs 11/14/24 09:46 11/14/24 09:46 Labs: Short CBC 11/14/24 Range/Units 09:46 WBC 10.3 (3.8-10.6) Thou/mm3 Hgb 5.2 L* (13.5-16.0) g/dL Hct 17.9 L* (41.0-53.0) % Plt Count 664 H (140-440) Thou/mm3 BMP 11/14/24 09:46 Sodium 134 L Potassium 4.0 Chloride 105 Carbon Dioxide 22.2 BUN 7 L Creatinine 0.8 Glucose 81 Calcium 8.7 Cardiac Enzymes 11/14/24 Range/Units 09:46 Troponin I < 0.002 (0.0-0.045) ng/mL Liver Function 11/14/24 Range/Units 09:46 Total Bilirubin 0.2 L (0.3-1.2) mg/dL AST 14 (0-34) U/L ALT 9 L (10-49) U/L Alkaline Phosphatase 125 H (46-116) U/L Albumin 3.6 (3.5-5.0) gm/dL Urine 11/14/24 Range/Units 11:25 Urine Color Colorless A (Lt Yel-Yel) Urine Clarity Clear (Clear/Hazy) Urine pH 6.5 (5.0-7.0) Ur Specific [place] 1.007 (1.001-1.035) Urine Protein Negative (Neg - Trace) Urine Glucose (UA) Negative (Negative) Quality Measures Quality Measures VTE prophylaxis (SCDs) Medications Home Medications and Allergies Home Medications ?Medication ?Instructions ?Recorded ?Confirmed ?Type carvedilol 12.5 mg tablet 12.5 mg PO DAILY 08/10/23 08/08/24 History lisinopril 20 mg tablet 10 mg PO BID 08/10/23 08/08/24 History quetiapine 25 mg tablet 25 mg PO PRN PRN Sleep 04/14/24 08/08/24 History allopurinol 100 mg tablet 100 mg PO QDAY 06/27/24 08/08/24 History colchicine 0.6 mg tablet 0.6 mg PO QDAY 06/27/24 08/08/24 History corticotropin 80 unit/mL injection 80 unit subcut DAILY PRN Pain 06/27/24 08/08/24 History gel (Cortrophin Gel) ergocalciferol (vitamin D2) 1,250 1,250 mcg PO QWEEK 06/27/24 08/08/24 History mcg (50,000 unit) capsule fluconazole 150 mg tablet 150 mg PO QDAY 06/27/24 08/08/24 History hydrocodone 10 mg-acetaminophen 1 tab PO BID PRN Pain 06/27/24 08/08/24 History 325 mg tablet prednisone 20 mg tablet 20 mg PO QDAY 06/27/24 08/08/24 History omeprazole 20 mg capsule,delayed 20 mg PO QDAY 08/08/24 08/08/24 History release Allergies Allergy/AdvReac Type Severity Reaction Status Date / Time No Known Allergies Allergy Verified 11/14/24 08:30 Visit Medications Acetaminophen (Acetaminophen 325 Mg Tablet) 650 mg PO Q6H PRN PRN Reason: Fever >101.5 Stop: 12/14/24 21:38 Acetaminophen (Acetaminophen Supp 650 Mg Supp) 650 mg ND Q6H PRN PRN Reason: PAIN SCALE 1-3 (mild Stop: 12/14/24 21:38 Hydrocodone Bitart/Acetaminophen (Hydrocodone/Apap 5/325 Tablet) 1 tab PO Q4HR PRN PRN Reason: PAIN SCALE 4-6 (Moderate Stop: 11/19/24 21:38 Al Hydrox/Mg Hydrox/Simethicone (Mg Hyd/Al Hyd/Haja (Maalox Reg) Susp 30 Ml Udc) 30 ml PO Q6H PRN PRN Reason: Indigestion Stop: 12/14/24 21:38 Octreotide Acetate 1,000 mcg/ (Sodium Chloride) 102 mls @ 5.1 mls/hr IV .Q20H ONE; Protocol Stop: 11/15/24 17:42 Octreotide Acetate 1,000 mcg/ (Sodium Chloride) 102 mls @ 5.1 mls/hr IV .Q20H SEVEN; Protocol Stop: 11/19/24 21:43 Magnesium Sulfate (Magnesium Sulfate Ivpb) 2 gm in 50 mls @ 25 mls/hr IV X1 ONE Stop: 11/14/24 23:42 Morphine Sulfate (Morphine Sulf Inj 10 Mg/Ml Vial) 1 mg IVP Q4H PRN PRN Reason: PAIN SCALE 7-10 (Severe Stop: 11/19/24 21:38 Ondansetron HCl (Ondansetron Inj 2 Mg/Ml Inj 2 Ml) 4 mg IV Q6H PRN; Protocol PRN Reason: NAUSEA OR VOMITING Stop: 12/14/24 21:38 Pantoprazole Sodium (Pantoprazole Inj 40 Mg Vial) 40 mg IVP BID SEVEN Stop: 12/15/24 08:59 Sennosides (Senna Tablet) 1 tab PO QDAY PRN; Protocol PRN Reason: constipation Stop: 12/14/24 21:38 Discontinued Medications Acetaminophen (Acetaminophen 325 Mg Tablet) 1,000 mg PO X1 ONE Stop: 11/14/24 18:47 Last Admin: 11/14/24 18:50 Dose: 1,000 mg Al Hydrox/Mg Hydrox/Simethicone (Mg Hyd/Al Hyd/Haja (Maalox Reg) Susp 30 Ml Udc) 30 ml PO X1 ONE Stop: 11/14/24 15:01 Last Admin: 11/14/24 15:04 Dose: 30 ml Pantoprazole Sodium (Pantoprazole Inj 40 Mg Vial) 80 mg IV X1 ONE Stop: 11/14/24 21:07 Last Admin: 11/14/24 21:30 Dose: 80 mg Assessment & Plan Plan Summary: This patient is a 44-year-old male with past medical history of hypertension, gout, chronic pancreatitis with pseudocyst, history of splenic laceration was transferred to [facility] twice however was managed conservatively only with pain medications presented to the ED on 11/14/2024 from PCP office with low hemoglobin. He complained of left abdominal discomfort x 2 weeks ago. He has been passing black stool from last 2 weeks. Patient is admitted for GI bleed workup. #Acute blood loss anemia: #GI bleed, likely upper #History of subcapsular hematoma currently stable #History of splenic laceration in 2023 #Gastritis #History of alcohol use ? Patient presented from PCP office with low hemoglobin of 5.2. He did complain of abdominal discomfort x 2 weeks ago with 1 of vomiting episode and black stool for last 2 weeks. On 08/09/2024, EGD showed esophagitis and gastritis pattern. Patient quit drinking alcohol a month ago. ? CT abdominal showed subcapsular hematoma smaller in size as compared to previous CT imagings and gastritis pattern. ? In the ED, patient was mildly hypertensive, tachycardic and afebrile. ? Labs were significant for hemoglobin 5.2 hematocrit 17.9. Guaiac test positive. Lipase was negative. ? LFTs unremarkable. In the ED, patient received 3 units of blood transfusion and Protonix 80 mg x 1. ? EKG showed sinus rhythm. Plan: ? 3 units PRBC transfused post H&H follow-up ? Protonix 40 mg IV twice daily ? GI consulted, appreciate recommendations ? Given history of alcohol use, GI specialist recommended to start octreotide drip ? N.p.o. for now ? Monitor for signs of bleeding and bruising ? Daily CBC ? Replete electrolytes as necessary #History of chronic pancreatitis, stable #History of alcohol abuse ? Lipase was negative Plan: ? Currently no active intervention #History of hypertension ? Patient takes lisinopril at home Plan: ? Restarting lisinopril 10 mg in the morning #History of gout ? Patient only takes allopurinol and prednisone during flare. Stopped taking colchicine. Plan: ? No active intervention at this point #History of substance abuse ? Previous U tox was positive for cocaine in August 2024 Plan: ? U tox positive for cocaine #Insomnia ? Patient takes quetiapine 25 mg as needed for sleep Plan: ? Restarted Seroquel 25 mg at night #History of onychomycosis ? Patient already completed course of fluconazole for 3 months. Health maintenance Diet: N.p.o. DVT prophylaxis: SCDs GI prophylaxis: Protonix 40 mg IV twice daily CODE STATUS: Full code Disposition: Patient is admitted for further workup and management of GI bleed Plan of care was discussed with attending physician, Dr. Tino Lara MD, PGY 2 Attending Provider Attestation/Addendum Pt was evaluated and plan formulated together with the housestaff team. I have reviewed the residents note above and agree with most of its content. Please refer to the residents note for additional details. A 44-year-old male presented to the ER with the chief complaint of fatigability and generalized weakness. The patient reported experiencing abdominal discomfort and black stools for the past two weeks, initially attributing the stool discoloration to his multivitamin use and not seeking medical attention. He stated that the abdominal discomfort resolved spontaneously, but the black stools persisted. He denied noticing any bright red blood. Additionally, he reported a single episode of vomiting two weeks ago. During the ED assessment, he denied any nausea, vomiting, chest pain, shortness of breath, burning sensation, or dysuria. However, he did report mild abdominal discomfort, predominantly on the left side. He denied having a bowel movement on the day of evaluation but stated he had one the previous day, which was black in color. The patient has a history of hypertension, gout, and chronic pancreatitis with a pseudocyst. He also has a history of splenic laceration due to trauma in 2023, which was managed conservatively with pain medications during previous admissions at [facility]. In the Emergency Department, the patient was found to be mildly hypertensive and tachycardic, with a temperature of 99?F. He was saturating well on room air. Laboratory results were significant for an acute drop in hemoglobin to 5.2 and hematocrit to 17.9, along with thrombocytosis. The coagulation panel was unremarkable, electrolytes were within normal limits, and kidney function was stable with a creatinine of 0.8. Liver function tests, including total bilirubin, were within normal limits. Troponin I was negative, urinalysis was unremarkable, and a guaiac test was positive. A CT abdomen revealed mild nodular parenchymal disease in the right lung with pneumonia at the left base, a subcapsular blood collection in the spleen smaller in size compared to previous imaging, colonic diverticulosis, and a gastritis pattern. A GI specialist was consulted, and the patient received three units of PRBCs along with an 80 mg dose of Protonix in the ED. The patient is admitted for further workup and management of GI bleeding.
[2024-11-14] MEDS: Magnesium Sulfate 2 GM Ivpb 2 GM/50 ML BAG IV (22:02)
[2024-11-14] MEDS: OCTREOTIDE ACET INJ 1,000 MCG in SODIUM CHLORIDE 0.9% 100 ML 5.1 MCG IV (22:02)
[2024-11-14 22:18] LABS: Amphetamine/Methamp Scrn,U Negative (Negative); Barbiturate Screen,Urine Negative (Negative); Benzodiazepines Screen,Urine Negative (Negative); Benzoylecgonine Screen, Ur Positive (Negative); Fentanyl Screen,Urine Negative (Negative); Opiate Screen,Urine Negative (Negative); THC Screen,Urine Negative (Negative)
[2024-11-15] VITALS (19 sets, daily range): BP systolic 100–152; BP diastolic 57–97; PULSE 58–88; RESP 14–99; TEMP 36.2–37.2; O2SAT 97–100; BMI 21.2
[2024-11-15] MEDS: QUEtiapine FUMARATE 25 MG TABLET PO ×2 (00:12→20:04)
[2024-11-15] MEDS: ONDANSETRON INJ 2 MG/ML INJ 2 ML 4 MG IV (00:15)
[2024-11-15] MEDS: MORPHINE SULF INJ 10 MG/ML VIAL IVP ×2 (00:16→04:33)
[2024-11-15 00:59] LABS: Basophils % (Auto) 1 % (0-2.5); Eosinophils % (Auto) 1 % (0-10); Hematocrit 26.9 % (41.0-53.0); Immature Granulocytes % (Auto) 1 % (0-0); Immature Granulocytes Auto 0.04 Thou/mm3 (0.00-0.00); Lymphocytes # (Auto) 2.3 Thou/mm3 (1.0-4.8); Lymphocytes % (Auto) 28 % (10-50); Mean Corpuscular Hemoglobin 25.5 pg (25.0-35.0); Mean Corpuscular Volume 80 fL (80-100); Monocytes # (Auto) 0.6 Thou/mm3 (0.0-0.8); Monocytes % (Auto) 7 % (0-12); Neutrophils # (Auto) 5.1 Thou/mm3 (1.8-7.7); Neutrophils % (Auto) 63 % (37-80); Nucleated Red Blood Cell % 0 /100 WBC (0); Platelet Count 584 Thou/mm3 (140-440); RDW Standard Deviation 45.3 fL (35.1-43.9); Red Blood Count 3.37 Miln/mm3 (4.50-5.90)
[2024-11-15 01:29] LABS: Hemoglobin 8.6 g/dL (13.5-16.0)
[2024-11-15] MEDS: HYDROcodone/APAP 5/325 TABLET 1 TAB PO ×3 (03:17→20:04)
[2024-11-15 07:00] LABS: Basophils # (Auto) 0.1 Thou/mm3 (0.0-0.2); Basophils % (Auto) 1 % (0-2.5); Eosinophils # (Auto) 0.1 Thou/mm3 (0.0-0.5); Eosinophils % (Auto) 1 % (0-10); Hematocrit 27.6 % (41.0-53.0); Immature Granulocytes % (Auto) 1 % (0-0); Immature Granulocytes Auto 0.03 Thou/mm3 (0.00-0.00); Lymphocytes # (Auto) 1.8 Thou/mm3 (1.0-4.8); Lymphocytes % (Auto) 30 % (10-50); Mean Corpuscular HGB Conc 31.9 g/dl (31.0-37.0); Mean Corpuscular Hemoglobin 25.4 pg (25.0-35.0); Mean Corpuscular Volume 80 fL (80-100); Monocytes # (Auto) 0.4 Thou/mm3 (0.0-0.8); Monocytes % (Auto) 7 % (0-12); Neutrophils # (Auto) 3.8 Thou/mm3 (1.8-7.7); Neutrophils % (Auto) 61 % (37-80); Nucleated Red Blood Cell % 0 /100 WBC (0); Platelet Count 568 Thou/mm3 (140-440); RDW Standard Deviation 45.2 fL (35.1-43.9); Red Blood Count 3.47 Miln/mm3 (4.50-5.90); White Blood Count 6.2 Thou/mm3 (3.8-10.6)
[2024-11-15 07:04] LABS: INR 1.1 (0.9-1.3); Partial Thromboplastin Time 28.6 Seconds (22.0-36.0); Prothrombin Time 11.9 Seconds (9.0-12.2)
[2024-11-15 07:16] LABS: Hemoglobin 8.8 g/dL (13.5-16.0)
[2024-11-15 07:28] LABS: Alanine Aminotransferase < 7 U/L (10-49); Albumin, Serum 3.5 gm/dL (3.5-5.0); Albumin/Globulin Ratio 1.3 (1.2-2.2); Alkaline Phosphatase 114 U/L (46-116); Anion Gap 9 (7-16); Aspartate Amino Transferase < 10 U/L (0-34); BUN/Creatinine Ratio 8 Ratio (12-20); Bilirubin,Total 0.3 mg/dL (0.3-1.2); Blood Urea Nitrogen 6 mg/dL (9-23); Calcium (Corrected) 9.4 mg/dL (8.5-10.1); Carbon Dioxide 23.7 mMol/L (20.0-31.0); Chloride 105 mMol/L (98-107); Creatinine (Component) 0.8 mg/dL (0.6-1.3); Estimated Creatinine Clearance 102.6 mL/min (>60); Globulin 2.8 gm/dL (2.3-3.5); Glucose 128 mg/dL (74-106); Magnesium 2.2 mg/dL (1.6-2.6); Osmolality,Calculated 275 (275-295); Phosphorous 4.7 mg/dL (2.4-5.1); Potassium 4.5 mMol/L (3.4-5.1); Sodium 138 mMol/L (136-145); Total Protein 6.3 gm/dL (5.7-8.2); eGFR > 60 See Note
[2024-11-15] MEDS: PANTOPRAZOLE INJ 40 MG VIAL IVP ×2 (08:53→20:02)
--- NOTE | 2024-11-15 08:53 | ESPR_ITS ---
<Statement entered by Man Hoover MD - 11/15/24 17:05> I discussed with and supervised the regulatory intern physician involved in the care of this patient. Patient assessment and plan was discussed with entire medicine team, including my attending. I agree with the assessment and plan as documented by regulatory intern doctor. Patient care was discussed with my attending physician Dr. Indu Hoover, PGY-2 Documentation for date of: 11/15/24 Subjective Subjective Interval history: Patient was seen and examined at bedside this AM. No acute exents overnight. Patient NPO, adequate urine output and mentation is at baseline. Patient complains of epigastric pain, burning in nature. Currently patient is on octreotide infusion and Protonix 40 Mg IV twice daily. Pending EGD today. Gastroenterology, Dr. Orellana consulted and closely following the case. Appreciate recommendations Exam Vital Signs Temp Pulse Resp BP Pulse Ox O2 Del Method O2 Flow Rate 97.3 F 74 17 126/81 99 Room Air 100 11/15/24 07:23 11/15/24 07:23 11/15/24 07:23 11/15/24 07:23 11/15/24 07:23 11/15/24 07:23 11/14/24 21:58 Narrative Exam Constitutional Alert, oriented x 3 and comfortable. Young male, thin, pale and moist mucous membranes HEENT Vision grossly intact. Patent nares. Trachea midline Respiratory Chest normal on inspection and clear auscultation bilaterally Cardiovascular S1 and S2 audible, RRR. No murmurs carotid bruit. No gross JVD. Abdominal Soft and tender to deep palpation in the epigastrium. Lower abdominal striae present. Bowel sounds present Genitourinary No bladder tenderness, no flank pain. Normal to palpation Musculoskeletal Extremities tone within normal limits. No LE edema. Neurological CN II - XII grossly intact. Extremity motor and sensation grossly intact. Skin Warm, dry and intact. No apparent lesions. Psychiatric Patient has good affect, is cooperative Objective Labs 11/15/24 06:21 11/15/24 06:21 Labs: Laboratory Results - last 24 hr 11/14/24 11/14/24 11/15/24 09:46 11:25 00:52 WBC 10.3 8.0 RBC 2.26 L 3.37 L Hgb 5.2 L* 8.6 L D Hct 17.9 L* 26.9 L MCV 79 L 80 MCH 23.0 L 25.5 MCHC 29.1 L 32.0 RDW Std Deviation 45.7 H 45.3 H Plt Count 664 H 584 H D Neut % (Auto) 76 63 Lymph % (Auto) 15 28 [place] % (Auto) 8 7 Eos % (Auto) 0 1 Baso % (Auto) 0 1 Neut # (Auto) 7.8 H 5.1 Lymph # (Auto) 1.5 2.3 [place] # (Auto) 0.8 0.6 Eos # (Auto) 0.0 0.0 Baso # (Auto) 0.0 0.0 Immature Gran # (Auto) 0.09 H 0.04 H Absolute Nucleated RBC 0.02 H 0.00 Immature Gran % 1 H 1 H Nucleated RBC % 0 0 Smear Path Review Sent to Pathologist PT 12.1 INR 1.1 APTT 27.8 Sodium 134 L Potassium 4.0 Chloride 105 Carbon Dioxide 22.2 Anion Gap 7 BUN 7 L Creatinine 0.8 Estim Creat Clear Calc 103.9 eGFR > 60 BUN/Creatinine Ratio 9 L Glucose 81 Calculated Osmolality 265 L Calcium 8.7 Corrected Calcium 9.0 Phosphorus Magnesium 1.8 Total Bilirubin 0.2 L AST 14 ALT 9 L Alkaline Phosphatase 125 H Troponin I < 0.002 Total Protein 6.6 Albumin 3.6 Globulin 3.0 Albumin/Globulin Ratio 1.2 Lipase 33 Ur Collection Type Clean Catch Urine Color Colorless A Urine Clarity Clear Urine pH 6.5 Ur Specific [place] 1.007 Urine Protein Negative Urine Glucose (UA) Negative Urine Ketones Negative Urine Blood Negative Urine Nitrite Negative Urine Bilirubin Negative Urine Urobilinogen (Auto) Negative Ur Leukocyte Esterase Negative Urine RBC < 1 Urine WBC 0 Ur Squamous Epith Cells 0 Urine Bacteria None Urine Opiates Screen Negative Urine Fentanyl Screen Negative Ur Barbiturates Screen Negative U Amphetamin/Meth Scrn Negative U Benzodiazepines Scrn Negative U Cocaine Metab Screen Positive A U Marijuana (THC) Screen Negative Blood Type O Positive Antibody Screen NEGATIVE Crossmatch See Detail Blood Bank Wristband ID Yes 11/15/24 06:21 WBC 6.2 RBC 3.47 L Hgb 8.8 L Hct 27.6 L MCV 80 MCH 25.4 MCHC 31.9 RDW Std Deviation 45.2 H Plt Count 568 H Neut % (Auto) 61 Lymph % (Auto) 30 [place] % (Auto) 7 Eos % (Auto) 1 Baso % (Auto) 1 Neut # (Auto) 3.8 Lymph # (Auto) 1.8 [place] # (Auto) 0.4 Eos # (Auto) 0.1 Baso # (Auto) 0.1 Immature Gran # (Auto) 0.03 H Absolute Nucleated RBC 0.00 Immature Gran % 1 H Nucleated RBC % 0 Smear Path Review PT 11.9 INR 1.1 APTT 28.6 Sodium 138 Potassium 4.5 D Chloride 105 Carbon Dioxide 23.7 Anion Gap 9 BUN 6 L Creatinine 0.8 Estim Creat Clear Calc 102.6 eGFR > 60 BUN/Creatinine Ratio 8 L Glucose 128 H D Calculated Osmolality 275 Calcium 9.0 Corrected Calcium 9.4 Phosphorus 4.7 Magnesium 2.2 Total Bilirubin 0.3 AST < 10 ALT < 7 L Alkaline Phosphatase 114 Troponin I Total Protein 6.3 Albumin 3.5 Globulin 2.8 Albumin/Globulin Ratio 1.3 Lipase Ur Collection Type Urine Color Urine Clarity Urine pH Ur Specific [place] Urine Protein Urine Glucose (UA) Urine Ketones Urine Blood Urine Nitrite Urine Bilirubin Urine Urobilinogen (Auto) Ur Leukocyte Esterase Urine RBC Urine WBC Ur Squamous Epith Cells Urine Bacteria Urine Opiates Screen Urine Fentanyl Screen Ur Barbiturates Screen U Amphetamin/Meth Scrn U Benzodiazepines Scrn U Cocaine Metab Screen U Marijuana (THC) Screen Blood Type Antibody Screen Crossmatch Blood Bank Wristband ID Quality Measures Quality Measures VTE prophylaxis (SCDs) Assessment & Plan Assessment Current Active Medications: Generic Name Dose Route Start Last Admin Trade Name Freq PRN Reason Stop Dose Admin Acetaminophen 650 mg 11/14/24 22:34 Acetaminophen 325 Mg Tablet PO 12/14/24 21:38 Q6H PRN Fever >100.4 or mild pain 1-3 Hydrocodone Bitart/Acetaminophen 1 tab 11/15/24 07:25 Hydrocodone/Apap 5/325 Tablet PO 11/19/24 21:38 Q4HR PRN PAIN SCALE 4-10(Mod-Sev Al Hydrox/Mg Hydrox/Simethicone 30 ml 11/14/24 21:39 Mg Hyd/Al Hyd/Haja (Maalox Reg) Susp 30 Ml Udc PO 12/14/24 21:38 Q6H PRN Indigestion Chlordiazepoxide HCl 25 mg 11/19/24 07:28 Chlordiazepoxide Hcl 25 Mg Capsule PO 11/20/24 07:27 Q12HR PRN CIWA >12 Folic Acid 1 mg 11/15/24 09:00 Folic Acid 1 Mg Tablet PO 11/20/24 08:59 BID SEVEN Octreotide Acetate 1,000 mcg/ 102 mls @ 5.1 mls/hr 11/14/24 21:43 11/14/24 22:02 Sodium Chloride IV 11/15/24 17:42 50 mcg/hr .Q20H ONE 5.1 mls/hr Administration Protocol 50 MCG/HR Octreotide Acetate 1,000 mcg/ 102 mls @ 5.1 mls/hr 11/15/24 17:42 Sodium Chloride IV 11/19/24 17:41 .Q20H SEVEN Protocol 50 MCG/HR Lorazepam 0.5 mg 11/15/24 07:27 Lorazepam 0.5 Mg Tablet PO 11/20/24 07:26 Q4HR PRN CIWA Score 2-6 Lorazepam 1 mg 11/15/24 07:27 Lorazepam 0.5 Mg Tablet PO 11/20/24 07:26 Q4HR PRN CIWA SCORE 7-11 Ondansetron HCl 4 mg 11/14/24 21:39 11/15/24 00:15 Ondansetron Inj 2 Mg/Ml Inj 2 Ml IV 12/14/24 21:38 4 mg Q6H PRN Administration NAUSEA OR VOMITING Protocol Pantoprazole Sodium 40 mg 11/15/24 09:00 Pantoprazole Inj 40 Mg Vial IVP 12/15/24 08:59 BID SEVEN Quetiapine Fumarate 25 mg 11/14/24 22:35 11/15/24 00:12 Quetiapine Fumarate 25 Mg Tablet PO 12/14/24 22:34 25 mg HS SEVEN Administration Sennosides 1 tab 11/14/24 21:39 Senna Tablet PO 12/14/24 21:38 QDAY PRN constipation Protocol Thiamine HCl 100 mg 11/15/24 09:00 Thiamine 100 Mg Tablet PO 11/20/24 08:59 BID SEVEN Plan This patient is a 44-year-old male with past medical history of hypertension, gout, chronic pancreatitis with pseudocyst, history of splenic laceration was transferred to [facility] twice however was managed conservatively only with pain medications presented to the ED on 11/14/2024 from PCP office with low hemoglobin. He complained of left abdominal discomfort x 2 weeks ago. He has been passing black stool from last 2 weeks. Patient is admitted for GI bleed workup. Acute blood loss anemia GI bleed for investigation, likely upper History of subcapsular hematoma currently stable History of splenic laceration in 2023 Gastritis Patient presented from PCP office with low hemoglobin of 5.2. He did complain of abdominal discomfort x 2 weeks ago with 1 of vomiting episode and black stool for last 2 weeks. On 08/09/2024, EGD showed esophagitis and gastritis pattern. Patient quit drinking alcohol a month ago. CT abdominal showed subcapsular hematoma smaller in size as compared to previous CT imagings and gastritis pattern. EKG showed sinus rhythm. On admission Hb 5.2, post 3 unit PRBC infusion improved to 8.8 In the ED, patient received 3 units of blood transfusion and Protonix 80 mg x 1. Plan: ? N.p.o. for now ? Continue Protonix 40 mg IV twice daily ? Continue octreotide infusion as per GI recommendations. - For EGD today ? GI, Dr. Orellana consulted and closely following the case. Appreciate recommendations History of chronic pancreatitis, stable History of alcohol abuse Cocaine use Previously patient had pancreatic pseudocyst. CT abdomen pelvis from this admission showed no signs of cirrhosis. Patient stated that his last drink was 1 month ago, however upon further investigation he admitted to having an occasional beer. On admission U tox positive for cocaine. Plan: ? CIWA protocol initiated ? Thiamine 100 Mg p.o. twice daily ? Folic acid 1 Mg p.o. twice daily Primary hypertension Home medication lisinopril 10 Mg p.o. twice daily Plan: ? Antihypertensives currently on hold due to GI bleed History of gout Patient takes allopurinol and prednisone as needed when he has a flare. Insomnia Home medication quetiapine 25 Mg p.o. at bedtime as needed for sleep Plan: ? Continue quetiapine 25 Mg p.o. at bedtime as needed for insomnia History of onychomycosis Patient completed course of fluconazole for 3 months. Health maintenance: Disposition: Pending EGD. Octreotide infusion. Pending GI recs. Diet: N.p.o. Lines: pIVs GI Prophylaxis: Pantoprazole 40 Mg IV twice daily Thrombo Prophylaxis: SCDs Code status: FULL CODE Plan of care discussed with Attending Dr. Griggs and PGY2 Dr. Senha Javed MD PGY 1 Attending Provider Attestation/Addendum I, Myriam Griggs DO, attest that I was physically present for the mcintosh portions of the service and evaluated the patient with the resident and I reviewed and discussed the case with the resident and agree with the resident's findings and plans of care as documented above Patient seen and evaluated this AM. Patient states that he has lost about 35 lbs due to frequent hospitalizations and loss of appetite. He reports occasional abdominal discomfort since the splenic laceration. He states he has not consumed alcohol for over a month and has made efforts to stay abstinent. However, he states that he often goes back to drinking after some time. Patient was also not upfront about his drug use. He states that he has had occasional black stool, but denied BRBPR. He denies any lightheadedness, chest pain or shortness of breath otherwise. He is currently NPO and pending EGD today. Hgb now 8.8 s/p 3 units of PRBCs. Will f/u with EGD results and GI recommendations
--- NOTE | 2024-11-15 10:56 | PC.SS ---
SS met with patient regarding his d/c plan.? Pt is alert/oriented.? Pt was admitted for GI Bleed, Subcaps Hematoma.? Pt confirmed demographic and contact information is correct on facesheet.? Pt resides with and kids.? Pt ambulates independently without assistance or DME.? Pt is ok with all ADLs.? Pt named his , Yamileth Khalil medical decision maker if he is unable.? Patient?s choice is to return home upon d/c.? Pt does not have an advance directive, SS offered, and pt declined.? Pt states not diabetic and is not on dialysis.? Pt states he followed up with PCP on . D/C plan:? Return home Next of Kin:? Yamileth Khalil, , phone# [phone] PCP:? [facility] in [place] Address:? Correct on facesheet
--- NOTE | 2024-11-15 14:26 | PD.IMCONS ---
HPI Data of Consult Requesting Physician: Juan Pablo Jiménez MD Primary Care Provider: Physician No Primary/Family Consult Narrative Reason for consult: H/H 5.2/17.9 History of present illness: Late entry for the note Patient evaluated at the request of ER physician for a hemoglobin of 5.2 and hematocrit of 17.9 with grossly Hemoccult positive stool and dark stools Patient was sent by the PCP to the emergency room because he was dizzy fatigued and had a low hemoglobin as an outpatient I know this patient from before and he underwent on 08/09/2020 for upper endoscopy which showed esophagitis and gastritis He has a previous history of polysubstance abuse as well as alcohol abuse He was transferred to [facility] because of the subthalamic capsule bleed patient was managed conservatively and discharged At my request CT scan of the abdomen pelvis was done by ER physician and it showed that the subsplenic hematoma subcapsular hematoma of the spleen is smaller in size currently at 6.5 x 3.8 cm Patient was subsequently admitted cc:: cc: Juan Pablo Jiménez MD Review of Systems Review of Systems Systems Reviewed: All systems reviewed, normal except as documented Past Medical History Surgical History OTHER SURGICAL HX: Essential hypertension Gouty arthritis Chronic pain syndrome on hydrocodone Meds Home Medications and Allergies Home Medications ?Medication ?Instructions ?Recorded ?Confirmed ?Type lisinopril 20 mg tablet 10 mg PO BID 08/10/23 11/15/24 History quetiapine 25 mg tablet 25 mg PO PRN PRN Sleep 04/14/24 11/15/24 History allopurinol 100 mg tablet 100 mg PO QDAY 06/27/24 11/15/24 History ergocalciferol (vitamin D2) 1,250 1,250 mcg PO QWEEK 06/27/24 11/15/24 History mcg (50,000 unit) capsule hydrocodone 10 mg-acetaminophen 1 tab PO BID PRN Pain 06/27/24 11/15/24 History 325 mg tablet prednisone 20 mg tablet 20 mg PO QDAY 06/27/24 11/15/24 History omeprazole 20 mg capsule,delayed 20 mg PO QDAY 08/08/24 11/15/24 History release Allergies Allergy/AdvReac Type Severity Reaction Status Date / Time No Known Allergies Allergy Verified 11/14/24 08:30 Exam Vital Signs Temp Pulse Resp BP Pulse Ox O2 Del Method O2 Flow Rate 97.3 F 79 16 122/79 97 Room Air 100 11/15/24 11:34 11/15/24 12:00 11/15/24 11:59 11/15/24 11:34 11/15/24 11:34 11/15/24 11:34 11/14/24 21:58 Constitutional Comments: Alert oriented Routine Respiratory Exam Comments: Normal to auscultation Routine Abdominal Exam Comments: Soft nontender Results Labs 11/15/24 06:21 11/15/24 06:21 Labs: Short CBC 11/15/24 11/15/24 Range/Units 00:52 06:21 WBC 8.0 6.2 (3.8-10.6) Thou/mm3 Hgb 8.6 L D 8.8 L (13.5-16.0) g/dL Hct 26.9 L 27.6 L (41.0-53.0) % Plt Count 584 H D 568 H (140-440) Thou/mm3 BMP 11/15/24 06:21 Sodium 138 Potassium 4.5 D Chloride 105 Carbon Dioxide 23.7 BUN 6 L Creatinine 0.8 Glucose 128 H D Calcium 9.0 Liver Function 11/15/24 Range/Units 06:21 Total Bilirubin 0.3 (0.3-1.2) mg/dL AST < 10 (0-34) U/L ALT < 7 L (10-49) U/L Alkaline Phosphatase 114 (46-116) U/L Albumin 3.5 (3.5-5.0) gm/dL Assessment and Plan Additional Assessment & Plan Additional Plan: # Acute posthemorrhagic anemia with occult GI bleeding presenting hemoglobin 5.2 g and hematocrit 17.9 Plan Case discussed with the internal medicine team and the ER physician bilingual administrative assistant Agree with the blood transfusion IV Protonix and octreotide Consent obtained for fiberoptic esophagogastroduodenoscopy with possible therapeutic intervention under intravenous moderate sedation of this procedure scheduled Indications endoscopy is negative we will consider doing a fiberoptic endoscopy prior to discharge # Subcapsular splenic hematoma decreasing in size of the recent imaging study # Essential hypertension # Chronic pain syndrome # Polysubstance abuse as well as alcohol abuse in the past Thank you very much for the opportunity to participate in the care of this patient
--- NOTE | 2024-11-15 17:20 | SUR.PHASEI ---
Arrived to recovery bay [facility] via [facility]. Report received from Yvonne ADAMS. Resting with eyes open. No c/o pain or discomfort. Responding to commands appropriately.
--- NOTE | 2024-11-15 17:50 | SUR.PHASEI ---
Taken to room 351 via gurney by Bethany ADAMS. Resting with eyes open and tolerating ice chips PO. No c/o pain or discomfort. Conversing with staff and responding to questions and commands apporpriately.
[2024-11-15] MEDS: NA SU/NAHCO3/KC/PEG (Golytely) 4,000 ML BTL 4000 ML PO (18:38)
[2024-11-15] MEDS: FOLIC ACID 1 MG TABLET PO (20:03)
[2024-11-15] MEDS: THIAMINE 100 MG TABLET PO (20:03)
[2024-11-15] MEDS: OCTREOTIDE ACET INJ 1,000 MCG in SODIUM CHLORIDE 0.9% 100 ML 5.1 MCG IV (20:03)
[2024-11-16] VITALS (19 sets, daily range): BP systolic 114–172; BP diastolic 76–112; PULSE 65–88; RESP 13–98; TEMP 36.1–37.1; O2SAT 93–100; BMI 21.9
[2024-11-16] MEDS: PANTOPRAZOLE INJ 40 MG VIAL IVP ×2 (09:17→21:51)
[2024-11-16] MEDS: FOLIC ACID 1 MG TABLET PO ×2 (09:18→21:51)
[2024-11-16] MEDS: THIAMINE 100 MG TABLET PO ×2 (09:18→21:51)
[2024-11-16 10:16] LABS: Basophils % (Auto) 0 % (0-2.5); Eosinophils # (Auto) 0.1 Thou/mm3 (0.0-0.5); Eosinophils % (Auto) 1 % (0-10); Hematocrit 27.8 % (41.0-53.0); Immature Granulocytes % (Auto) 0 % (0-0); Immature Granulocytes Auto 0.03 Thou/mm3 (0.00-0.00); Lymphocytes # (Auto) 1.8 Thou/mm3 (1.0-4.8); Lymphocytes % (Auto) 25 % (10-50); Mean Corpuscular HGB Conc 30.6 g/dl (31.0-37.0); Mean Corpuscular Hemoglobin 25.3 pg (25.0-35.0); Mean Corpuscular Volume 83 fL (80-100); Monocytes # (Auto) 0.4 Thou/mm3 (0.0-0.8); Monocytes % (Auto) 6 % (0-12); Neutrophils # (Auto) 4.7 Thou/mm3 (1.8-7.7); Neutrophils % (Auto) 67 % (37-80); Nucleated Red Blood Cell % 0 /100 WBC (0); Platelet Count 535 Thou/mm3 (140-440); RDW Standard Deviation 47.5 fL (35.1-43.9); Red Blood Count 3.36 Miln/mm3 (4.50-5.90)
[2024-11-16 10:19] LABS: Hemoglobin 8.5 g/dL (13.5-16.0)
--- NOTE | 2024-11-16 10:33 | ESPR_ITS ---
<Statement entered by Mata Pelaez MD - 11/17/24 07:11> Agree with plan and examination finding on the note below. Patient seen and examined at bedside today. Labs and imaging reviewed. Patient care discussed with my attending Dr. Griggs and co-resident Dr. Javed. Documentation for date of: 11/16/24 Subjective Subjective Interval history: Patient was seen and examined at bedside this AM. No acute exents overnight. Patient tolerating clear liquid diet, adequate urine output and mentation is at baseline. Patient endorses improvement of epigastric pain. EGD completed on 11/15/2024 findings include: Grade 1 varices in lower third of esophagus. 1 superficial esophageal ulcer in lower third of esophagus. Diffuse severe inflammation with hemorrhage characterized by erythema in the entire stomach. Patient completed GoLytely bowel prep and awaiting colonoscopy by environmental compliance officer, Dr. Orellana at 6 PM. Exam Vital Signs Temp Pulse Resp BP Pulse Ox O2 Del Method O2 Flow Rate 97.0 F 82 20 158/93 H 100 Room Air 3 11/16/24 08:00 11/16/24 08:00 11/16/24 08:00 11/16/24 08:00 11/16/24 08:00 11/16/24 08:00 11/15/24 20:00 Narrative Exam Constitutional Alert, oriented x 3 and comfortable. Young male, thin, pale and moist mucous membranes HEENT Vision grossly intact. Patent nares. Trachea midline Respiratory Chest normal on inspection and clear auscultation bilaterally Cardiovascular S1 and S2 audible, RRR. No murmurs carotid bruit. No gross JVD. Abdominal Soft and non- tender to palpation in all quadrants. Lower abdominal striae present. Bowel sounds present Genitourinary No bladder tenderness, no flank pain. Normal to palpation Musculoskeletal Extremities tone within normal limits. No LE edema. Neurological CN II - XII grossly intact. Extremity motor and sensation grossly intact. Skin Warm, dry and intact. No apparent lesions. Psychiatric Patient has good affect, is cooperative Objective Labs 11/16/24 09:44 11/16/24 09:44 Labs: Laboratory Results - last 24 hr 11/16/24 09:44 WBC 7.0 RBC 3.36 L Hgb 8.5 L Hct 27.8 L MCV 83 MCH 25.3 MCHC 30.6 L RDW Std Deviation 47.5 H Plt Count 535 H D Neut % (Auto) 67 Lymph % (Auto) 25 [place] % (Auto) 6 Eos % (Auto) 1 Baso % (Auto) 0 Neut # (Auto) 4.7 Lymph # (Auto) 1.8 [place] # (Auto) 0.4 Eos # (Auto) 0.1 Baso # (Auto) 0.0 Immature Gran # (Auto) 0.03 H Absolute Nucleated RBC 0.00 Immature Gran % 0 Nucleated RBC % 0 Quality Measures Quality Measures VTE prophylaxis (SCDs) Assessment & Plan Assessment Current Active Medications: Generic Name Dose Route Start Last Admin Trade Name Freq PRN Reason Stop Dose Admin Acetaminophen 650 mg 11/14/24 22:34 Acetaminophen 325 Mg Tablet PO 12/14/24 21:38 Q6H PRN Fever >100.4 or mild pain 1-3 Hydrocodone Bitart/Acetaminophen 1 tab 11/15/24 07:25 11/15/24 20:04 Hydrocodone/Apap 5/325 Tablet PO 11/19/24 21:38 1 tab Q4HR PRN Administration PAIN SCALE 4-10(Mod-Sev Al Hydrox/Mg Hydrox/Simethicone 30 ml 11/14/24 21:39 Mg Hyd/Al Hyd/Haja (Maalox Reg) Susp 30 Ml Udc PO 12/14/24 21:38 Q6H PRN Indigestion Chlordiazepoxide HCl 25 mg 11/19/24 07:28 Chlordiazepoxide Hcl 25 Mg Capsule PO 11/20/24 07:27 Q12HR PRN CIWA >12 Folic Acid 1 mg 11/15/24 09:00 11/16/24 09:18 Folic Acid 1 Mg Tablet PO 11/20/24 08:59 1 mg BID SEVEN Administration Octreotide Acetate 1,000 mcg/ 102 mls @ 5.1 mls/hr 11/15/24 17:42 11/15/24 20:03 Sodium Chloride IV 11/19/24 17:41 50 mcg/hr .Q20H SEVEN 5.1 mls/hr Administration Protocol 50 MCG/HR Lorazepam 0.5 mg 11/15/24 07:27 Lorazepam 0.5 Mg Tablet PO 11/20/24 07:26 Q4HR PRN CIWA Score 2-6 Lorazepam 1 mg 11/15/24 07:27 Lorazepam 0.5 Mg Tablet PO 11/20/24 07:26 Q4HR PRN CIWA SCORE 7-11 Ondansetron HCl 4 mg 11/14/24 21:39 11/15/24 00:15 Ondansetron Inj 2 Mg/Ml Inj 2 Ml IV 12/14/24 21:38 4 mg Q6H PRN Administration NAUSEA OR VOMITING Protocol Pantoprazole Sodium 40 mg 11/15/24 09:00 11/16/24 09:17 Pantoprazole Inj 40 Mg Vial IVP 12/15/24 08:59 40 mg BID SEVEN Administration Quetiapine Fumarate 25 mg 11/15/24 11:47 11/15/24 20:04 Quetiapine Fumarate 25 Mg Tablet PO 12/14/24 22:34 25 mg HS PRN Administration Insomnia Sennosides 1 tab 11/14/24 21:39 Senna Tablet PO 12/14/24 21:38 QDAY PRN constipation Protocol Thiamine HCl 100 mg 11/15/24 09:00 11/16/24 09:18 Thiamine 100 Mg Tablet PO 11/20/24 08:59 100 mg BID SEVEN Administration Plan This patient is a 44-year-old male with past medical history of hypertension, gout, chronic pancreatitis with pseudocyst, history of splenic laceration was transferred to [facility] twice however was managed conservatively only with pain medications presented to the ED on 11/14/2024 from PCP office with low hemoglobin. He complained of left abdominal discomfort x 2 weeks ago. He has been passing black stool from last 2 weeks. Patient is admitted for GI bleed workup. Acute blood loss anemia - resolving GI bleed for investigation, likely upper History of subcapsular hematoma currently stable History of splenic laceration in 2023 Gastritis Patient presented from PCP office with low hemoglobin of 5.2. He did complain of abdominal discomfort x 2 weeks ago with 1 of vomiting episode and black stool for last 2 weeks. On 08/09/2024, EGD showed esophagitis and gastritis pattern. Patient quit drinking alcohol a month ago. In the ED, patient received 3 units of blood transfusion and Protonix [address] abdominal showed subcapsular hematoma smaller in size as compared to previous CT imagings and gastritis pattern. EKG showed sinus rhythm. EGD completed on 11/15/2024 findings include: Grade 1 varices in lower third of esophagus. 1 superficial esophageal ulcer in lower third of esophagus. Diffuse severe inflammation with hemorrhage characterized by erythema in the entire stomach. On admission Hb 5.2, post 3 unit PRBC infusion improved to 8.8 Plan: ? Clear liquid diet ? Continue Protonix 40 mg IV twice daily ? Continue octreotide infusion as per GI recommendations. - For colonoscopy today. ? GI, Dr. Orellana consulted and closely following the case. Appreciate recommendations History of chronic pancreatitis, stable History of alcohol abuse Cocaine use Previously patient had pancreatic pseudocyst. CT abdomen pelvis from this admission showed no signs of cirrhosis. Patient stated that his last drink was 1 month ago, however upon further investigation he admitted to having an occasional beer. On admission U tox positive for cocaine. Plan: ? CIWA protocol ? Thiamine 100 Mg p.o. twice daily ? Folic acid 1 Mg p.o. twice daily Primary hypertension Home medication lisinopril 10 Mg p.o. twice daily Today BP 158/93 Plan: ? Started on lisinopril 10 Mg p.o. daily History of gout Patient takes allopurinol and prednisone as needed when he has a flare. Insomnia Home medication quetiapine 25 Mg p.o. at bedtime as needed for sleep Plan: ? Continue quetiapine 25 Mg p.o. at bedtime as needed for insomnia History of onychomycosis Patient completed course of fluconazole for 3 months. Health maintenance: Disposition: Pending colonoscopy. Octreotide infusion. Diet: Clear liquid diet Lines: pIVs GI Prophylaxis: Pantoprazole 40 Mg IV twice daily Thrombo Prophylaxis: SCDs Code status: FULL CODE Plan of care discussed with Attending Dr. Griggs and PGY3 Dr. Benigno Javed MD PGY 1 Attending Provider Attestation/Addendum Loren, Myriam Griggs, DO, attest that I was physically present for the mcintosh portions of the service and evaluated the patient with the resident and I reviewed and discussed the case with the resident and agree with the resident's findings and plans of care as documented above Patient seen and evaluated this AM. He states he is doing well and has no active complaints. He denies any abdominal pain or further GI bleeding. Patient completed his golytely prep last night and is ready for colonoscopy. EGD from last night revealed grade 1 esophageal varices, esophageal ulcer and gastritis without hemorrhage. Will f/u with colonoscopy results. Patient is otherwise hemodynamically stable. h/H stable.
[2024-11-16 10:49] LABS: Alanine Aminotransferase < 7 U/L (10-49); Albumin, Serum 3.3 gm/dL (3.5-5.0); Albumin/Globulin Ratio 1.2 (1.2-2.2); Alkaline Phosphatase 108 U/L (46-116); Anion Gap 8 (7-16); Aspartate Amino Transferase < 8 U/L (0-34); BUN/Creatinine Ratio 8 Ratio (12-20); Bilirubin,Total 0.3 mg/dL (0.3-1.2); Blood Urea Nitrogen 6 mg/dL (9-23); Calcium 8.4 mg/dL (8.3-10.6); Carbon Dioxide 24.3 mMol/L (20.0-31.0); Chloride 104 mMol/L (98-107); Creatinine (Component) 0.8 mg/dL (0.6-1.3); Estimated Creatinine Clearance 105.8 mL/min (>60); Globulin 2.7 gm/dL (2.3-3.5); Glucose 129 mg/dL (74-106); Magnesium 1.7 mg/dL (1.6-2.6); Osmolality,Calculated 271 (275-295); Phosphorous 3.8 mg/dL (2.4-5.1); Potassium 4.5 mMol/L (3.4-5.1); Sodium 136 mMol/L (136-145); eGFR > 60 See Note
[2024-11-16] MEDS: Lisinopril 2.5 MG TABLET 10 MG PO ×2 (11:31→16:25)
[2024-11-16] MEDS: NA SU/NAHCO3/KC/PEG (Golytely) 4,000 ML BTL 4000 ML PO (12:57)
[2024-11-16] MEDS: OCTREOTIDE ACET INJ 1,000 MCG in SODIUM CHLORIDE 0.9% 100 ML 5.1 MCG IV (13:07)
[2024-11-16] MEDS: HYDROcodone/APAP 5/325 TABLET 1 TAB PO ×2 (13:25→21:50)
--- NOTE | 2024-11-16 19:00 | PC.NURSE ---
PATIENT RETURNED FROM COLONOSCOPY PROCEDURE NO COMPLAINT OF PAIN, VS 134/86 HR79, GETTING COMFORTABLE IN BED, ABOUT TO EAT LATE DINNER TRAY, REPORT GIVEN TO NILS ADAMS
[2024-11-16] MEDS: QUEtiapine FUMARATE 25 MG TABLET PO (22:06)
[2024-11-17] VITALS (9 sets, daily range): BP systolic 105–164; BP diastolic 74–99; PULSE 67–97; RESP 11–99; TEMP 36.1–37.3; O2SAT 93–100; BMI 22.2
[2024-11-17 03:59] LABS: Hepatitis A Antibody IgM Non Reactive (Non React); Hepatitis B Core Antibody IgM Non Reactive (Non React); Hepatitis B Surface Antigen Non Reactive (Non React); Hepatitis C Antibody Non Reactive (Non React)
[2024-11-17 06:11] LABS: Basophils % (Auto) 0 % (0-2.5); Eosinophils # (Auto) 0.1 Thou/mm3 (0.0-0.5); Eosinophils % (Auto) 1 % (0-10); Hematocrit 26.9 % (41.0-53.0); Immature Granulocytes % (Auto) 0 % (0-0); Immature Granulocytes Auto 0.03 Thou/mm3 (0.00-0.00); Lymphocytes # (Auto) 1.6 Thou/mm3 (1.0-4.8); Lymphocytes % (Auto) 25 % (10-50); Mean Corpuscular HGB Conc 30.9 g/dl (31.0-37.0); Mean Corpuscular Hemoglobin 25.1 pg (25.0-35.0); Mean Corpuscular Volume 81 fL (80-100); Monocytes # (Auto) 0.6 Thou/mm3 (0.0-0.8); Monocytes % (Auto) 9 % (0-12); Neutrophils # (Auto) 4.3 Thou/mm3 (1.8-7.7); Neutrophils % (Auto) 65 % (37-80); Nucleated Red Blood Cell % 0 /100 WBC (0); Platelet Count 495 Thou/mm3 (140-440); RDW Standard Deviation 45.4 fL (35.1-43.9); Red Blood Count 3.31 Miln/mm3 (4.50-5.90); White Blood Count 6.7 Thou/mm3 (3.8-10.6)
[2024-11-17 06:19] LABS: Hemoglobin 8.3 g/dL (13.5-16.0)
[2024-11-17 06:37] LABS: Alanine Aminotransferase < 7 U/L (10-49); Albumin, Serum 3.2 gm/dL (3.5-5.0); Albumin/Globulin Ratio 1.2 (1.2-2.2); Alkaline Phosphatase 100 U/L (46-116); Anion Gap 8 (7-16); Aspartate Amino Transferase < 8 U/L (0-34); BUN/Creatinine Ratio 13 Ratio (12-20); Bilirubin,Total 0.2 mg/dL (0.3-1.2); Blood Urea Nitrogen 10 mg/dL (9-23); Calcium 8.4 mg/dL (8.3-10.6); Carbon Dioxide 24.3 mMol/L (20.0-31.0); Chloride 106 mMol/L (98-107); Creatinine (Component) 0.8 mg/dL (0.6-1.3); Estimated Creatinine Clearance 106.3 mL/min (>60); Globulin 2.6 gm/dL (2.3-3.5); Glucose 150 mg/dL (74-106); Magnesium 1.6 mg/dL (1.6-2.6); Osmolality,Calculated 277 (275-295); Phosphorous 4.1 mg/dL (2.4-5.1); Potassium 4.5 mMol/L (3.4-5.1); Sodium 138 mMol/L (136-145); Total Protein 5.8 gm/dL (5.7-8.2); eGFR > 60 See Note
[2024-11-17] MEDS: PANTOPRAZOLE INJ 40 MG VIAL IVP ×2 (08:39→20:40)
[2024-11-17] MEDS: Lisinopril 2.5 MG TABLET 10 MG PO ×2 (08:39→20:39)
[2024-11-17] MEDS: FOLIC ACID 1 MG TABLET PO ×2 (08:40→20:39)
[2024-11-17] MEDS: THIAMINE 100 MG TABLET PO ×2 (08:40→20:40)
[2024-11-17] MEDS: HYDROcodone/APAP 5/325 TABLET 1 TAB PO ×2 (08:46→19:22)
--- NOTE | 2024-11-17 09:18 | ESPR_ITS ---
<Statement entered by Mata Pleaez MD - 11/18/24 09:05> Agree with plan and examination finding on the note below. Patient seen and examined at bedside today. Labs and imaging reviewed. Patient care discussed with my attending Dr. Griggs and co-resident Dr. Javed. Documentation for date of: 11/17/24 Subjective Subjective Interval history: Patient was seen and examined at bedside this AM. No acute exents overnight. Patient tolerating diet, adequate urine output and mentation is at baseline. Patient endorses improvement of epigastric pain. Will increase lisinopril to 10 Mg p.o. twice daily, his home dose. Colonoscopy completed on 11/16/2024 findings include: Hemorrhoids on perianal exam. A few small mouth diverticula in sigmoid and descending colon. No evidence of diverticular bleed. Recommend outpatient capsule endoscopy. Day 3 of octreotide infusion to complete 5 days on 11/19/2024 as per GI recommendations. Exam Vital Signs Temp Pulse Resp BP Pulse Ox O2 Del Method O2 Flow Rate 97.0 F 74 12 129/83 100 Room Air 3 11/17/24 08:00 11/17/24 08:39 11/17/24 08:00 11/17/24 08:39 11/17/24 08:00 11/17/24 08:00 11/16/24 20:00 Narrative Exam Constitutional Alert, oriented x 3 and comfortable. Young male, thin, pale and moist mucous membranes HEENT Vision grossly intact. Patent nares. Trachea midline Respiratory Chest normal on inspection and clear auscultation bilaterally Cardiovascular S1 and S2 audible, RRR. No murmurs carotid bruit. No gross JVD. Abdominal Soft and tender to palpation in epigastrium. Lower abdominal striae present. Bowel sounds present Genitourinary No bladder tenderness, no flank pain. Normal to palpation Musculoskeletal Extremities tone within normal limits. No LE edema. Neurological CN II - XII grossly intact. Extremity motor and sensation grossly intact. Skin Warm, dry and intact. No apparent lesions. Psychiatric Patient has good affect, is cooperative Objective Labs 11/17/24 05:48 11/17/24 05:48 Labs: Laboratory Results - last 24 hr 11/15/24 11/16/24 11/17/24 06:21 09:44 05:48 WBC 7.0 6.7 RBC 3.36 L 3.31 L Hgb 8.5 L 8.3 L Hct 27.8 L 26.9 L MCV 83 81 MCH 25.3 25.1 MCHC 30.6 L 30.9 L RDW Std Deviation 47.5 H 45.4 H Plt Count 535 H D 495 H D Neut % (Auto) 67 65 Lymph % (Auto) 25 25 [place] % (Auto) 6 9 Eos % (Auto) 1 1 Baso % (Auto) 0 0 Neut # (Auto) 4.7 4.3 Lymph # (Auto) 1.8 1.6 [place] # (Auto) 0.4 0.6 Eos # (Auto) 0.1 0.1 Baso # (Auto) 0.0 0.0 Immature Gran # (Auto) 0.03 H 0.03 H Absolute Nucleated RBC 0.00 0.00 Immature Gran % 0 0 Nucleated RBC % 0 0 Sodium 136 138 Potassium 4.5 4.5 Chloride 104 106 Carbon Dioxide 24.3 24.3 Anion Gap 8 8 BUN 6 L 10 Creatinine 0.8 0.8 Estim Creat Clear Calc 105.8 106.3 eGFR > 60 > 60 BUN/Creatinine Ratio 8 L 13 Glucose 129 H 150 H Calculated Osmolality 271 L 277 Calcium 8.4 8.4 Corrected Calcium 9.0 9.0 Phosphorus 3.8 4.1 Magnesium 1.7 1.6 Total Bilirubin 0.3 0.2 L AST < 8 < 8 ALT < 7 L < 7 L Alkaline Phosphatase 108 100 Total Protein 6.0 5.8 Albumin 3.3 L 3.2 L Globulin 2.7 2.6 Albumin/Globulin Ratio 1.2 1.2 Hepatitis A IgM Ab Non Reactive Hep Bs Antigen Non Reactive Hep B Core IgM Ab Non Reactive Hepatitis C Antibody Non Reactive Quality Measures Quality Measures VTE prophylaxis (SCDs) Assessment & Plan Assessment Current Active Medications: Generic Name Dose Route Start Last Admin Trade Name Freq PRN Reason Stop Dose Admin Acetaminophen 650 mg 11/14/24 22:34 Acetaminophen 325 Mg Tablet PO 12/14/24 21:38 Q6H PRN Fever >100.4 or mild pain 1-3 Hydrocodone Bitart/Acetaminophen 1 tab 11/15/24 07:25 11/17/24 08:46 Hydrocodone/Apap 5/325 Tablet PO 11/19/24 21:38 1 tab Q4HR PRN Administration PAIN SCALE 4-10(Mod-Sev Al Hydrox/Mg Hydrox/Simethicone 30 ml 11/14/24 21:39 Mg Hyd/Al Hyd/Haja (Maalox Reg) Susp 30 Ml Udc PO 12/14/24 21:38 Q6H PRN Indigestion Chlordiazepoxide HCl 25 mg 11/19/24 07:28 Chlordiazepoxide Hcl 25 Mg Capsule PO 11/20/24 07:27 Q12HR PRN CIWA >12 Folic Acid 1 mg 11/15/24 09:00 11/17/24 08:40 Folic Acid 1 Mg Tablet PO 11/20/24 08:59 1 mg BID SEVEN Administration Octreotide Acetate 1,000 mcg/ 102 mls @ 5.1 mls/hr 11/16/24 12:00 11/16/24 13:07 Sodium Chloride IV 11/19/24 17:41 50 mcg/hr .Q20H SEVEN 5.1 mls/hr Administration Protocol 50 MCG/HR Lisinopril 10 mg 11/17/24 09:00 11/17/24 08:39 Lisinopril 2.5 Mg Tablet PO 12/17/24 08:59 10 mg BID SEVEN Administration Protocol Lorazepam 0.5 mg 11/15/24 07:27 Lorazepam 0.5 Mg Tablet PO 11/20/24 07:26 Q4HR PRN CIWA Score 2-6 Lorazepam 1 mg 11/15/24 07:27 Lorazepam 0.5 Mg Tablet PO 11/20/24 07:26 Q4HR PRN CIWA SCORE 7-11 Ondansetron HCl 4 mg 11/14/24 21:39 11/15/24 00:15 Ondansetron Inj 2 Mg/Ml Inj 2 Ml IV 12/14/24 21:38 4 mg Q6H PRN Administration NAUSEA OR VOMITING Protocol Pantoprazole Sodium 40 mg 11/15/24 09:00 11/17/24 08:39 Pantoprazole Inj 40 Mg Vial IVP 12/15/24 08:59 40 mg BID SEVEN Administration Quetiapine Fumarate 25 mg 11/15/24 11:47 11/16/24 22:06 Quetiapine Fumarate 25 Mg Tablet PO 12/14/24 22:34 25 mg HS PRN Administration Insomnia Sennosides 1 tab 11/14/24 21:39 Senna Tablet PO 12/14/24 21:38 QDAY PRN constipation Protocol Thiamine HCl 100 mg 11/15/24 09:00 11/17/24 08:40 Thiamine 100 Mg Tablet PO 11/20/24 08:59 100 mg BID SEVEN Administration Plan This patient is a 44-year-old male with past medical history of hypertension, gout, chronic pancreatitis with pseudocyst, history of splenic laceration was transferred to [facility] twice however was managed conservatively only with pain medications presented to the ED on 11/14/2024 from PCP office with low hemoglobin. He complained of left abdominal discomfort x 2 weeks ago. He has been passing black stool from last 2 weeks. Patient is admitted for GI bleed workup. Acute blood loss anemia - resolving GI bleed for investigation History of subcapsular hematoma currently stable History of splenic laceration in 2023 Gastritis Patient presented from PCP office with low hemoglobin of 5.2. He did complain of abdominal discomfort x 2 weeks ago with 1 of vomiting episode and black stool for last 2 weeks. On 08/09/2024, EGD showed esophagitis and gastritis pattern. Patient quit drinking alcohol a month ago. In the ED, patient received 3 units of blood transfusion and Protonix [address] abdominal showed subcapsular hematoma smaller in size as compared to previous CT imagings and gastritis pattern. EKG showed sinus rhythm. EGD completed on 11/15/2024 findings include: Grade 1 varices in lower third of esophagus. 1 superficial esophageal ulcer in lower third of esophagus. Diffuse severe inflammation with hemorrhage characterized by erythema in the entire stomach. Colonoscopy completed on 11/16/2024 findings include: Hemorrhoids on perianal exam. A few small mouth diverticula in sigmoid and descending colon. No evidence of diverticular bleed. Recommend outpatient capsule endoscopy. On admission Hb 5.2, post 3 unit PRBC infusion improved to 8.8 Currently Hb 8.3 Plan: ? Sodium restricted diet ? Continue Protonix 40 mg IV twice daily ? Day 3 of octreotide infusion to complete 5 days on 11/19/2024 as per GI recommendations. ? GI, Dr. Orellana consulted and closely following the case. Appreciate recommendations History of chronic pancreatitis, stable History of alcohol abuse Cocaine use Previously patient had pancreatic pseudocyst. CT abdomen pelvis from this admission showed no signs of cirrhosis. Patient stated that his last drink was 1 month ago, however upon further investigation he admitted to having an occasional beer. On admission U tox positive for cocaine. Plan: ? CIWA protocol ? Thiamine 100 Mg p.o. twice daily ? Folic acid 1 Mg p.o. twice daily Primary hypertension Home medication lisinopril 10 Mg p.o. twice daily Today BP 124/74 Plan: ? Increase lisinopril to 10 Mg p.o. twice daily, home dose. History of gout Patient takes allopurinol and prednisone as needed when he has a flare. Insomnia Home medication quetiapine 25 Mg p.o. at bedtime as needed for sleep Plan: ? Continue quetiapine 25 Mg p.o. at bedtime as needed for insomnia History of onychomycosis Patient completed course of fluconazole for 3 months. Health maintenance: Disposition: To complete 5 days of octreotide infusion on 11/19/2024. Diet: Sodium restricted diet Lines: pIVs GI Prophylaxis: Pantoprazole 40 Mg IV twice daily Thrombo Prophylaxis: SCDs Code status: FULL CODE Plan of care discussed with Attending Dr. Griggs and PGY3 Dr. Benigno Javed MD PGY 1 Attending Provider Attestation/Addendum I, Myriam Griggs, DO, attest that I was physically present for the mcintosh portions of the service and evaluated the patient with the resident and I reviewed and discussed the case with the resident and agree with the resident's findings and plans of care as documented above Patient seen and evaluated this AM. He states that he is doing well. Colonoscopy showed evidence of hemorrhoids. H/H has beens table. Patient remains hemodynamically stable. Will need octreotide x 5 days due to varices until 11/19/24. Will downgrade to med/surg at this time. Patient reports some epigastric pain, but tolerating PO intake without issue.
[2024-11-17] MEDS: OCTREOTIDE ACET INJ 1,000 MCG in SODIUM CHLORIDE 0.9% 100 ML 5.1 MCG IV (14:18)
--- NOTE | 2024-11-17 17:18 | PC.SS ---
Rounding Note: Plan is to d/c the patient within 1-2 days.
--- NOTE | 2024-11-17 20:13 | PD.IMPROG ---
Documentation for date of: 11/17/24 Subjective Subjective Interval history: Patient evaluated hemoglobin hematocrit 10.0 and 29.6 Colonoscopy showed 2+ internal hemorrhoids diverticulosis otherwise normal colonoscopy to cecum Upper endoscopy showed 1 esophageal varices distal esophageal ulcer and gastritis Okay to continue current management and hopefully discharge planning for tomorrow Exam Vital Signs Temp Pulse Resp BP Pulse Ox O2 Del Method O2 Flow Rate 98.1 F 72 17 164/99 H 93 L Room Air 3 11/17/24 16:00 11/17/24 16:00 11/17/24 16:00 11/17/24 16:00 11/17/24 16:00 11/17/24 16:00 11/16/24 20:00 Objective Labs 11/17/24 05:48 11/17/24 05:48 Labs: Laboratory Results - last 24 hr 11/15/24 11/17/24 06:21 05:48 WBC 6.7 RBC 3.31 L Hgb 8.3 L Hct 26.9 L MCV 81 MCH 25.1 MCHC 30.9 L RDW Std Deviation 45.4 H Plt Count 495 H D Neut % (Auto) 65 Lymph % (Auto) 25 [place] % (Auto) 9 Eos % (Auto) 1 Baso % (Auto) 0 Neut # (Auto) 4.3 Lymph # (Auto) 1.6 [place] # (Auto) 0.6 Eos # (Auto) 0.1 Baso # (Auto) 0.0 Immature Gran # (Auto) 0.03 H Absolute Nucleated RBC 0.00 Immature Gran % 0 Nucleated RBC % 0 Sodium 138 Potassium 4.5 Chloride 106 Carbon Dioxide 24.3 Anion Gap 8 BUN 10 Creatinine 0.8 Estim Creat Clear Calc 106.3 eGFR > 60 BUN/Creatinine Ratio 13 Glucose 150 H Calculated Osmolality 277 Calcium 8.4 Corrected Calcium 9.0 Phosphorus 4.1 Magnesium 1.6 Total Bilirubin 0.2 L AST < 8 ALT < 7 L Alkaline Phosphatase 100 Total Protein 5.8 Albumin 3.2 L Globulin 2.6 Albumin/Globulin Ratio 1.2 Hepatitis A IgM Ab Non Reactive Hep Bs Antigen Non Reactive Hep B Core IgM Ab Non Reactive Hepatitis C Antibody Non Reactive Impressions Impression: # Gastritis # 1+ esophageal varices # Distal esophageal ulcer # 2+ internal hemorrhoids # Diverticulosis sigmoid and descending colon Continue current management possible discharge planning for tomorrow Assessment & Plan A&P Narrative # Acute posthemorrhagic anemia with occult GI bleeding presenting hemoglobin 5.2 g and hematocrit 17.9 Plan Case discussed with the internal medicine team and the ER physician metal forger's assistant Agree with the blood transfusion IV Protonix and octreotide Consent obtained for fiberoptic esophagogastroduodenoscopy with possible therapeutic intervention under intravenous moderate sedation of this procedure scheduled Indications endoscopy is negative we will consider doing a fiberoptic endoscopy prior to discharge # Subcapsular splenic hematoma decreasing in size of the recent imaging study # Essential hypertension # Chronic pain syndrome # Polysubstance abuse as well as alcohol abuse in the past Thank you very much for the opportunity to participate in the care of this patient Time Spent With Patient Time: Total time spent is greater than 50% in coordination of care (as documented) at patient's floor/unit and/or counseling patient:
[2024-11-17] MEDS: QUEtiapine FUMARATE 25 MG TABLET PO (20:40)
[2024-11-18] VITALS (10 sets, daily range): BP systolic 126–152; BP diastolic 74–98; PULSE 60–90; RESP 16–19; TEMP 36.1–36.9; O2SAT 96–100; BMI 22.2
[2024-11-18 08:50] LABS: Basophils % (Auto) 1 % (0-2.5); Eosinophils # (Auto) 0.1 Thou/mm3 (0.0-0.5); Eosinophils % (Auto) 2 % (0-10); Hematocrit 27.5 % (41.0-53.0); Immature Granulocytes % (Auto) 1 % (0-0); Immature Granulocytes Auto 0.03 Thou/mm3 (0.00-0.00); Lymphocytes # (Auto) 1.4 Thou/mm3 (1.0-4.8); Lymphocytes % (Auto) 22 % (10-50); Mean Corpuscular HGB Conc 30.9 g/dl (31.0-37.0); Mean Corpuscular Volume 81 fL (80-100); Monocytes # (Auto) 0.6 Thou/mm3 (0.0-0.8); Monocytes % (Auto) 9 % (0-12); Neutrophils # (Auto) 4.4 Thou/mm3 (1.8-7.7); Neutrophils % (Auto) 67 % (37-80); Nucleated Red Blood Cell % 0 /100 WBC (0); Platelet Count 468 Thou/mm3 (140-440); RDW Standard Deviation 44.5 fL (35.1-43.9); White Blood Count 6.6 Thou/mm3 (3.8-10.6)
[2024-11-18 08:52] LABS: Hemoglobin 8.5 g/dL (13.5-16.0)
[2024-11-18 09:27] LABS: Alanine Aminotransferase < 7 U/L (10-49); Albumin, Serum 3.4 gm/dL (3.5-5.0); Albumin/Globulin Ratio 1.2 (1.2-2.2); Alkaline Phosphatase 104 U/L (46-116); Anion Gap 10 (7-16); Aspartate Amino Transferase 10 U/L (0-34); BUN/Creatinine Ratio 14 Ratio (12-20); Bilirubin,Total 0.2 mg/dL (0.3-1.2); Blood Urea Nitrogen 11 mg/dL (9-23); Calcium 8.6 mg/dL (8.3-10.6); Calcium (Corrected) 9.1 mg/dL (8.5-10.1); Carbon Dioxide 23.5 mMol/L (20.0-31.0); Chloride 103 mMol/L (98-107); Creatinine (Component) 0.8 mg/dL (0.6-1.3); Estimated Creatinine Clearance 106.3 mL/min (>60); Globulin 2.8 gm/dL (2.3-3.5); Glucose 174 mg/dL (74-106); Magnesium 1.6 mg/dL (1.6-2.6); Osmolality,Calculated 275 (275-295); Phosphorous 3.5 mg/dL (2.4-5.1); Potassium 4.1 mMol/L (3.4-5.1); Sodium 136 mMol/L (136-145); Total Protein 6.2 gm/dL (5.7-8.2); eGFR > 60 See Note
[2024-11-18] MEDS: Lisinopril 2.5 MG TABLET 10 MG PO ×2 (09:46→20:47)
[2024-11-18] MEDS: FOLIC ACID 1 MG TABLET PO ×2 (09:46→20:46)
[2024-11-18] MEDS: THIAMINE 100 MG TABLET PO ×2 (09:46→20:46)
[2024-11-18] MEDS: PANTOPRAZOLE INJ 40 MG VIAL IVP ×2 (09:48→20:43)
--- NOTE | 2024-11-18 11:28 | ESPR_ITS ---
<Statement entered by Man Hoover MD - 11/19/24 05:56> I discussed with and supervised the spring internship physician involved in the care of this patient. Patient assessment and plan was discussed with entire medicine team, including my attending. I agree with the assessment and plan as documented by spring internship doctor. Patient care was discussed with my attending physician Dr. Indu Hoover, PGY-2 Documentation for date of: 11/18/24 Subjective Subjective Interval history: Patient was seen and examined at bedside this AM. No acute exents overnight. Patient tolerating diet, adequate urine output and mentation is at baseline. Patient endorses improvement of epigastric pain. Day 4 of octreotide infusion to complete 5 days on 11/19/2024 as per GI recommendations. Exam Vital Signs Temp Pulse Resp BP Pulse Ox O2 Del Method O2 Flow Rate 97.0 F 90 18 142/93 H 99 Room Air 3 11/18/24 08:00 11/18/24 09:46 11/18/24 08:00 11/18/24 09:46 11/18/24 08:00 11/18/24 08:00 11/16/24 20:00 Narrative Exam Constitutional Alert, oriented x 3 and comfortable. Young male, thin, pale and moist mucous membranes HEENT Vision grossly intact. Patent nares. Trachea midline Respiratory Chest normal on inspection and clear auscultation bilaterally Cardiovascular S1 and S2 audible, RRR. No murmurs carotid bruit. No gross JVD. Abdominal Soft and non-tender to palpation in epigastrium. Lower abdominal striae present. Bowel sounds present Genitourinary No bladder tenderness, no flank pain. Normal to palpation Musculoskeletal Extremities tone within normal limits. No LE edema. Neurological CN II - XII grossly intact. Extremity motor and sensation grossly intact. Skin Warm, dry and intact. No apparent lesions. Psychiatric Patient has good affect, is cooperative Objective Labs 11/18/24 08:23 11/18/24 08:23 Labs: Laboratory Results - last 24 hr 11/18/24 08:23 WBC 6.6 RBC 3.40 L Hgb 8.5 L Hct 27.5 L MCV 81 MCH 25.0 MCHC 30.9 L RDW Std Deviation 44.5 H Plt Count 468 H Neut % (Auto) 67 Lymph % (Auto) 22 [place] % (Auto) 9 Eos % (Auto) 2 Baso % (Auto) 1 Neut # (Auto) 4.4 Lymph # (Auto) 1.4 [place] # (Auto) 0.6 Eos # (Auto) 0.1 Baso # (Auto) 0.0 Immature Gran # (Auto) 0.03 H Absolute Nucleated RBC 0.00 Immature Gran % 1 H Nucleated RBC % 0 Sodium 136 Potassium 4.1 Chloride 103 Carbon Dioxide 23.5 Anion Gap 10 BUN 11 Creatinine 0.8 Estim Creat Clear Calc 106.3 eGFR > 60 BUN/Creatinine Ratio 14 Glucose 174 H Calculated Osmolality 275 Calcium 8.6 Corrected Calcium 9.1 Phosphorus 3.5 Magnesium 1.6 Total Bilirubin 0.2 L AST 10 ALT < 7 L Alkaline Phosphatase 104 Total Protein 6.2 Albumin 3.4 L Globulin 2.8 Albumin/Globulin Ratio 1.2 Quality Measures Quality Measures VTE prophylaxis (SCDs) Assessment & Plan Assessment Current Active Medications: Generic Name Dose Route Start Last Admin Trade Name Freq PRN Reason Stop Dose Admin Acetaminophen 650 mg 11/18/24 09:32 Acetaminophen 325 Mg Tablet PO 12/14/24 21:38 Q6H PRN Fever >100.4 or pain 1-6 Hydrocodone Bitart/Acetaminophen 1 tab 11/18/24 09:32 Hydrocodone/Apap 5/325 Tablet PO 11/19/24 21:38 Q4HR PRN PAIN SCALE 7-10 (Severe Al Hydrox/Mg Hydrox/Simethicone 30 ml 11/14/24 21:39 Mg Hyd/Al Hyd/Haja (Maalox Reg) Susp 30 Ml Udc PO 12/14/24 21:38 Q6H PRN Indigestion Chlordiazepoxide HCl 25 mg 11/19/24 07:28 Chlordiazepoxide Hcl 25 Mg Capsule PO 11/20/24 07:27 Q12HR PRN CIWA >12 Folic Acid 1 mg 11/15/24 09:00 11/18/24 09:46 Folic Acid 1 Mg Tablet PO 11/20/24 08:59 1 mg BID SEVEN Administration Octreotide Acetate 1,000 mcg/ 102 mls @ 5.1 mls/hr 11/16/24 12:00 11/17/24 14:18 Sodium Chloride IV 11/19/24 17:41 50 mcg/hr .Q20H SEVEN 5.1 mls/hr Administration Protocol 50 MCG/HR Lisinopril 10 mg 11/17/24 09:00 11/18/24 09:46 Lisinopril 2.5 Mg Tablet PO 12/17/24 08:59 10 mg BID SEVEN Administration Protocol Lorazepam 0.5 mg 11/15/24 07:27 Lorazepam 0.5 Mg Tablet PO 11/20/24 07:26 Q4HR PRN CIWA Score 2-6 Lorazepam 1 mg 11/15/24 07:27 Lorazepam 0.5 Mg Tablet PO 11/20/24 07:26 Q4HR PRN CIWA SCORE 7-11 Ondansetron HCl 4 mg 11/14/24 21:39 11/15/24 00:15 Ondansetron Inj 2 Mg/Ml Inj 2 Ml IV 12/14/24 21:38 4 mg Q6H PRN Administration NAUSEA OR VOMITING Protocol Pantoprazole Sodium 40 mg 11/15/24 09:00 11/18/24 09:48 Pantoprazole Inj 40 Mg Vial IVP 12/15/24 08:59 40 mg BID SEVEN Administration Quetiapine Fumarate 25 mg 11/15/24 11:47 11/17/24 20:40 Quetiapine Fumarate 25 Mg Tablet PO 12/14/24 22:34 25 mg HS PRN Administration Insomnia Sennosides 1 tab 11/14/24 21:39 Senna Tablet PO 12/14/24 21:38 QDAY PRN constipation Protocol Thiamine HCl 100 mg 11/15/24 09:00 11/18/24 09:46 Thiamine 100 Mg Tablet PO 11/20/24 08:59 100 mg BID SEVEN Administration Plan This patient is a 44-year-old male with past medical history of hypertension, gout, chronic pancreatitis with pseudocyst, history of splenic laceration was transferred to [facility] twice however was managed conservatively only with pain medications presented to the ED on 11/14/2024 from PCP office with low hemoglobin. He complained of left abdominal discomfort x 2 weeks ago. He has been passing black stool from last 2 weeks. Patient is admitted for GI bleed workup. Acute blood loss anemia - resolving GI bleed for investigation History of subcapsular hematoma currently stable History of splenic laceration in 2023 Gastritis Patient presented from PCP office with low hemoglobin of 5.2. He did complain of abdominal discomfort x 2 weeks ago with 1 of vomiting episode and black stool for last 2 weeks. On 08/09/2024, EGD showed esophagitis and gastritis pattern. Patient quit drinking alcohol a month ago. In the ED, patient received 3 units of blood transfusion and Protonix [address] abdominal showed subcapsular hematoma smaller in size as compared to previous CT imagings and gastritis pattern. EKG showed sinus rhythm. EGD completed on 11/15/2024 findings include: Grade 1 varices in lower third of esophagus. 1 superficial esophageal ulcer in lower third of esophagus. Diffuse severe inflammation with hemorrhage characterized by erythema in the entire stomach. Colonoscopy completed on 11/16/2024 findings include: Hemorrhoids on perianal exam. A few small mouth diverticula in sigmoid and descending colon. No evidence of diverticular bleed. Recommend outpatient capsule endoscopy. On admission Hb 5.2, post 3 unit PRBC infusion improved to 8.8 Currently Hb 8.5 Plan: ? Sodium restricted diet ? Continue Protonix 40 mg IV twice daily ? Day 4 of octreotide infusion to complete 5 days on 11/19/2024 as per GI recommendations. - Patient will need referral from PCP for capsule endoscopy as outpatient. As per GI recommendations ? GI, Dr. Orellana consulted and closely following the case. Appreciate recommendations History of chronic pancreatitis, stable History of alcohol abuse Cocaine use Previously patient had pancreatic pseudocyst. CT abdomen pelvis from this admission showed no signs of cirrhosis. Patient stated that his last drink was 1 month ago, however upon further investigation he admitted to having an occasional beer. On admission U tox positive for cocaine. Plan: ? CIWA protocol ? Thiamine 100 Mg p.o. twice daily ? Folic acid 1 Mg p.o. twice daily Primary hypertension Home medication lisinopril 10 Mg p.o. twice daily Today BP 124/74 Plan: ? Continue lisinopril 10 Mg p.o. twice daily History of gout Patient takes allopurinol and prednisone as needed when he has a flare. Insomnia Home medication quetiapine 25 Mg p.o. at bedtime as needed for sleep Plan: ? Continue quetiapine 25 Mg p.o. at bedtime as needed for insomnia History of onychomycosis Patient completed course of fluconazole for 3 months. Health maintenance: Disposition: To complete 5 days of octreotide infusion on 11/19/2024. Anticipate discharge within next 24 hours after completion of octreotide infusion Diet: Sodium restricted diet Lines: pIVs GI Prophylaxis: Pantoprazole 40 Mg IV twice daily Thrombo Prophylaxis: SCDs Code status: FULL CODE Plan of care discussed with Attending Dr. Griggs and PGY2 Dr. Sneha Javed MD PGY 1 Attending Provider Attestation/Addendum Myriam Pimentel DO, attest that I was physically present for the mcintosh portions of the service and evaluated the patient with the resident and I reviewed and discussed the case with the resident and agree with the resident's findings and plans of care as documented above Patient seen and evaluated this AM. He states he is doing well , tolerating PO intake. He remains on octreotide drip, day 4 of 5. Anticipate DC tomorrow once he completes 5 total days of octreotide due to esophageal varices. Patient remains hemodynamically stable with H/H stable.
[2024-11-18] MEDS: OCTREOTIDE ACET INJ 1,000 MCG in SODIUM CHLORIDE 0.9% 100 ML 5.1 MCG IV (11:55)
--- NOTE | 2024-11-18 20:17 | PD.IMPROG ---
Documentation for date of: 11/18/24 Subjective Subjective Interval history: Hemoglobin hematocrit 8.5 and 27.5 Exam Vital Signs Temp Pulse Resp BP Pulse Ox O2 Del Method O2 Flow Rate 97.7 F 73 17 143/91 H 100 Room Air 3 11/18/24 16:00 11/18/24 19:39 11/18/24 16:00 11/18/24 16:00 11/18/24 16:00 11/18/24 16:00 11/16/24 20:00 Objective Labs 11/18/24 08:23 11/18/24 08:23 Labs: Laboratory Results - last 24 hr 11/18/24 08:23 WBC 6.6 RBC 3.40 L Hgb 8.5 L Hct 27.5 L MCV 81 MCH 25.0 MCHC 30.9 L RDW Std Deviation 44.5 H Plt Count 468 H Neut % (Auto) 67 Lymph % (Auto) 22 [place] % (Auto) 9 Eos % (Auto) 2 Baso % (Auto) 1 Neut # (Auto) 4.4 Lymph # (Auto) 1.4 [place] # (Auto) 0.6 Eos # (Auto) 0.1 Baso # (Auto) 0.0 Immature Gran # (Auto) 0.03 H Absolute Nucleated RBC 0.00 Immature Gran % 1 H Nucleated RBC % 0 Sodium 136 Potassium 4.1 Chloride 103 Carbon Dioxide 23.5 Anion Gap 10 BUN 11 Creatinine 0.8 Estim Creat Clear Calc 106.3 eGFR > 60 BUN/Creatinine Ratio 14 Glucose 174 H Calculated Osmolality 275 Calcium 8.6 Corrected Calcium 9.1 Phosphorus 3.5 Magnesium 1.6 Total Bilirubin 0.2 L AST 10 ALT < 7 L Alkaline Phosphatase 104 Total Protein 6.2 Albumin 3.4 L Globulin 2.8 Albumin/Globulin Ratio 1.2 Impressions Impression: Acute posthemorrhagic anemia distal esophageal ulcer gastritis diverticulosis colon 1+ esophageal varices continue present supportive care Assessment & Plan A&P Narrative # Acute posthemorrhagic anemia with occult GI bleeding presenting hemoglobin 5.2 g and hematocrit 17.9 Plan Case discussed with the internal medicine team and the ER physician assistant boiler operator Agree with the blood transfusion IV Protonix and octreotide Consent obtained for fiberoptic esophagogastroduodenoscopy with possible therapeutic intervention under intravenous moderate sedation of this procedure scheduled Indications endoscopy is negative we will consider doing a fiberoptic endoscopy prior to discharge # Subcapsular splenic hematoma decreasing in size of the recent imaging study # Essential hypertension # Chronic pain syndrome # Polysubstance abuse as well as alcohol abuse in the past Thank you very much for the opportunity to participate in the care of this patient Time Spent With Patient Time: Total time spent is greater than 50% in coordination of care (as documented) at patient's floor/unit and/or counseling patient:
[2024-11-18] MEDS: QUEtiapine FUMARATE 25 MG TABLET PO (22:55)
[2024-11-18] MEDS: HYDROcodone/APAP 5/325 TABLET 1 TAB PO (22:55)
[2024-11-19] VITALS (10 sets, daily range): BP systolic 105–142; BP diastolic 59–99; PULSE 58–90; RESP 16–20; TEMP 35.8–36.9; O2SAT 96–100; BMI 22.2
[2024-11-19] MEDS: HYDROcodone/APAP 5/325 TABLET 1 TAB PO ×3 (05:29→19:07)
[2024-11-19 05:49] LABS: Basophils % (Auto) 1 % (0-2.5); Eosinophils # (Auto) 0.1 Thou/mm3 (0.0-0.5); Eosinophils % (Auto) 2 % (0-10); Hematocrit 28.1 % (41.0-53.0); Immature Granulocytes % (Auto) 0 % (0-0); Immature Granulocytes Auto 0.02 Thou/mm3 (0.00-0.00); Lymphocytes # (Auto) 1.8 Thou/mm3 (1.0-4.8); Lymphocytes % (Auto) 31 % (10-50); Mean Corpuscular HGB Conc 30.6 g/dl (31.0-37.0); Mean Corpuscular Hemoglobin 24.9 pg (25.0-35.0); Mean Corpuscular Volume 81 fL (80-100); Monocytes # (Auto) 0.6 Thou/mm3 (0.0-0.8); Monocytes % (Auto) 10 % (0-12); Neutrophils # (Auto) 3.3 Thou/mm3 (1.8-7.7); Neutrophils % (Auto) 57 % (37-80); Nucleated Red Blood Cell % 0 /100 WBC (0); Platelet Count 450 Thou/mm3 (140-440); RDW Standard Deviation 45.4 fL (35.1-43.9); Red Blood Count 3.45 Miln/mm3 (4.50-5.90); White Blood Count 5.9 Thou/mm3 (3.8-10.6)
[2024-11-19 05:54] LABS: Hemoglobin 8.6 g/dL (13.5-16.0)
[2024-11-19 06:27] LABS: Alanine Aminotransferase 8 U/L (10-49); Albumin, Serum 3.6 gm/dL (3.5-5.0); Alkaline Phosphatase 105 U/L (46-116); Anion Gap 12 (7-16); Aspartate Amino Transferase 16 U/L (0-34); BUN/Creatinine Ratio 14 Ratio (12-20); Bilirubin,Total 0.2 mg/dL (0.3-1.2); Blood Urea Nitrogen 13 mg/dL (9-23); Calcium 9.1 mg/dL (8.3-10.6); Calcium (Corrected) 9.4 mg/dL (8.5-10.1); Carbon Dioxide 19.6 mMol/L (20.0-31.0); Chloride 103 mMol/L (98-107); Creatinine (Component) 0.9 mg/dL (0.6-1.3); Estimated Creatinine Clearance 94.5 mL/min (>60); Globulin 3.5 gm/dL (2.3-3.5); Glucose 215 mg/dL (74-106); Magnesium 1.5 mg/dL (1.6-2.6); Osmolality,Calculated 276 (275-295); Phosphorous 3.7 mg/dL (2.4-5.1); Potassium 4.2 mMol/L (3.4-5.1); Sodium 135 mMol/L (136-145); Total Protein 7.1 gm/dL (5.7-8.2); eGFR > 60 See Note
[2024-11-19] MEDS: Lisinopril 2.5 MG TABLET 10 MG PO ×2 (08:27→20:20)
[2024-11-19] MEDS: FOLIC ACID 1 MG TABLET PO ×2 (08:27→20:21)
[2024-11-19] MEDS: OCTREOTIDE ACET INJ 1,000 MCG in SODIUM CHLORIDE 0.9% 100 ML 5.1 MCG IV (08:27)
[2024-11-19] MEDS: THIAMINE 100 MG TABLET PO ×2 (08:27→20:21)
[2024-11-19] MEDS: PANTOPRAZOLE INJ 40 MG VIAL IVP ×2 (08:28→20:22)
[2024-11-19] MEDS: Magnesium Sulfate 2 GM Ivpb 2 GM/50 ML BAG IV (08:38)
--- NOTE | 2024-11-19 09:23 | ESPR_ITS ---
<Statement entered by Man Hoover MD - 11/19/24 18:42> I discussed with and supervised the safety intern physician involved in the care of this patient. Patient assessment and plan was discussed with entire medicine team, including my attending. I agree with the assessment and plan as documented by safety intern doctor. Patient care was discussed with my attending physician Dr. Sergio Hoover, PGY-2 Documentation for date of: 11/19/24 Subjective Subjective Interval history: Patient was seen and examined at bedside this AM. No acute exents overnight. Patient tolerating diet, adequate urine output and mentation is at baseline. Patient denies abdominal pain, nausea, vomiting, diarrhea and MT bleeding. Day 5 of octreotide infusion to complete 5 days on 11/19/2024 as per GI recommendations. Patient can be discharged tomorrow after infusion completed Exam Vital Signs Temp Pulse Resp BP Pulse Ox O2 Del Method O2 Flow Rate 96.7 F L 60 16 105/59 L 99 Room Air 3 11/19/24 08:00 11/19/24 08:27 11/19/24 08:00 11/19/24 08:27 11/19/24 08:00 11/19/24 08:00 11/19/24 04:00 Narrative Exam Constitutional Alert, oriented x 3 and comfortable. Young male, thin, pale and moist mucous membranes HEENT Vision grossly intact. Patent nares. Trachea midline Respiratory Chest normal on inspection and clear auscultation bilaterally Cardiovascular S1 and S2 audible, RRR. No murmurs carotid bruit. No gross JVD. Abdominal Soft and non-tender to palpation in epigastrium. Lower abdominal striae present. Bowel sounds present Genitourinary No bladder tenderness, no flank pain. Normal to palpation Musculoskeletal Extremities tone within normal limits. No LE edema. Neurological CN II - XII grossly intact. Extremity motor and sensation grossly intact. Skin Warm, dry and intact. No apparent lesions. Psychiatric Patient has good affect, is cooperative Objective Labs 11/19/24 05:20 11/19/24 05:20 Labs: Laboratory Results - last 24 hr 11/18/24 11/19/24 08:23 05:20 WBC 5.9 RBC 3.45 L Hgb 8.6 L Hct 28.1 L MCV 81 MCH 24.9 L MCHC 30.6 L RDW Std Deviation 45.4 H Plt Count 450 H Neut % (Auto) 57 Lymph % (Auto) 31 Coal % (Auto) 10 Eos % (Auto) 2 Baso % (Auto) 1 Neut # (Auto) 3.3 Lymph # (Auto) 1.8 Coal # (Auto) 0.6 Eos # (Auto) 0.1 Baso # (Auto) 0.0 Immature Gran # (Auto) 0.02 H Absolute Nucleated RBC 0.00 Immature Gran % 0 Nucleated RBC % 0 Sodium 136 135 L Potassium 4.1 4.2 Chloride 103 103 Carbon Dioxide 23.5 19.6 L Anion Gap 10 12 BUN 11 13 Creatinine 0.8 0.9 Estim Creat Clear Calc 106.3 94.5 eGFR > 60 > 60 BUN/Creatinine Ratio 14 14 Glucose 174 H 215 H Calculated Osmolality 275 276 Calcium 8.6 9.1 Corrected Calcium 9.1 9.4 Phosphorus 3.5 3.7 Magnesium 1.6 1.5 L Total Bilirubin 0.2 L 0.2 L AST 10 16 ALT < 7 L 8 L Alkaline Phosphatase 104 105 Total Protein 6.2 7.1 Albumin 3.4 L 3.6 Globulin 2.8 3.5 Albumin/Globulin Ratio 1.2 1.0 L Quality Measures Quality Measures VTE prophylaxis (SCDs) Assessment & Plan Assessment Current Active Medications: Generic Name Dose Route Start Last Admin Trade Name Freq PRN Reason Stop Dose Admin Acetaminophen 650 mg 11/18/24 09:32 Acetaminophen 325 Mg Tablet PO 12/14/24 21:38 Q6H PRN Fever >100.4 or pain 1-6 Hydrocodone Bitart/Acetaminophen 1 tab 11/18/24 09:32 11/19/24 05:29 Hydrocodone/Apap 5/325 Tablet PO 11/19/24 21:38 1 tab Q4HR PRN Administration PAIN SCALE 7-10 (Severe Al Hydrox/Mg Hydrox/Simethicone 30 ml 11/14/24 21:39 Mg Hyd/Al Hyd/Haja (Maalox Reg) Susp 30 Ml Udc PO 12/14/24 21:38 Q6H PRN Indigestion Chlordiazepoxide HCl 25 mg 11/19/24 07:28 Chlordiazepoxide Hcl 25 Mg Capsule PO 11/20/24 07:27 Q12HR PRN CIWA >12 Folic Acid 1 mg 11/15/24 09:00 11/19/24 08:27 Folic Acid 1 Mg Tablet PO 11/20/24 08:59 1 mg BID SEVEN Administration Octreotide Acetate 1,000 mcg/ 102 mls @ 5.1 mls/hr 11/16/24 12:00 11/19/24 08:27 Sodium Chloride IV 11/19/24 17:41 50 mcg/hr .Q20H SEVEN 5.1 mls/hr Administration Protocol 50 MCG/HR Magnesium Sulfate 2 gm in 50 mls @ 25 mls/hr 11/19/24 07:54 11/19/24 08:38 Magnesium Sulfate Ivpb IV 11/19/24 09:53 25 mls/hr X1 ONE Administration Lisinopril 10 mg 11/17/24 09:00 11/19/24 08:27 Lisinopril 2.5 Mg Tablet PO 12/17/24 08:59 10 mg BID SEVEN Administration Protocol Lorazepam 0.5 mg 11/15/24 07:27 Lorazepam 0.5 Mg Tablet PO 11/20/24 07:26 Q4HR PRN CIWA Score 2-6 Lorazepam 1 mg 11/15/24 07:27 Lorazepam 0.5 Mg Tablet PO 11/20/24 07:26 Q4HR PRN CIWA SCORE 7-11 Ondansetron HCl 4 mg 11/14/24 21:39 11/15/24 00:15 Ondansetron Inj 2 Mg/Ml Inj 2 Ml IV 12/14/24 21:38 4 mg Q6H PRN Administration NAUSEA OR VOMITING Protocol Pantoprazole Sodium 40 mg 11/15/24 09:00 11/19/24 08:28 Pantoprazole Inj 40 Mg Vial IVP 12/15/24 08:59 40 mg BID SEVEN Administration Quetiapine Fumarate 25 mg 11/15/24 11:47 11/18/24 22:55 Quetiapine Fumarate 25 Mg Tablet PO 12/14/24 22:34 25 mg HS PRN Administration Insomnia Sennosides 1 tab 11/14/24 21:39 Senna Tablet PO 12/14/24 21:38 QDAY PRN constipation Protocol Thiamine HCl 100 mg 11/15/24 09:00 11/19/24 08:27 Thiamine 100 Mg Tablet PO 11/20/24 08:59 100 mg BID SEVEN Administration Plan This patient is a 44-year-old male with past medical history of hypertension, gout, chronic pancreatitis with pseudocyst, history of splenic laceration was transferred to [facility] twice however was managed conservatively only with pain medications presented to the ED on 11/14/2024 from PCP office with low hemoglobin. He complained of left abdominal discomfort x 2 weeks ago. He has been passing black stool from last 2 weeks. Patient is admitted for GI bleed workup. Acute blood loss anemia - resolving GI bleed for investigation History of subcapsular hematoma currently stable History of splenic laceration in 2023 Gastritis Patient presented from PCP office with low hemoglobin of 5.2. He did complain of abdominal discomfort x 2 weeks ago with 1 of vomiting episode and black stool for last 2 weeks. On 08/09/2024, EGD showed esophagitis and gastritis pattern. Patient quit drinking alcohol a month ago. In the ED, patient received 3 units of blood transfusion and Protonix [address] abdominal showed subcapsular hematoma smaller in size as compared to previous CT imagings and gastritis pattern. EKG showed sinus rhythm. EGD completed on 11/15/2024 findings include: Grade 1 varices in lower third of esophagus. 1 superficial esophageal ulcer in lower third of esophagus. Diffuse severe inflammation with hemorrhage characterized by erythema in the entire stomach. Colonoscopy completed on 11/16/2024 findings include: Hemorrhoids on perianal exam. A few small mouth diverticula in sigmoid and descending colon. No evidence of diverticular bleed. Recommend outpatient capsule endoscopy. On admission Hb 5.2, post 3 unit PRBC infusion improved to 8.8 Currently Hb 8.6 Anticipate discharge after completion of octreotide infusion Plan: ? Sodium restricted diet ? Continue Protonix 40 mg IV twice daily ? Day 5 of octreotide infusion to complete 5 days on 11/19/2024 as per GI recommendations. - Patient will need referral from PCP for capsule endoscopy as outpatient. As per GI recommendations ? GI, Dr. Orellana consulted and closely following the case. Appreciate recommendations History of chronic pancreatitis, stable History of alcohol abuse Cocaine use Previously patient had pancreatic pseudocyst. CT abdomen pelvis from this admission showed no signs of cirrhosis. Patient stated that his last drink was 1 month ago, however upon further investigation he admitted to having an occasional beer. On admission U tox positive for cocaine. Plan: ? CIWA protocol ? Thiamine 100 Mg p.o. twice daily ? Folic acid 1 Mg p.o. twice daily Primary hypertension Home medication lisinopril 10 Mg p.o. twice daily Today BP 127/60 Plan: ? Continue lisinopril 10 Mg p.o. twice daily History of gout Patient takes allopurinol and prednisone as needed when he has a flare. Insomnia Home medication quetiapine 25 Mg p.o. at bedtime as needed for sleep Plan: ? Continue quetiapine 25 Mg p.o. at bedtime as needed for insomnia History of onychomycosis Patient completed course of fluconazole for 3 months. Health maintenance: Disposition: To complete 5 days of octreotide infusion on 11/19/2024, total. Anticipate discharge within next 24 hours after completion of octreotide infusion Diet: Sodium restricted diet Lines: pIVs GI Prophylaxis: Pantoprazole 40 Mg IV twice daily Thrombo Prophylaxis: SCDs Code status: FULL CODE Plan of care discussed with Attending Dr. Hill and PGY2 Dr. Sneha Javed MD PGY 1 Attending Provider Attestation/Addendum I reviewed labs, imaging, EKG, home medications and prior available records. Face to face evaluation was performed by me. I have personally examined the patient and discussed assessment and plan with the IM team. I reviewed the resident note and agree with the plan with exceptions as below. Upper GI bleed Subcapsular hematoma Esophageal varices Esophageal ulcer Acute anemia Cocaine use Started octreotide IV. Finish on 11/20 Monitor H&H Counseled the patient regarding the importance of avoiding alcohol and cocaine use Continue Protonix
--- NOTE | 2024-11-19 09:57 | PC.SS ---
Follow up note: today is the last day of Iv Octreotide. Possible d/c home tomorrow.
[2024-11-19] MEDS: QUEtiapine FUMARATE 25 MG TABLET PO (20:22)
--- NOTE | 2024-11-19 22:26 | ESPR_ITS ---
Documentation for date of: 11/19/24 Subjective Subjective Interval history: Hemoglobin hematocrit 8.6 and 28.1 Exam Vital Signs Temp Pulse Resp BP Pulse Ox O2 Del Method O2 Flow Rate 98.4 F 90 18 142/99 H 96 Room Air 3 11/19/24 20:00 11/19/24 20:20 11/19/24 20:00 11/19/24 20:20 11/19/24 20:00 11/19/24 20:00 11/19/24 20:00 Constitutional Comments: Alert oriented Routine Respiratory Exam Comments: Normal to auscultation Objective Labs 11/19/24 05:20 11/19/24 05:20 Labs: Laboratory Results - last 24 hr 11/19/24 05:20 WBC 5.9 RBC 3.45 L Hgb 8.6 L Hct 28.1 L MCV 81 MCH 24.9 L MCHC 30.6 L RDW Std Deviation 45.4 H Plt Count 450 H Neut % (Auto) 57 Lymph % (Auto) 31 [place] % (Auto) 10 Eos % (Auto) 2 Baso % (Auto) 1 Neut # (Auto) 3.3 Lymph # (Auto) 1.8 [place] # (Auto) 0.6 Eos # (Auto) 0.1 Baso # (Auto) 0.0 Immature Gran # (Auto) 0.02 H Absolute Nucleated RBC 0.00 Immature Gran % 0 Nucleated RBC % 0 Sodium 135 L Potassium 4.2 Chloride 103 Carbon Dioxide 19.6 L Anion Gap 12 BUN 13 Creatinine 0.9 Estim Creat Clear Calc 94.5 eGFR > 60 BUN/Creatinine Ratio 14 Glucose 215 H Calculated Osmolality 276 Calcium 9.1 Corrected Calcium 9.4 Phosphorus 3.7 Magnesium 1.5 L Total Bilirubin 0.2 L AST 16 ALT 8 L Alkaline Phosphatase 105 Total Protein 7.1 Albumin 3.6 Globulin 3.5 Albumin/Globulin Ratio 1.0 L Impressions Impression: # Acute posthemorrhagic anemia # Esophageal varices # Gastritis # Diverticulosis: Of the left colon Continue current management Assessment & Plan A&P Narrative # Acute posthemorrhagic anemia with occult GI bleeding presenting hemoglobin 5.2 g and hematocrit 17.9 Plan Case discussed with the internal medicine team and the ER physician learning and development assistant Agree with the blood transfusion IV Protonix and octreotide Consent obtained for fiberoptic esophagogastroduodenoscopy with possible therapeutic intervention under intravenous moderate sedation of this procedure scheduled Indications endoscopy is negative we will consider doing a fiberoptic endoscopy prior to discharge # Subcapsular splenic hematoma decreasing in size of the recent imaging study # Essential hypertension # Chronic pain syndrome # Polysubstance abuse as well as alcohol abuse in the past Thank you very much for the opportunity to participate in the care of this patient Time Spent With Patient Time: Total time spent is greater than 50% in coordination of care (as documented) at patient's floor/unit and/or counseling patient:
[2024-11-20] VITALS: BP 118/67; PULSE 69; RESP 20; TEMP 36.6; O2SAT 99
[2024-11-20 00:22] VITALS: PULSE 77
[2024-11-20 04:00] VITALS: BP 137/76; PULSE 69; PULSE 73; RESP 18; TEMP 36.4; O2SAT 98
[2024-11-20 06:00] VITALS: BMI 22.2
[2024-11-20 08:00] VITALS: BP 112/55; PULSE 67; PULSE 84; RESP 17; TEMP 36.6; O2SAT 99
[2024-11-20 08:42] VITALS: BP 112/55; PULSE 67
[2024-11-20] MEDS: PANTOPRAZOLE INJ 40 MG VIAL IVP (08:42)
[2024-11-20] MEDS: Lisinopril 2.5 MG TABLET 10 MG PO (08:42)
--- NOTE | 2024-11-20 10:23 | ESDS_ITS ---
Planned Discharge Date 11/20/24 DS: Providers Provider Date of admission: 11/14/24 21:39 Primary care physician: Physician No Primary/Family Admitting Provider: Juan Pablo Jiménez MD Attending Provider on Admission: Immanuel Hill MD Consults: 11/14/24 21:06 Consult to Gastroenterology Stat Comment: Upper GI bleed Consulting Provider: Maryanne Orellana Attending Provider on DC: Immanuel Hill MD Discharging Provider: Surendra Javed MD DS: Diagnosis Problem List Completed Was Problem List Reviewed/Reconciled?: Yes Hospital Course Hospital Course Hospital course: This patient is a 44-year-old male with past medical history of hypertension, gout, chronic pancreatitis with pseudocyst, history of splenic laceration was transferred to [facility] twice however was managed conservatively only with pain medications presented to the ED on 11/14/2024 from PCP office with low hemoglobin. He complained of left abdominal discomfort x 2 weeks ago. He has been passing black stool from last 2 weeks. Patient is admitted for GI bleed workup. With regards to patient's acute blood loss anemia. He received 3 units PRBC in the ED after which his hemoglobin improved from 5.2 to 8.8 and remained stable during hospitalization. GI, Dr. Orellana consulted and performed EGD and colonoscopy. No active source of bleeding was identified. Patient was treated with 5 days of octreotide infusion from 11/14/2024 to 11/19/2024. Recommended capsule endoscopy as outpatient to identify source of GI bleed. EGD completed on 11/15/2024 findings include: Grade 1 varices in lower third of esophagus. 1 superficial esophageal ulcer in lower third of esophagus. Diffuse severe inflammation with hemorrhage characterized by erythema in the entire stomach. Colonoscopy completed on 11/16/2024 findings include: Hemorrhoids on perianal exam. A few small mouth diverticula in sigmoid and descending colon. No evidence of diverticular bleed. Recommend outpatient capsule endoscopy. All patient's labs are now returning to baseline. Patient is now clinically stable for to discharge to home. Discharge diagnoses: 1. Acute blood loss anemia?resolving 2. GI bleed for investigation 3. History of subcapsular hematoma currently stable 4. History of splenic laceration 2023 5. Gastritis 6. Portal hypertension with esophageal varices and hemorrhagic portal gastropathy 7. History of chronic pancreatitis 8. History of alcohol abuse disorder 9. Cocaine use 10. Primary hypertension 11. History of gout 12. Insomnia 13. History of onychomycosis Discharge plan: - We have put a hold on your medication prednisone until you see your PCP ? Monitor your bowel movements for dark sticky stool. - Avoid alcohol, NSAIDs like ALLEVE, spicy foods ? Continue taking all rest of your home medications as before. ? Please follow-up with your estimating manager within 1 to 2 weeks of discharge. Call their office to make an appointment ? Please follow-up with your primary care doctor within 1 week of discharge for referral for a capsule endoscopy. - Follow up with your primary care physician within 1 week of discharge. If you do not have a primary care physician, please follow up with the [facility] Residents clinic ([phone]) ? If you experience any new, worsening or persistent symptoms either call your primary doctor, or dial 911 or present to the emergency department. We are grateful to be able to participate in Mr. Mg's care. We wish him the best. Plan of care discussed with Attending Dr. Hill and PGY2 Dr. Sneha Javed MD PGY 1 Time spent discussing smoking cessation with patient: more than 10 minutes (20) Time Spent with Patient Time attestation: Total time spent providing and/or coordinating discharge services: Time spent: Greater than 30 minutes (40) Exam Vital Signs Temp Pulse Resp BP Pulse Ox O2 Del Method O2 Flow Rate 97.8 F 67 17 112/55 L 99 Room Air 3 11/20/24 08:00 11/20/24 08:42 11/20/24 08:00 11/20/24 08:42 11/20/24 08:00 11/20/24 08:00 11/20/24 04:00 Narrative Exam Constitutional Alert, oriented x 3 and comfortable. Young male, thin, pale and moist mucous membranes HEENT Vision grossly intact. Patent nares. Trachea midline Respiratory Chest normal on inspection and clear auscultation bilaterally Cardiovascular S1 and S2 audible, RRR. No murmurs carotid bruit. No gross JVD. Abdominal Soft and non-tender to palpation in epigastrium. Lower abdominal striae present. Bowel sounds present Genitourinary No bladder tenderness, no flank pain. Normal to palpation Musculoskeletal Extremities tone within normal limits. No LE edema. Neurological CN II - XII grossly intact. Extremity motor and sensation grossly intact. Skin Warm, dry and intact. No apparent lesions. Psychiatric Patient has good affect, is cooperative Discharge Plan Plan Patient Disposition: HOME (Self Care) Disposition Comment: Stable Care Plan Goals: - We have put a hold on your medication prednisone until you see your PCP ? Monitor your bowel movements for dark sticky stool. - Avoid alcohol, NSAIDs like ALLEVE, spicy foods ? Continue taking all rest of your home medications as before. ? Please follow-up with your estimating manager within 1 to 2 weeks of discharge. Call their office to make an appointment ? Please follow-up with your primary care doctor within 1 week of discharge for referral for a capsule endoscopy. - Follow up with your primary care physician within 1 week of discharge. If you do not have a primary care physician, please follow up with the [facility] Residents clinic ([phone]) ? If you experience any new, worsening or persistent symptoms either call your primary doctor, or dial 911 or present to the emergency department. Prescriptions/Referrals Prescriptions/Med Rec: Continued allopurinol 100 mg tablet 100 mg PO QDAY hydrocodone-acetaminophen 10-325 mg tablet 1 tab PO BID PRN (Reason: Pain) ergocalciferol (vitamin D2) 1,250 mcg (50,000 unit) capsule 1,250 mcg PO QWEEK Rx Instructions: took on lisinopril 20 mg tablet 10 mg PO BID Patient Comments: TAKE 2 TABLETS BY MOUTH EVERY DAY Rx Instructions: Patient states he only takes as needed when BP really bad. quetiapine 25 mg tablet 25 mg PO PRN PRN (Reason: Sleep) omeprazole 20 mg Capsule,Delayed Release(Dr/Ec) 20 mg PO QDAY Held prednisone 20 mg tablet 20 mg PO QDAY Hold Instructions: Resume on 12/04/24. Hold until you see your PCP Rx Instructions: pt takes only when he needs it Referrals: No Primary/Family,Physician [Primary Care Provider] - Patient/Caregiver Discharge Instructions Education Materials: Bleeding Gastrointestinal, Abdominal Pain Print Language: Panamanian Stand Alone Forms: [facility] Award Info., Patient Portal Info Letter Discharge Order Discharge Orders: Discharge (Routine); Ordered 11/20/24 Ordered By: Surendra Javed Quality Discharge Quality Measures VTE prophylaxis (SCDs) Attestestation Attcheo Pimentel reviewed labs, imaging, EKG, home medications and prior available records. Face to face evaluation was performed by me. I have personally examined the patient and discussed assessment and plan with the IM team. I reviewed the resident note and agree with the plan with exceptions as below. Upper GI bleed Subcapsular hematoma Esophageal varices Esophageal ulcer Acute anemia Cocaine use Started octreotide IV. Finished on 11/20 Monitor H&H: Stable Counseled the patient regarding the importance of avoiding alcohol and cocaine use Continue Protonix upon discharge Continue lisinopril for the hypertension Hold prednisone in the setting of GI bleed Time spent is 40 minutes. More than 50% of the time was spent on patient education and coordination of care.
--- NOTE | 2024-11-20 23:10 | ESPR_ITS ---
Documentation for date of: 11/20/24 Subjective Subjective Interval history: Late entry for the note Case discussed with the internal medicine team Okay to discharge patient home to be followed by the PCP Exam Vital Signs Temp Pulse Resp BP Pulse Ox O2 Del Method O2 Flow Rate 97.8 F 67 17 112/55 L 99 Room Air 3 11/20/24 08:00 11/20/24 08:42 11/20/24 08:00 11/20/24 08:42 11/20/24 08:00 11/20/24 08:00 11/20/24 04:00 Objective Labs 11/19/24 05:20 11/19/24 05:20 Impressions Impression: Acute GI bleed stable Okay to discharge patient home to be followed by PCP Assessment & Plan A&P Narrative # Acute posthemorrhagic anemia with occult GI bleeding presenting hemoglobin 5.2 g and hematocrit 17.9 Plan Case discussed with the internal medicine team and the ER physician patient observation assistant Agree with the blood transfusion IV Protonix and octreotide Consent obtained for fiberoptic esophagogastroduodenoscopy with possible therapeutic intervention under intravenous moderate sedation of this procedure scheduled Indications endoscopy is negative we will consider doing a fiberoptic endoscopy prior to discharge # Subcapsular splenic hematoma decreasing in size of the recent imaging study # Essential hypertension # Chronic pain syndrome # Polysubstance abuse as well as alcohol abuse in the past Thank you very much for the opportunity to participate in the care of this patient Time Spent With Patient Time: Total time spent is greater than 50% in coordination of care (as documented) at patient's floor/unit and/or counseling patient:
== END 2024-11-20 10:37 | disposition home or self-care (01) | DRG 242 ==
LOC: SERX 21:16 → SERHOLD 21:51 → S3NX 11-15 03:01 → S2NX 11-15 23:20 → S3NX 11-17 14:40
PROVIDERS: Nurse Practitioner Primary Care; Specialist; Student in an Organized Health Care Education/Training Program; Admitting Provider Internal Medicine; Emergency Provider Emergency Medicine; Visit Provider Student in an Organized Health Care Education/Training Program
PROC: (CPT 43239; principal; 2024-11-15 16:30)
PROC: 0DJD8ZZ Inspection of Lower Intestinal Tract, Via Natural or Artificial Opening Endoscopic (ICD-10-PCS; CPT 45378; principal; 2024-11-16 17:30)
DX: K22.11 Ulcer of esophagus with bleeding (principal); I10 Essential (primary) hypertension; J18.9 Pneumonia, unspecified organism; K29.70 Gastritis, unspecified, without bleeding; K57.30 Diverticulosis of large intestine without perforation or abscess without bleeding; B35.1 Tinea unguium; G47.00 Insomnia, unspecified; D75.839 Thrombocytosis, unspecified; D62 Acute posthemorrhagic anemia; I85.01 Esophageal varices with bleeding; K64.8 Other hemorrhoids; K86.3 Pseudocyst of pancreas; K29.01 Acute gastritis with bleeding; K86.1 Other chronic pancreatitis; K76.6 Portal hypertension; M10.9 Gout, unspecified; F10.10 Alcohol abuse, uncomplicated; F14.90 Cocaine use, unspecified, uncomplicated; Z90.49 Acquired absence of other specified parts of digestive tract; Z79.899 Other long term (current) drug therapy; G89.4 Chronic pain syndrome
CPT/HCPCS: 36415; 36430; 74177; 80053; 80074; 80307; 81001; 83690; 83735; 84100; 84484; 85025; 85610; 85730; 86850; 86900; 86901; 86923; 87811; 93005; 96365; 96366; 96375; 99285; A4649; J1200; J2175; J2250; J2270; J2354; J2405; J2470; J3010; J3475; J7050; P9016; Q9967; A9270

== ENCOUNTER 2025-01-08 08:27 | Emergency (ER) | payer MEDICAID, SELFPAY ==
[2025-01-08 08:28] VITALS: BMI 22.7
[2025-01-08 08:51] VITALS: BP 182/117; PULSE 84; RESP 18; TEMP 37; O2SAT 99; BMI 22.7
--- NOTE | 2025-01-08 08:54 | EKG_ITS ---
[facility] Test Date: 2025-01-08 Pat Name: BRAYAN NANCE Department: Room: - Gender: Male Hematology Technologist: : 1980 Requested By: Heavenly Angeles [place] [place] Order Number: [id number] Reading MD: Heavenly Angeles ([facility] [place] Lis Measurements Intervals [place] Rate: 74 P: 66 [place]: 123 QRS: 55 QRSD: 87 T: 66 QT: 366 QTc: 408 Interpretive Statements SINUS RHYTHM POSSIBLE LEFT ATRIAL ENLARGEMENT [-0.1mV P-WAVE IN V1/V2] Compared to ECG 11/14/2024 11:37:53 No significant changes /store/S0/[id number].pdf
--- NOTE | 2025-01-08 08:56 | PD.EDRME ---
Rapid Medical Screening Exam RME Arrival date/time: 01/08/25 08:27 44-year-old male history of alcoholic abuse, alcoholic gastritis pancreatitis here due to complaints of abdominal pain I have greeted and performed a focused initial assessment of this patient. Initial appropriate labs ordered at this time. A comprehensive ED assessment and evaluation of the patient and analysis of all test and completion of medical decision making process will be conducted by additional ED provider. Chief Complaint: Abdominal Pain Time Seen by Provider: 01/08/25 08:43 Vital signs: Vital Signs Temperature 98.6 F 01/08/25 08:51 Pulse Rate 84 01/08/25 08:51 Respiratory Rate 18 01/08/25 08:51 Blood Pressure 182/117 H 01/08/25 08:51 Pulse Oximetry (%) 99 01/08/25 08:51 Oxygen Delivery Method Room Air 01/08/25 08:51
[2025-01-08 09:40] LABS: Collection Type, Urine Clean Catch; Squamous Epithelial Cell,Urine 0 /hpf (0-5)
[2025-01-08 09:48] LABS: Bilirubin,Urine Negative (Negative); Blood,Urine Negative (Negative); Clarity,Urine Clear (Clear/Hazy); Color,Urine Lt-Yellow (Lt Yel-Yel); Glucose, Urine Negative (Negative); Ketones,Urine Negative (Negative); Leukocyte Esterase,Urine Negative (Negative); Nitrite,Urine Negative (Negative); PH,Urine 6.5 (5.0-7.0); Protein,Urine Negative (Neg - Trace); RBC,Urine 1 /hpf (0-3); Specific Gravity,Urine 1.023 (1.001-1.035); Urobilinogen,Urine Negative mg/dL (0.0-1.0); WBC,Urine 1 /hpf (0-5)
[2025-01-08 09:51] LABS: Basophils % (Auto) 0 % (0-2.5); Eosinophils # (Auto) 0.1 Thou/mm3 (0.0-0.5); Eosinophils % (Auto) 1 % (0-10); Hemoglobin 10.6 g/dL (13.5-16.0); Immature Granulocytes % (Auto) 0 % (0-0); Immature Granulocytes Auto 0.04 Thou/mm3 (0.00-0.00); Lymphocytes # (Auto) 1.9 Thou/mm3 (1.0-4.8); Lymphocytes % (Auto) 18 % (10-50); Mean Corpuscular HGB Conc 30.3 g/dl (31.0-37.0); Mean Corpuscular Hemoglobin 24.3 pg (25.0-35.0); Mean Corpuscular Volume 80 fL (80-100); Monocytes # (Auto) 0.6 Thou/mm3 (0.0-0.8); Monocytes % (Auto) 6 % (0-12); Neutrophils # (Auto) 7.7 Thou/mm3 (1.8-7.7); Neutrophils % (Auto) 75 % (37-80); Nucleated Red Blood Cell % 0 /100 WBC (0); Platelet Count 361 Thou/mm3 (140-440); RDW Standard Deviation 52.4 fL (35.1-43.9); Red Blood Count 4.37 Miln/mm3 (4.50-5.90); White Blood Count 10.3 Thou/mm3 (3.8-10.6)
[2025-01-08 10:07] LABS: Prothrombin Time 11.4 Seconds (9.0-12.2)
[2025-01-08 10:32] LABS: Alanine Aminotransferase 9 U/L (10-49); Albumin, Serum 4.5 gm/dL (3.5-5.0); Albumin/Globulin Ratio 1.7 (1.2-2.2); Alcohol, Blood Medical < 10.0 mg/dL (0-10.0); Alkaline Phosphatase 130 U/L (46-116); Anion Gap 9 (7-16); Aspartate Amino Transferase 16 U/L (0-34); BUN/Creatinine Ratio 16 Ratio (12-20); Bilirubin,Total 0.3 mg/dL (0.3-1.2); Blood Urea Nitrogen 14 mg/dL (9-23); Calcium 9.5 mg/dL (8.3-10.6); Calcium (Corrected) 9.5 mg/dL (8.5-10.1); Chloride 107 mMol/L (98-107); Creatinine (Component) 0.9 mg/dL (0.6-1.3); Estimated Creatinine Clearance 97.4 mL/min (>60); Globulin 2.7 gm/dL (2.3-3.5); Glucose 110 mg/dL (74-106); Lipase 58 U/L (12-53); Magnesium 1.9 mg/dL (1.6-2.6); Osmolality,Calculated 280 (275-295); Sodium 140 mMol/L (136-145); Total Protein 7.2 gm/dL (5.7-8.2); Troponin I < 0.020 ng/mL (0.0-0.045); eGFR > 60 See Note
[2025-01-08 10:42] VITALS: BP 196/119; PULSE 63; RESP 17; TEMP 36.9; O2SAT 100
--- NOTE | 2025-01-08 11:16 | PC.NURSE ---
PT CAME IN WITH C/O LEFT SIDE ABD PAIN FOR 3 DAYS. PT STATES HE HAS HISTORY OF PANCREATITIS AND STATES THAT HIS PAIN IS 10/10 AT THIS TIME. NAUSEA AND VOMITING REPORTED. PT AWAITING TO SEE ER DOCTOR AT THIS TIME
--- NOTE | 2025-01-08 11:38 | XR_ITS ---
Examination: CT abdomen with intravenous contrast CT pelvis with intravenous contrast 2-D coronal reconstructions 2-D sagittal reconstructions Date and time of exam:January 08, 2025 1320 hours Comparison November 14, 2024 INDICATIONS: Left upper abdominal pain today, history trauma to the spleen with subcapsular splenic blood and history splenic embolization coil. CTDI: vol (mGy) 5.79 DLP: (mGycm) 374 Technique: Multiple axial sections of the abdomen and pelvis have been obtained. 64 slice high-resolution scanner used. 3 mm axial sections have been obtained, post intravenous injection 60 cc [id number] 2-D sagittal, coronal reconstructions obtained. Low dose protocols were performed. One or more of the following dose reduction techniques were used; automated exposure control, adjustment of the mA and/or KV according to patient size, use of iterative reconstruction technique. Findings: No focal liver lesions Improvement in subcapsular splenic hematoma, on the left anterior lateral side hematoma measuring 20 mm compared to 33 mm on the prior study Embolization coils are noted splenic artery Absent gallbladder Aorta normal size Mild edema around the body the pancreas No hydronephrosis Aorta normal size No bowel obstruction Normal appendix No diverticulitis Urinary bladder intact with no significant prostatomegaly IMPRESSION: Marked decrease in size of subscapular splenic hematoma with interval embolization coils Suspicious for mild pancreatitis
--- NOTE | 2025-01-08 11:39 | PD.EDABDPN ---
ED Abdominal Pain RME/HPI General Chief Complaint: Abdominal Pain Stated complaint: LUQ ABD PAIN X3 DAYS Time seen by provider: 01/08/25 08:43 Arrival date/time: 01/08/25 08:27 RME / HPI RME / HPI narrative: 44-year-old male patient with significant history of gout arthritis, chronic subscapular hematoma of the spleen, came in for evaluation regarding left upper quadrant pain. Onset of symptoms for the last 3 days as worsening pain to the left upper quadrant, described as sharp pain, severity moderate. Patient denies any fever denies any vomiting denies any other complaints. Patient told me that she did not take her lisinopril this morning due to pain. No medication was given prior to arrival. Related Data Home Medications ?Medication ?Instructions ?Recorded ?Confirmed lisinopril 20 mg tablet 10 mg PO BID 08/10/23 11/15/24 quetiapine 25 mg tablet 25 mg PO PRN PRN Sleep 04/14/24 11/15/24 allopurinol 100 mg tablet 100 mg PO QDAY 06/27/24 11/15/24 ergocalciferol (vitamin D2) 1,250 1,250 mcg PO QWEEK 06/27/24 11/15/24 mcg (50,000 unit) capsule hydrocodone 10 mg-acetaminophen 1 tab PO BID PRN Pain 06/27/24 11/15/24 325 mg tablet prednisone 20 mg tablet 20 mg PO QDAY 06/27/24 11/15/24 Held on 11/20/24. Instructions: Resume on 12/04/24. Hold until you see your PCP omeprazole 20 mg capsule,delayed 20 mg PO QDAY 08/08/24 11/15/24 release Allergies Allergy/AdvReac Type Severity Reaction Status Date / Time No Known Allergies Allergy Verified 01/08/25 08:31 Review of Systems Review of Systems Narrative Review of Systems: Review of system reviewed and within normal limits except mentioned in HPI ED Exam Narrative Physical exam: VITAL SIGNS: Reviewed. GENERAL APPEARANCE: Alert and interactive, follows commands, no acute distress, HEAD AND FACE: Non-traumatic. ENT: PERRL, pink conjunctivitis, eyelid no trauma, Mucous membrane moist. NECK: Supple, nontender, no nuchal rigidity. CHEST: No tenderness, no crepitus, no paradoxical movement, no retractions. LUNGS: Clear, well ventilated, symmetric, no rales, no wheezing, no ronchi, no stridor, good breath sounds bilaterally. HEART: Regular rate, regular rhythm, no murmur, no gallops. ABDOMEN: Soft, positive bowel sounds, nondistended, no guarding, left upper quadrant tenderness, no rebound, no masses, RECTAL: Deferred. GENITAL: Deferred. NEUROLOGICAL: Gross motor function intact sensory function intact, Appropriate for age. MUSCULOSKELETAL: low back nontender, full range of motion. EXTREMITIES: Nontender, full range of motion. SKIN: Color pink, dry, no rash, no lacerations, no abrasions, no contusions. LYMPHATICS: Deferred. Course Quality Measures none Orders Category Date Time Status COVID-19 Screening Questionnaire NOW Care 01/08/25 16:[address] Screening NOW Care 01/08/25 11:39 Active Decision to Admit X1 Care 01/08/25 16:01 Active EKG (ED ONLY) *Do not use* NOW Care 01/08/25 08:54 Completed NPO STAT Care 01/08/25 08:[address] abdomen pelvis w con Stat Exams 01/08/25 11:38 Completed EKG (ED Only) Stat Exams 01/08/25 08:54 Draft CBC Stat Lab 01/08/25 09:40 Completed Comprehensive Metabolic Panel Stat Lab 01/08/25 09:40 Completed Lipase Stat Lab 01/08/25 09:40 Completed DEYSI [Alcohol, Blood Medical] Stat Lab 01/08/25 09:40 Completed Magnesium Stat Lab 01/08/25 09:40 Completed Prothrombin Time with INR Stat Lab 01/08/25 09:40 Completed Troponin I Stat Lab 01/08/25 09:40 Completed Urinalysis Stat Lab 01/08/25 09:31 Completed Famotidine Inj [Pepcid Inj] Med 01/08/25 11:41 Discontinued 20 mg IVP X1 ONE HYDROmorphone INJ [Dilaudid Inj] Med 01/08/25 15:46 Discontinued 1 mg IVP X1 ONE Ketorolac Inj [Toradol Inj] Med 01/08/25 11:38 Discontinued 30 mg IVP X1 ONE Morphine Inj Med 01/08/25 14:55 Discontinued 4 mg IVP X1 ONE Morphine Inj Med 01/08/25 15:47 Discontinued 6 mg IVP X1 ONE NIFEdipine [Procardia] Med 01/08/25 11:38 Discontinued 20 mg PO X1 ONE NIFEdipine [Procardia] Med 01/08/25 12:10 Discontinued 20 mg PO X1 ONE Sodium Chloride 0.9% 1000 ml [Ns] 1,000 ml Med 01/08/25 15:45 Discontinued IV 999 mls/hr Vital Signs Vital signs: Vital Signs Temperature 98.6 F 01/08/25 08:51 Pulse Rate 84 01/08/25 08:51 Respiratory Rate 18 01/08/25 08:51 Blood Pressure 182/117 H 01/08/25 08:51 Pulse Oximetry (%) 99 01/08/25 08:51 Oxygen Delivery Method Room Air 01/08/25 08:51 Abdominal Pain MDM MDM Narrative MDM Narrative:: 44-year-old male patient with significant history of gout arthritis, chronic subscapular hematoma of the spleen, came in for evaluation regarding left upper quadrant pain. Onset of symptoms for the last 3 days as worsening pain to the left upper quadrant, described as sharp pain, severity moderate. Patient denies any fever denies any vomiting denies any other complaints. Patient told me that she did not take her lisinopril this morning due to pain. No medication was given prior to arrival. CT scan of the abdomen pelvis showed possible mild pancreatitis. Lipase was normal. Spoke with hospitalist, Dr. Griggs, who examined the patient in the emergency room and told me that patient is okay to be discharged home she does not think the patient is having acute pancreatitis today. Plan discussed with the patient and okay to be discharged home. Patient data External records reviewed:: None Clinical information provided by:: patient Social determinants that could affect healthcare access:: none Patient has the following chronic illnesses:: History of rheumatoid arthritis, history of chronic subscapular hematoma to the spleen, history of pancreatitis in the past How is presenting disease/condition affected by chronic disease/condition?: exacerbated by Evaluation data The following diagnostics were reviewed and interpreted by me:: lab results and radiology exam(s) Lab and/or radiology exams considered but not ordered:: None Interpretation Summary: EKG showed sinus rhythm, ventricular to 74 bpm, no ST segment elevation depression noted. CT scan of the abdomen pelvis showed Marked decrease in size of subscapular splenic hematoma with interval embolization coils Suspicious for mild pancreatitis Medications / Prescriptions Medications or Prescriptions considered but not ordered:: None Medication administrations:: Medication Administration History Discontinued Medications Famotidine (Famotidine Inj 10 Mg/Ml Vial 2 Ml) 20 mg IVP X1 ONE Stop: 01/08/25 11:42 Last Admin: 01/08/25 12:03 Dose: 20 mg Documented By: DO Hydromorphone HCl (Hydromorphone Inj 2 Mg/Ml Vial) 1 mg IVP X1 ONE Stop: 01/08/25 15:47 Last Admin: 01/08/25 16:46 Dose: Not Given Documented By: DO Non-Admin Reason: Cancelled by Provider Sodium Chloride (Ns) 1,000 mls @ 999 mls/hr IV .Q1H1M ONE Stop: 01/08/25 16:45 Last Admin: 01/08/25 16:31 Dose: 999 mls/hr Documented By: DO Ketorolac Tromethamine (Ketorolac Inj 30 Mg/Ml Vial) 30 mg IVP X1 ONE Stop: 01/08/25 11:39 Last Admin: 01/08/25 12:02 Dose: 30 mg Documented By: DO Morphine Sulfate (Morphine Sulf Inj 10 Mg/Ml Vial) 4 mg IVP X1 ONE Stop: 01/08/25 14:56 Last Admin: 01/08/25 15:19 Dose: 4 mg Documented By: TM Morphine Sulfate (Morphine Sulf Inj 10 Mg/Ml Vial) 6 mg IVP X1 ONE Stop: 01/08/25 15:48 Last Admin: 01/08/25 16:33 Dose: 6 mg Documented By: DO Nifedipine (Nifedipine 10 Mg Capsule) 20 mg PO X1 ONE Stop: 01/08/25 11:39 Last Admin: 01/08/25 12:02 Dose: 20 mg Documented By: DO Nifedipine (Nifedipine 10 Mg Capsule) 20 mg PO X1 ONE Stop: 01/08/25 12:11 Nifedipine, morphine, Toradol, and IV fluids for hydration Consultations Consultation(s) initiated? (list below): No Diagnosis Differential diagnosis abdominal pain: abdominal pain, pancreatitis and small bowel obstruction Most likely diagnosis given after review of the tests above:: Abdominal pain Admission Indicated Admission indicated?: not indicated Admission Request Was there a request for admission?: No Disposition Plan Disposition Plan: Discharge Discharge Attestation Discharge Attestation: The patient was given an opportunity to ask questions and understood the discharge instructions. Discharge instructions specifically effects, indications for sooner follow up or return to the emergency department, and the expected course of current diagnosis. Patient condition: Stable Discharge Plan Plan Patient Disposition: HOME (Self Care) Disposition Comment: Stable Prescriptions/Referrals Prescriptions/Med Rec: No Action prednisone 20 mg tablet 20 mg PO QDAY Rx Instructions: pt takes only when he needs it allopurinol 100 mg tablet 100 mg PO QDAY hydrocodone-acetaminophen 10-325 mg tablet 1 tab PO BID PRN (Reason: Pain) ergocalciferol (vitamin D2) 1,250 mcg (50,000 unit) capsule 1,250 mcg PO QWEEK Rx Instructions: took on lisinopril 20 mg tablet 10 mg PO BID Patient Comments: TAKE 2 TABLETS BY MOUTH EVERY DAY Rx Instructions: Patient states he only takes as needed when BP really bad. quetiapine 25 mg tablet 25 mg PO PRN PRN (Reason: Sleep) omeprazole 20 mg Capsule,Delayed Release(Dr/Ec) 20 mg PO QDAY Referrals: Ramon Lainez [Primary Care Provider] - In 1 week Problem List Clinical Impression: Abdominal pain Patient/Caregiver Discharge Instructions Discharge Activity: activity as tolerated Education Materials: Abdominal Pain Additional Instructions: Thank you for the opportunity for serving you today. You are stable for discharged . You are advised to: Follow-up with your PCP in 1 to 2 days Return to ED for worsening of symptoms Increase oral fluids Take your [place] as needed for pain Print Language: Faroese Stand Alone Forms: Shona Award Info., Patient Portal Info Letter PA/SODA TESTER Supervising Physician CHARAN/SCOTT Supervising Physician: MD Kaylee
[2025-01-08 12:00] VITALS: BP 189/109; PULSE 72; RESP 19; TEMP 36.9; O2SAT 100
[2025-01-08 12:02] VITALS: BP 189/109; PULSE 65
[2025-01-08] MEDS: KETOROLAC INJ 30 MG/ML VIAL IVP (12:02)
[2025-01-08] MEDS: NIFEdipine 10 MG CAPSULE 20 MG PO (12:02)
[2025-01-08] MEDS: FAMOTIDINE INJ 10 MG/ML VIAL 2 ML 20 MG IVP (12:03)
[2025-01-08 14:00] VITALS: BP 142/83; PULSE 86; RESP 17; TEMP 36.7; O2SAT 100
[2025-01-08] MEDS: MORPHINE SULF INJ 10 MG/ML VIAL 4 MG IVP (15:19)
[2025-01-08] MEDS: SODIUM CHLORIDE 0.9% 1000 ML 1,000 ML 999 ML IV (16:31)
[2025-01-08] MEDS: MORPHINE SULF INJ 10 MG/ML VIAL 6 MG IVP (16:33)
--- NOTE | 2025-01-08 17:56 | EVENTNT_ITS ---
Documentation for date of: 01/08/25
--- NOTE | 2025-01-08 17:56 | PD.RESEVENT ---
Documentation for date of: 01/08/25
[2025-01-08 18:01] VITALS: BP 149/95; PULSE 96; RESP 18; TEMP 36.6; O2SAT 98
--- NOTE | 2025-01-08 18:14 | PD.RESEVENT ---
Documentation for date of: 01/08/25 Event Note Event Note: A 44-year-old male with significant past medical history of hypertension, gout, chronic pancreatitis with pseudocyst, history of splenic laceration s/p coiling, splenic hematoma, resolving presented to the hospital with chief complaints of left abdominal discomfort since 3 days. Denied vomitings, nausea, fever, radiation of the pain Vitals at the time of admission are blood pressure 182/117 mmHg, pulse rate 84 bpm, respiratory rate 18/min, temperature 98.6 ?F, SpO2 99% with room air. Labs showed hemoglobin 10.6, WBC 10.3, platelets 361, CMP is within normal limits, lipase 58. CT abdomen/pelvis showed marked decrease in size of subcapsular splenic hematoma with interval embolization coils and suspicion for mild pancreatitis. On examination, there is minimal tenderness in the epigastric, hypogastric areas. Patient appears resting comfortably on the bed and is able to tolerate oral diet well. As patient's symptoms is not that consistent with pancreatitis, lipase limits are not elevated, and imaging is also suspicious for mild pancreatitis, there is no need for admission as of now. Patient encourage oral hydration. Patient can be discharged home. Return to ED precautions were given. Patient plan of care was discussed with the attending physician, Dr. Griggs and senior resident Dr. Jenni Moss, PGY1
== END 2025-01-08 18:02 | disposition home or self-care (01) ==
PROVIDERS: Nurse Practitioner Primary Care; Emergency Provider Emergency Medicine; PCP Physician Assistant
DX: S36.021A Major contusion of spleen, initial encounter (principal); X58.XXXA Exposure to other specified factors, initial encounter; R94.31 Abnormal electrocardiogram [ECG] [EKG]
CPT/HCPCS: 36415; 74177; 80053; 80320; 81001; 83690; 83735; 84484; 85025; 85610; 93005; 96361; 96374; 96375; 99284; A4649; J1885; J2270; J3490; J7030; Q9967; A9270; G0480

== ENCOUNTER 2025-05-21 14:36 | Inpatient (IN) | payer MEDICAID, SELFPAY ==
[2025-05-21] VITALS (11 sets, daily range): BP systolic 155–209; BP diastolic 99–114; PULSE 60–83; RESP 16–99; TEMP 36.7–37.2; O2SAT 96–100; BMI 22.4
--- NOTE | 2025-05-21 15:01 | EKG_ITS ---
[facility] Test Date: 2025-05-21 Pat Name: BRAYAN NANCE Department: Room: - Gender: Male Source Inspector: : [id number] Requested By: Chela Lewis Order Number: [id number] Reading MD: Chela Lewis Measurements Intervals [place] Rate: 56 P: 60 WI: 118 QRS: 59 QRSD: 101 T: 67 QT: 442 QTc: 427 Interpretive Statements SINUS BRADYCARDIA WITH SHORT WI INTERVAL Compared to ECG 01/08/2025 09:05:07 Short WI interval now present Sinus rhythm no longer present /store/S0/[id number]/ecg/[id number].pdf
--- NOTE | 2025-05-21 15:03 | XR_ITS ---
Examination: CT abdomen with intravenous contrast CT pelvis with intravenous contrast 2-D coronal reconstructions 2-D sagittal reconstructions Date and time of exam:May 21, 2025, 1727 hours, comparison January 08, 2025 INDICATIONS: Epigastric pain nausea history pancreatitis, history splenic hematoma with embolization coils on CT study January 08, 2025. CTDI: vol (mGy) 6.27 DLP: (mGycm) 371 Technique: Multiple axial sections of the abdomen and pelvis have been obtained. 64 slice high-resolution scanner used. 3 mm axial sections have been obtained, post intravenous injection 60 cc Isovue-370 2-D sagittal, coronal reconstructions obtained. Low dose protocols were performed. One or more of the following dose reduction techniques were used; automated exposure control, adjustment of the mA and/or KV according to patient size, use of iterative reconstruction technique. Findings: Mild enlargement cardiac contour Lateral is again depicted, maximum thickness 35 mm compared to 37 mm on the prior study Subcapsular fluid at the medial subcapsular hematoma, medial subcapsular hematoma is more prominent, axial image 67, measuring 21 mm in thickness compared to 12 mm on January 08, 2025 exam Numerous splenic embolization coils There is edema around the pancreas Absent gallbladder No hydronephrosis No pancreatic pseudocyst Aorta normal size Normal appendix No bowel obstruction Colonic diverticulosis Urinary bladder intact Chronic stable compression L1 IMPRESSION: Subscapular splenic hematoma again noted, the medial portion of the hematoma measures 21 mm in thickness compared to 12 mm on the January 08, 2025 exam, suggest continued follow-up Acute pancreatitis, no pseudocyst
--- NOTE | 2025-05-21 15:04 | PD.EDABDPN ---
ED Abdominal Pain RME/HPI General Chief Complaint: Abdominal Pain Stated complaint: Abdominal pain, vomiting Time seen by provider: 05/21/25 14:53 Arrival date/time: 05/21/25 14:36 RME / HPI RME / HPI narrative: 44-year-old male patient with history of hypertension, history of pancreatitis in the past, came in for evaluation regarding epigastric pain. Onset of symptoms since earlier today as sudden onset of epigastric pain, associated with vomiting, pain described as sharp pain, severity 10 out of 10. Patient was also noted to have elevated blood pressure above 190 systolic. Patient took his lisinopril today. Patient denies any alcohol abuse or drug abuse. Related Data Home Medications ?Medication ?Instructions ?Recorded ?Confirmed lisinopril 20 mg tablet 10 mg PO BID 08/10/23 11/15/24 quetiapine 25 mg tablet 25 mg PO PRN PRN Sleep 04/14/24 11/15/24 allopurinol 100 mg tablet 100 mg PO QDAY 06/27/24 11/15/24 ergocalciferol (vitamin D2) 1,250 1,250 mcg PO QWEEK 06/27/24 11/15/24 mcg (50,000 unit) capsule hydrocodone 10 mg-acetaminophen 1 tab PO BID PRN Pain 06/27/24 11/15/24 325 mg tablet prednisone 20 mg tablet 20 mg PO QDAY 06/27/24 11/15/24 Held on 11/20/24. Instructions: Resume on 12/04/24. Hold until you see your PCP omeprazole 20 mg capsule,delayed 20 mg PO QDAY 08/08/24 11/15/24 release Allergies Allergy/AdvReac Type Severity Reaction Status Date / Time No Known Allergies Allergy Verified 05/21/25 14:39 Review of Systems Review of Systems Narrative Review of Systems: Review of system reviewed and within normal limits except mentioned in HPI ED Exam Narrative Physical exam: VITAL SIGNS: Reviewed. GENERAL APPEARANCE: Alert and interactive, follows commands, no acute distress, HEAD AND FACE: Non-traumatic. ENT: PERRL, pink conjunctivitis, eyelid no trauma, Mucous membrane moist. NECK: Supple, nontender, no nuchal rigidity. CHEST: No tenderness, no crepitus, no paradoxical movement, no retractions. LUNGS: Clear, well ventilated, symmetric, no rales, no wheezing, no ronchi, no stridor, good breath sounds bilaterally. HEART: Regular rate, regular rhythm, no murmur, no gallops. ABDOMEN: Soft, positive bowel sounds, nondistended, no guarding, diffuse abdominal tenderness, no rebound, no masses, RECTAL: Deferred. GENITAL: Deferred. NEUROLOGICAL: Gross motor function intact sensory function intact, Appropriate for age. MUSCULOSKELETAL: low back nontender, full range of motion. EXTREMITIES: Nontender, full range of motion. SKIN: Color pink, dry, no rash, no lacerations, no abrasions, no contusions. LYMPHATICS: Deferred. Course Quality Measures none Orders Category Date Time Status COVID-19 Screening Questionnaire NOW Care 05/21/25 18:[address] Screening NOW Care 05/21/25 15:03 Active Decision to Admit X1 Care 05/21/25 18:06 Active EKG (ED ONLY) *Do not use* NOW Care 05/21/25 15:01 Completed Insert IV NOW Care 05/21/25 16:[address] abdomen pelvis w con Stat Exams 05/21/25 15:03 Completed EKG (ED Only) Stat Exams 05/21/25 15:01 Draft Alcohol, Blood Medical Stat Lab 05/21/25 15:25 Completed CBC Stat Lab 05/21/25 15:25 Completed Comprehensive Metabolic Panel Stat Lab 05/21/25 15:25 Completed Drug Screen,Urine Stat Lab 05/21/25 17:48 Received Lipase Stat Lab 05/21/25 15:25 Completed Lipid Panel Stat Lab 05/21/25 15:25 Completed Prothrombin Time with INR Stat Lab 05/21/25 16:05 Completed HYDROmorphone INJ [Dilaudid Inj] Med 05/21/25 16:54 Discontinued 1 mg IVP X1 ONE Metoclopramide Inj [Reglan Inj] Med 05/21/25 16:54 Discontinued 10 mg IVP X1 ONE Morphine Inj Med 05/21/25 15:01 Discontinued 4 mg IVP X1 ONE Ondansetron Inj [Zofran Inj] Med 05/21/25 15:01 Discontinued 4 mg IVP X1 ONE Sodium Chloride 0.9% 1000 ml [Ns] 1,000 ml Med 05/21/25 16:54 Discontinued IV 999 mls/hr hydrALAZINE INJ [Apresoline Inj] Med 05/21/25 15:01 Discontinued 10 mg IVP X1 ONE Vital Signs Vital signs: Vital Signs Temperature 98.1 F 05/21/25 14:51 Pulse Rate 63 05/21/25 14:51 Respiratory Rate 20 05/21/25 14:51 Blood Pressure 200/110 H 05/21/25 14:51 Pulse Oximetry (%) 99 05/21/25 14:51 Oxygen Delivery Method Room Air 05/21/25 14:51 Abdominal Pain [facility] Narrative [facility] Narrative:: 44-year-old male patient with history of hypertension, history of pancreatitis in the past, came in for evaluation regarding epigastric pain. Onset of symptoms since earlier today as sudden onset of epigastric pain, associated with vomiting, pain described as sharp pain, severity 10 out of 10. Patient was also noted to have elevated blood pressure above 190 systolic. Patient took his lisinopril today. Patient denies any alcohol abuse or drug abuse. EKG showed sinus bradycardia, ventricular rate of 56 bpm, no ST segment ovation depression noted. CT scan of the abdomen showed acute pancreatitis with no pseudocyst, patient is still have subscapular splenic hematoma. Patient's lipase today was noted to be 423. Was also noted to have leukocytosis of 17.6. Patient received IV fluids, IV morphine, Zofran, Reglan, and IV Dilaudid with significant provide of pain. Discussed with hospitalist, who admitted the patient. Patient data External records reviewed:: None Clinical information provided by:: patient and family Social determinants that could affect healthcare access:: none Patient has the following chronic illnesses:: History of pancreatitis in the past, history of subscapular hematoma in the past How is presenting disease/condition affected by chronic disease/condition?: exacerbated by Evaluation data The following diagnostics were reviewed and interpreted by me:: lab results, radiology exam(s) and EKG tracing(s) Lab and/or radiology exams considered but not ordered:: None Interpretation Summary: See results [facility] Medications / Prescriptions Medications or Prescriptions considered but not ordered:: None Medication administrations:: Medication Administration History Discontinued Medications Hydralazine HCl (Hydralazine Inj 20 Mg/Ml Vial) 10 mg IVP X1 ONE Stop: 05/21/25 15:02 Last Admin: 05/21/25 16:36 Dose: 10 mg Documented By: DAVID Hydromorphone HCl (Hydromorphone Inj 2 Mg/Ml Vial) 1 mg IVP X1 ONE Stop: 05/21/25 16:55 Last Admin: 05/21/25 17:03 Dose: 1 mg Documented By: DB Sodium Chloride (Ns) 1,000 mls @ 999 mls/hr IV .Q1H1M ONE Stop: 05/21/25 17:54 Last Admin: 05/21/25 17:04 Dose: 999 mls/hr Documented By: DB Metoclopramide HCl (Metoclopramide Inj 5 Mg/Ml Vial 2 Ml) 10 mg IVP X1 ONE; Protocol Stop: 05/21/25 16:55 Last Admin: 05/21/25 17:05 Dose: 10 mg Documented By: DB Morphine Sulfate (Morphine Sulf Inj 10 Mg/Ml Vial) 4 mg IVP X1 ONE Stop: 05/21/25 15:02 Last Admin: 05/21/25 15:36 Dose: 4 mg Documented By: EF Ondansetron HCl (Ondansetron Inj 2 Mg/Ml Inj 2 Ml) 4 mg IVP X1 ONE; Protocol Stop: 05/21/25 15:02 Last Admin: 05/21/25 15:36 Dose: 4 mg Documented By: EF Reglan morphine, Zofran, IV fluids, Dilaudid, hydralazine IV Consultations Consultation(s) initiated? (list below): No Diagnosis Differential diagnosis abdominal pain: abdominal pain, constipation and pancreatitis Most likely diagnosis given after review of the tests above:: Pancreatitis Admission Indicated Admission indicated?: indicated Admission Request Was there a request for admission?: Yes Admission Attestation Admission request attestation: Discussed case with [Dr. Kam] from Hospitalist service regarding admission. Discussed patients ED course, exam findings, labs, and radiology results. The Hospitalist [agree] to accept the patient for admission. Disposition Plan Disposition Plan: Admit Discharge Plan Plan Patient Disposition: Admit Acute Care w/in Hospital Prescriptions/Referrals Prescriptions/Med Rec: No Action prednisone 20 mg tablet 20 mg PO QDAY Rx Instructions: pt takes only when he needs it allopurinol 100 mg tablet 100 mg PO QDAY hydrocodone-acetaminophen 10-325 mg tablet 1 tab PO BID PRN (Reason: Pain) ergocalciferol (vitamin D2) 1,250 mcg (50,000 unit) capsule 1,250 mcg PO QWEEK Rx Instructions: took on lisinopril 20 mg tablet 10 mg PO BID Patient Comments: TAKE 2 TABLETS BY MOUTH EVERY DAY Rx Instructions: Patient states he only takes as needed when BP really bad. quetiapine 25 mg tablet 25 mg PO PRN PRN (Reason: Sleep) omeprazole 20 mg Capsule,Delayed Release(Dr/Ec) 20 mg PO QDAY Referrals: Ramon Lainez [Primary Care Provider] - In 1 week Problem List Clinical Impression: Acute pancreatitis, Abdominal pain Patient/Caregiver Discharge Instructions Discharge Activity: activity as tolerated Education Materials: ED Pancreatitis Print Language: Italian Stand Alone Forms: Shona Award Info., Patient Portal Info Letter
[2025-05-21] MEDS: MORPHINE SULF INJ 10 MG/ML VIAL 4 MG IVP (15:36)
[2025-05-21] MEDS: ONDANSETRON INJ 2 MG/ML INJ 2 ML 4 MG IVP (15:36)
[2025-05-21 15:48] LABS: Basophils # (Auto) 0.0 Thou/mm3 (0.0-0.2); Basophils % (Auto) 0 % (0-2.5); Eosinophils # (Auto) 0.0 Thou/mm3 (0.0-0.5); Eosinophils % (Auto) 0 % (0-10); Hematocrit 38.7 % (41.0-53.0); Hemoglobin 12.2 g/dL (13.5-16.0); Immature Granulocytes Auto 0.08 Thou/mm3 (0.00-0.00); Lymphocytes # (Auto) 0.8 Thou/mm3 (1.0-4.8); Lymphocytes % (Auto) 5 % (10-50); Mean Corpuscular HGB Conc 31.5 g/dl (31.0-37.0); Mean Corpuscular Hemoglobin 29.8 pg (25.0-35.0); Mean Corpuscular Volume 95 fL (80-100); Monocytes # (Auto) 1.2 Thou/mm3 (0.0-0.8); Monocytes % (Auto) 7 % (0-12); Neutrophils # (Auto) 15.5 Thou/mm3 (1.8-7.7); Neutrophils % (Auto) 88 % (37-80); Nucleated Red Blood Cell # 0.00 Thou/mm3 (0.00-0.00); Nucleated Red Blood Cell % 0 /100 WBC (0); Platelet Count 330 Thou/mm3 (140-440); RDW Standard Deviation 55.8 fL (35.1-43.9); Red Blood Count 4.09 Miln/mm3 (4.50-5.90); White Blood Count 17.6 Thou/mm3 (3.8-10.6)
[2025-05-21 16:29] LABS: Alanine Aminotransferase 60 U/L (10-49); Albumin, Serum 4.2 gm/dL (3.5-5.0); Albumin/Globulin Ratio 1.6 (1.2-2.2); Alcohol, Blood Medical < 3.0 mg/dL (0-10.0); Alkaline Phosphatase 184 U/L (46-116); Anion Gap 13 (7-16); Aspartate Amino Transferase 138 U/L (0-34); BUN/Creatinine Ratio 14 Ratio (12-20); Bilirubin,Total 0.6 mg/dL (0.3-1.2); Blood Urea Nitrogen 10 mg/dL (9-23); Calcium 9.5 mg/dL (8.3-10.6); Calcium (Corrected) 9.5 mg/dL (8.5-10.1); Carbon Dioxide 20.8 mMol/L (20.0-31.0); Cardiac Risk Estimate 2.5 RATIO (4.0-6.7); Chloride 109 mMol/L (98-107); Cholesterol 213 mg/dL (132-200); Creatinine (Component) 0.7 mg/dL (0.6-1.3); Globulin 2.7 gm/dL (2.3-3.5); Glucose 116 mg/dL (74-106); HDL Cholesterol 85 mg/dL (40-60); LDL Cholesterol,Calculated 101 mg/dL (0-130); Lipase 423 U/L (12-53); Osmolality,Calculated 284 (275-295); Potassium 3.8 mMol/L (3.4-5.1); Sodium 143 mMol/L (136-145); Total Protein 6.9 gm/dL (5.7-8.2); Triglycerides 137 mg/dL (30-150); eGFR > 60 See Note
[2025-05-21 16:35] LABS: INR 1.0 (0.9-1.3); Prothrombin Time 10.9 Seconds (9.0-12.2)
[2025-05-21] MEDS: hydrALAZINE INJ 20 MG/ML VIAL 10 MG IVP ×2 (16:36→21:37)
[2025-05-21] MEDS: HYDROmorphone INJ 2 MG/ML VIAL 1 MG IVP (17:03)
[2025-05-21] MEDS: SODIUM CHLORIDE 0.9% 1000 ML 1,000 ML 999 ML IV (17:04)
[2025-05-21] MEDS: METOCLOPRAMIDE INJ 5 MG/ML VIAL 2 ML 10 MG IVP (17:05)
--- NOTE | 2025-05-21 18:06 | EVENTNT_ITS ---
Documentation for date of: 05/21/25 Event Note Event Note: 44-year-old male with past medical history of hypertension, gout, chronic pancreatitis with pseudocyst, history of splenic laceration status post coiling, splenic hematoma presented to hospital today with a chief complaint of ep igastric pain, patient describes pain as sharp associated with vomiting 10/10. Patient's lipase noted to be elevated at 423. CT abdomen pelvis shows acute pancreatitis, no pseudocyst. Subcapsular splenic hematoma noted which has increased in thickness compared to old CT. Patient complaining of significant pain, did have significantly elevated blood pressure, was called by emergency department at 0605 p.m., will sign out patient to night team for admission. Of note increase in size of subcapsular splenic hematoma we reccommend General Surgery Consult prior to admission. Case discussed with Attending Physician Dr. Stephany SANCHEZ. Rhonda Kam MD Internal Medicine PGY-2 Disclaimer: This note was dictated by speech recognition. Minor errors in financial retirement plan specialist may be present due to voice recognition software.
[2025-05-21 18:36] LABS: Amphetamine/Methamp Scrn,U Negative (Negative); Barbiturate Screen,Urine Negative (Negative); Benzodiazepines Screen,Urine Negative (Negative); Benzoylecgonine Screen, Ur Negative (Negative); Fentanyl Screen,Urine Negative (Negative); Opiate Screen,Urine Positive (Negative); THC Screen,Urine Negative (Negative)
--- NOTE | 2025-05-21 20:26 | ESHP_ITS ---
Documentation for date of: 05/21/25 [facility] History of Present Illness Chief complaint: Abdominal pain and vomiting History of present illness: 44-year-old male with PMH of HTN, gout, chronic pancreatitis with pseudocyst, prior splenic laceration s/p coiling with subcapsular hematoma, and prior GI bleed presents with severe epigastric abdominal pain and vomiting, found to have acute pancreatitis and stable subcapsular splenic hematoma. Patient reports sudden onset epigastric pain that began yesterday, progressively worsening overnight. Pain is sharp, constant, currently 8/10, localized to the epigastrium and LUQ, radiating to the flank but not yet to the back or shoulder. He states pain feels similar to his prior pancreatitis flares. He vomited twice today?first episode contained food, second was small volume without blood. He denies hematemesis. He describes dark stools but attributes this to iron supplementation; he denies hematochezia. He denies dizziness, syncope, new shoulder pain, or recent trauma. He endorses transient diaphoresis with vomiting. No fevers or chills reported. He describes mild chest burning and discomfort beneath ribs with deep inspiration, occasionally associated with shortness of breath. Denies urinary changes. No recent unintentional weight loss. Last alcohol and illicit drug use was in September; denies current use. Denies recent NSAID use. He identifies chili/spicy food as a dietary trigger. Review of Systems (ROS): * Constitutional: No fevers, chills, or weight loss. * GI: Severe epigastric pain, nausea/vomiting, dark stools, no hematemesis or hematochezia. * CV: Mild chest burning, no palpitations. * Pulm: Mild SOB with deep breaths. * : No dysuria or hematuria. * Neuro: No dizziness, syncope, focal deficits. * MSK: No new joint pain. * Skin: No rashes or bruising noted. Past Medical History: * Hypertension * Gout * Chronic pancreatitis with pseudocyst * Splenic laceration s/p embolization/coiling (2022) --> subcapsular hematoma (stable but recurrent) * Prior GI bleed (Oct 2024) requiring PRBCs and octreotide infusion * Gastritis, esophagitis, portal hypertensive gastropathy/varices * Insomnia Past Surgical History: * Splenic artery coiling post-trauma * Cholecystectomy Home Medications: * Lisinopril 20 * Creon (pancreatic enzymes) * PRN gout meds: prednisone and colchicine (not used in past 1?2 months) * Allopurinol (rarely takes) * Seroquel 25 mg nightly for sleep (per previous charts) * Narco (hydrocodone/acetaminophen) PRN for pain * Recently taking iron supplements and multivitamins Allergies: * NKDA Family History: * Noncontributory per patient Social History: * Lives with * Former alcohol use (stopped Sep 2024) * Prior cocaine use (last Sep 2024) * Never smoker * Works in agriculture Exam Vital Signs Temp Pulse Resp BP Pulse Ox O2 Del Method 98.9 F 73 18 182/104 H 99 Room Air 05/21/25 19:51 05/21/25 19:51 05/21/25 19:51 05/21/25 19:51 05/21/25 19:51 05/21/25 19:51 Narrative Exam General: Alert, interactive, appears in pain but nontoxic. HEENT: MMM, no icterus. Neck: Supple. CV: RRR, no murmurs. Lungs: Clear bilaterally, no wheezes/rales. Abdomen: Soft, nondistended. Marked tenderness in epigastrium and LUQ with guarding, no rebound. No palpable masses. Splenic area tender but not acutely peritoneal. Extremities: No edema. Neuro: AOx3, intact motor/sensory. Skin: Warm, dry. No bruising or jaundice. Results: Labs 05/21/25 15:25 05/21/25 15:25 Labs: Short CBC 05/21/25 Range/Units 15:25 WBC 17.6 H (3.8-10.6) Thou/mm3 Hgb 12.2 L (13.5-16.0) g/dL Hct 38.7 L (41.0-53.0) % Plt Count 330 (140-440) Thou/mm3 BMP 05/21/25 15:25 Sodium 143 Potassium 3.8 Chloride 109 H Carbon Dioxide 20.8 BUN 10 Creatinine 0.7 Glucose 116 H Calcium 9.5 Liver Function 05/21/25 Range/Units 15:25 Total Bilirubin 0.6 (0.3-1.2) mg/dL AST 138 H (0-34) U/L ALT 60 H (10-49) U/L Alkaline Phosphatase 184 H (46-116) U/L Albumin 4.2 (3.5-5.0) gm/dL Quality Measures Quality Measures VTE prophylaxis Medications Home Medications and Allergies Home Medications ?Medication ?Instructions ?Recorded ?Confirmed ?Type lisinopril 20 mg tablet 10 mg PO BID 08/10/23 History quetiapine 25 mg tablet 25 mg PO PRN PRN Sleep 04/1411/15/24 History allopurinol 100 mg tablet 100 mg PO QDAY 06/27/2410/26 History ergocalciferol (vitamin D2) 1,250 1,250 mcg PO QWEEK 1 11/15/24 History mcg (50,000 unit) capsule hydrocodone 10 mg-acetaminophen 1 tab PO BID PRN Pain 06/27/24 11/15/24 History 325 mg tablet prednisone 20 mg tablet 20 mg PO QDAY 06/27/2411/15 History Held on 11/20/24. Instructions: Resume on 12/04/24. Hold until you see your PCP omeprazole 20 mg capsule,delayed 20 mg PO QDAY 4 11/15/24 History release Allergies Allergy/AdvReac Type Severity Reaction Status Date / Time No Known Allergies Allergy Verified 05/21/25 14:39 Visit Medications Discontinued Medications Hydralazine HCl (Hydralazine Inj 20 Mg/Ml Vial) 10 mg IVP X1 ONE Stop: 05/21/25 15:02 Last Admin: 05/21/25 16:36 Dose: 10 mg Hydromorphone HCl (Hydromorphone Inj 2 Mg/Ml Vial) 1 mg IVP X1 ONE Stop: 05/21/25 16:55 Last Admin: 05/21/25 17:03 Dose: 1 mg Sodium Chloride (Ns) 1,000 mls @ 999 mls/hr IV .Q1H1M ONE Stop: 05/21/25 17:54 Last Infusion: 05/21/25 18:51 Dose: Infused Metoclopramide HCl (Metoclopramide Inj 5 Mg/Ml Vial 2 Ml) 10 mg IVP X1 ONE; Protocol Stop: 05/21/25 16:55 Last Admin: 05/21/25 17:05 Dose: 10 mg Morphine Sulfate (Morphine Sulf Inj 10 Mg/Ml Vial) 4 mg IVP X1 ONE Stop: 05/21/25 15:02 Last Admin: 05/21/25 15:36 Dose: 4 mg Ondansetron HCl (Ondansetron Inj 2 Mg/Ml Inj 2 Ml) 4 mg IVP X1 ONE; Protocol Stop: 05/21/25 15:02 Last Admin: 05/21/25 15:36 Dose: 4 mg Assessment & Plan Plan 44-year-old male with HTN, gout, chronic pancreatitis, splenic laceration s/p coiling with recurrent subcapsular hematoma, prior GI bleed, and alcohol/cocaine use history presents with acute pancreatitis flare. Splenic hematoma noted to be slightly larger but stable per surgery. Admitted for pain control, IV fluids, and monitoring. # Acute pancreatitis Acute epigastric pain, elevated lipase, CT consistent with pancreatitis, no pseudocyst. Likely dietary trigger (spicy food). Hemodynamically stable, no signs of shock. Plan: * Admit to med tele * Diet: Clear liquids per patient request, advance as tolerated * Already received 1 L NS bolus in ED * Continue LR at 100 mL/hr (1.5 mL/kg/hr for 65 kg) * Per W[facility] trial ([facility] 2021), aggressive fluid resuscitation increased risk of fluid overload without improving outcomes * Moderate strategy preferred with frequent reassessment (UOP, BUN/Cr, Hct, exam). * Pain control as ordered PRN (tylenol, norco and dilauded for severe) * Zofran PRN * Daily CMP, Mg/Phos, CBC * Strict I/O * Monitor for complications (necrosis, pseudocyst, ARDS, shock) # Subcapsular splenic hematoma Chronic, stable CT shows mild interval increase but reviewed by surgery who advised no intervention and outpatient follow-up. Plan: * No acute intervention * Hold anticoagulation/DVT chemoprophylaxis --> use SCDs only * Monitor H/H daily * Outpatient repeat imaging as recommended by surgery * Educate patient on red-flag symptoms (worsening LUQ pain, dizziness, syncope) # Leukocytosis WBC 17.6, likely reactive to pancreatitis. Afebrile, no systemic signs of infection. Plan: * Daily CBC * Monitor for fever or infectious source * No empiric antibiotics at this time # Hypertension, poorly controlled Systolic >190 in ED, likely pain-driven. Took lisinopril this morning. Plan: * Resume home lisinopril once med recs are back * Monitor BP closely * PRN IV hydralazine SBP >190 * Reassess once pain improves # History of GI bleed / portal hypertensive gastropathy / esophageal varices Stool reported as dark but may be due to iron supplementation. Hb stable at 12.2. Plan: * Daily H/H * IV PPI (Protonix) while inpatient * Monitor stools for melena/hematochezia # Chronic gout No current flare. Not adherent with therapy. Plan: * Hold prednisone and colchicine during admission * No intervention at present # Substance use history Alcohol and cocaine last used in September 2024. Utox positive for opioids (likely from prescribed narcotics). Plan: * Agriculture Scientist regarding alcohol and drug abstinence * Monitor pain regimen and limit opioid exposure as possible # Insomnia Per previous chart patient takes Seroquel 25 mg nightly at home. But in interview patient did not mention Plan: * Will resume as appropriate if patient requests Health Maintenance: Disposition: Admit to medicine for supportive care of acute pancreatitis Diet: Clear liquids, advance as tolerated Lines: PIV DVT prophylaxis: SCDs only (no anticoagulation due to previous GI bleeds) GI prophylaxis: IV PPI Code status: Full code ----- Plan discussed with attending physician Dr. Sunni Downs MD PGY-1 Internal Medicine Attending Provider Attestation/Addendum After examination of the patient and review of the clinical data I feel that this patient needs admission to the hospital for further treatment/evaluation. I have discussed and was present for the essential components of the history, physical examination, diagnosis, and treatment plan with the resident. I agree with the patient's care as documented by the resident and amended herein by me. Antonio Moeller DO. Although this document has been carefully reviewed, there may still be some phonetic and other typographical errors. These errors are purely grammatical due to imperfections in the software program and should not be construed in any way to compromise the substance of the patient's medical care during this visit. Patient seen and evaluated in the ED. In short, 44-year-old male with a significant past medical history of hypertension, gout, chronic pancreatitis with pancreatic pseudocyst, splenic subcapsular hematoma status post splenic artery coiling, former alcohol abuse, former methamphetamine abuse and portal hypertension with associated esophageal varices presented to the ED with epigastric pain which began earlier today prior to admission, sudden onset, he did endorse vomiting, describes the pain as very sharp with a severity of 10 out of 10. In the ED, initial BP 200/110 mmHg, at site of bedside visit 182/104 mmHg, rest of vital signs are stable, significant labs included WBC 17.6, hemoglobin 12.2 which is up from prior visit, AST 138, ALT 60, alk phos 184 and T. bili 0.6. Triglyceride level 137 and lipase 423. U tox positive for opiates however this is most likely from the ED. Rest of U-Tox is negative. CT abdomen and pelvis was performed demonstrating a subscapular splenic hematoma measuring 21 mm in thickness. The read states as compared to 12 mm on 08 January 2025 however the read on that date shows a size of the hematoma as being 20 mm. We did have the ED call Dr Garcia to clarify this and he stated there in fact is minimal change in the size of the hematoma and recommends outpatient follow-up imaging. CT also demonstrates of course acute pancreatitis with no pseudocyst noted. There is also numerous splenic embolization coils visualized. Patient subsequently admitted to [facility], started on IVF LR 150 mL/h, general surgery was initially consulted for the hematoma in the ED however I do not feel we need general surgery at this time hence we will cancel the consult as it appears relatively stable. Liver ultrasound has been ordered due to the fact the patient's liver enzymes are slightly elevated this admission as compared to previous admissions. Home meds will be resumed as appropriate, pain control on board and surprisingly the patient already wants some soup which is a good sign, hence we will try liquid diet for now. Will continue to monitor closely
--- NOTE | 2025-05-21 20:26 | XR_ITS ---
Examination: Abdomen sonogram, Limited Date and time of exam: May 21, 2025, 2040 hours INDICATIONS: Epigastric pain beginning 2 days ago, elevated liver function tests on laboratory examination today Technique: Real-time meeks scale transabdominal sonographic images of the upper abdomen obtained. Findings: Absent gallbladder Common bile duct 0.9 cm no definite stones Pancreatic head 2.7 cm Liver 15.0 cm fatty infiltration Normal hepatopedal portal venous flow Patent IVC IMPRESSION: Common bile duct 0.9 cm, no definite stones If biliary colic is a clinical consideration, suggest MRCP follow-up
[2025-05-21] MEDS: RINGERS LACTATED 1000 ML 1,000 ML 100 ML IV (20:58)
[2025-05-21] MEDS: HYDROmorphone INJ 2 MG/ML VIAL 0.5 MG IVP (20:58)
--- NOTE | 2025-05-21 21:34 | PC.NURSE ---
Per MD stated okay to give patient hydralazine 10mg at this time with B/P 183/102.
[2025-05-21] MEDS: HYDROcodone/APAP 5/325 TABLET 1 TAB PO (23:18)
[2025-05-22] VITALS (15 sets, daily range): BP systolic 149–182; BP diastolic 80–116; PULSE 68–97; RESP 16–99; TEMP 36.3–36.7; O2SAT 99–100
[2025-05-22] MEDS: HYDROmorphone INJ 2 MG/ML VIAL 0.5 MG IVP ×6 (00:57→21:31)
[2025-05-22] MEDS: HYDROcodone/APAP 5/325 TABLET 1 TAB PO ×3 (03:35→19:54)
[2025-05-22 07:00] LABS: Basophils # (Auto) 0.0 Thou/mm3 (0.0-0.2); Basophils % (Auto) 0 % (0-2.5); Eosinophils # (Auto) 0.0 Thou/mm3 (0.0-0.5); Eosinophils % (Auto) 0 % (0-10); Hematocrit 35.2 % (41.0-53.0); Hemoglobin 11.0 g/dL (13.5-16.0); Immature Granulocytes Auto 0.05 Thou/mm3 (0.00-0.00); Lymphocytes # (Auto) 1.1 Thou/mm3 (1.0-4.8); Lymphocytes % (Auto) 13 % (10-50); Mean Corpuscular HGB Conc 31.3 g/dl (31.0-37.0); Mean Corpuscular Hemoglobin 29.1 pg (25.0-35.0); Mean Corpuscular Volume 93 fL (80-100); Monocytes # (Auto) 0.6 Thou/mm3 (0.0-0.8); Monocytes % (Auto) 8 % (0-12); Neutrophils # (Auto) 6.6 Thou/mm3 (1.8-7.7); Neutrophils % (Auto) 79 % (37-80); Nucleated Red Blood Cell # 0.00 Thou/mm3 (0.00-0.00); Nucleated Red Blood Cell % 0 /100 WBC (0); Platelet Count 262 Thou/mm3 (140-440); RDW Standard Deviation 55.7 fL (35.1-43.9); Red Blood Count 3.78 Miln/mm3 (4.50-5.90); White Blood Count 8.4 Thou/mm3 (3.8-10.6)
--- NOTE | 2025-05-22 07:25 | PC.NURSE ---
DR. FONTANA MADE AWARE PTS BLOOD PRESSURE 170/102 ON HIS RIGHT ARM, 182/116 ON HIS LEFT ARM, HR OF 82 AND PT REPORTS A HEADACHE. NO ORDERS GIVEN.
[2025-05-22 07:32] LABS: Alanine Aminotransferase 72 U/L (10-49); Albumin, Serum 3.8 gm/dL (3.5-5.0); Albumin/Globulin Ratio 1.6 (1.2-2.2); Alkaline Phosphatase 226 U/L (46-116); Anion Gap 8 (7-16); Aspartate Amino Transferase 86 U/L (0-34); BUN/Creatinine Ratio 13 Ratio (12-20); Bilirubin,Total 0.8 mg/dL (0.3-1.2); Blood Urea Nitrogen 8 mg/dL (9-23); Calcium 8.9 mg/dL (8.3-10.6); Calcium (Corrected) 9.1 mg/dL (8.5-10.1); Carbon Dioxide 25.6 mMol/L (20.0-31.0); Chloride 107 mMol/L (98-107); Creatinine (Component) 0.6 mg/dL (0.6-1.3); Estimated Creatinine Clearance 144.3 mL/min (>60); Globulin 2.4 gm/dL (2.3-3.5); Glucose 111 mg/dL (74-106); Magnesium 1.8 mg/dL (1.6-2.6); Osmolality,Calculated 280 (275-295); Phosphorous 3.3 mg/dL (2.4-5.1); Potassium 4.0 mMol/L (3.4-5.1); Sodium 141 mMol/L (136-145); Total Protein 6.2 gm/dL (5.7-8.2); eGFR > 60 See Note
[2025-05-22] MEDS: hydrALAZINE INJ 20 MG/ML VIAL 10 MG IVP ×2 (07:44→12:22)
[2025-05-22] MEDS: ACETAMINOPHEN 325 MG TABLET 650 MG PO ×2 (07:50→15:43)
[2025-05-22] MEDS: RINGERS LACTATED 1000 ML 1,000 ML 100 ML IV ×2 (07:51→18:43)
--- NOTE | 2025-05-22 09:31 | PC.SS ---
Vivian Mg is a 44 year old male admitted for Acute Pancreatitis. SS conducted bedside contact with the patient to complete initial assessment. Patient confirmed demographic information. Patient reports he lives at home with his , Yamileth Mg who he identifies as his surrogate decision maker [phone]. Patient is independent with all ADLs. Patient does not utilize any source of DME. [facility] of [facility]acy [facility]. will provide transport at the time of DC. Discharge Plan: Home Next of Kin: Yamileth Mg [phone] PCP: Ramon Lainez
--- NOTE | 2025-05-22 09:40 | PC.NURSE ---
PATIENT REQUIRES TRANSPORTATION NEEDS, SAADIA ARAIZA WAS MADE AWARE PT, WILL COORDINATE RIDE WHEN PT IS READY TO LEAVE.
--- NOTE | 2025-05-22 12:11 | PC.NURSE ---
DR. SANCHEZ MADE AWARE PT C/O EPIGASTRIC PAIN AFTER HE ATE REGULAR DIET 10 OUT OF A PAIN SCALE 0/10, HEADACHE, AND MADE AWARE OF RECENT BP 161/97. DC CANCEL, NO NEW ORDERS, CONTINUE TO MONITOR PATIENT.
--- NOTE | 2025-05-22 12:11 | PC.NURSE ---
PT BP (TAKEN MANUAL) 160/100, VERBAL ORDER FOR HYDRALAZINE 10 MG IV X1, ORDER RECEIVED, READ BACK, AND READ BACK.
--- NOTE | 2025-05-22 14:41 | ESPR_ITS ---
<Statement entered by Radha Bronson MD - 06/02/25 08:45> I reviewed above note and agree with findings and plans. I have also personally examined the patient with medicine team and went over assessment and plan with medical team including intern product marketing manager and resident physician. <Statement entered by Ángel Arteaga MD - 05/22/25 15:33> Senior Resident Attestation: I supervised/discussed management plan with intern product marketing manager physician Dr. Clark, and was involved in the care of this patient. I personally saw and examined the patient and discussed the assessment and plan with the entire medicine team, including my attending. I agree with the assessment and plan as documented. Patient reported abdominal pain after trial of low fat diet, will continue IV pain meds and IVF. Will adjust his BP medications as his BP remains elevated, lisinopril was increased today. Patient's care was discussed with attending physician, . Ángel Arteaga MD PGY-3. Documentation for date of: 05/22/25 Subjective Subjective Interval history: Patient developed abdominal pain after PO trial. Continues to have HTN. Increased home Lisinopril 20 mg daily to 40 mg daily. Patient evaluated at bedside. Reports continued abdominal pain. Denies N/V, diarrhea, constipation, hematemesis, hematochezia, or melena. Given hydroxyzine IV x1 this AM for HTN with sBP >190. Exam Vital Signs Temp Pulse Resp BP Pulse Ox O2 Del Method 97.4 F 77 18 161/97 H 99 Room Air 05/22/25 12:00 05/22/25 12:22 05/22/25 12:00 05/22/25 13:11 05/22/25 12:00 05/22/25 12:00 Narrative Exam General: No acute distress, well nourished Eye: PERRL, EOMI, normal conjunctiva, no scleral icterus HENT: Normocephalic, atraumatic, normal hearing, moist oral mucosa Neck: Supple, non-tender, no JVD, no lymphadenopathy Lungs: Clear to auscultation bilaterally, non-labored respirations, symmetric chest rise, no use of accessory muscles Heart: Normal S1 and S2, no S3 or S4 appreciated. Normal rate and regular rhythm, no murmurs, rubs gallops, or edema. Peripheral pulses intact bilaterally, capillary refill brisk distally Abdomen: Soft, epigastric region TTP, nondistended Musculoskeletal: Normal range of motion and strength, no tenderness or swelling Skin: Skin is warm, dry, no rashes or lesions. Neurologic: Alert, awake and oriented x3. CN II-XII grossly intact. No focal neuro deficits. No signs of meningeal irritation noted. Psychiatric: Cooperative, appropriate mood and affect Objective Labs 05/22/25 06:40 05/22/25 06:40 Labs: Laboratory Results - last 24 hr 05/21/25 05/21/25 05/21/25 15:25 16:05 17:48 WBC 17.6 H RBC 4.09 L Hgb 12.2 L Hct 38.7 L MCV 95 MCH 29.8 MCHC 31.5 RDW Std Deviation 55.8 H Plt Count 330 Neut % (Auto) 88 H Lymph % (Auto) 5 L [place] % (Auto) 7 Eos % (Auto) 0 Baso % (Auto) 0 Neut # (Auto) 15.5 H Lymph # (Auto) 0.8 L [place] # (Auto) 1.2 H Eos # (Auto) 0.0 Baso # (Auto) 0.0 Immature Gran # (Auto) 0.08 H Absolute Nucleated RBC 0.00 Immature Gran % 1 H Nucleated RBC % 0 PT 10.9 INR 1.0 Sodium 143 Potassium 3.8 Chloride 109 H Carbon Dioxide 20.8 Anion Gap 13 BUN 10 Creatinine 0.7 Estim Creat Clear Calc Not Performed. eGFR > 60 BUN/Creatinine Ratio 14 Glucose 116 H Calculated Osmolality 284 Calcium 9.5 Corrected Calcium 9.5 Phosphorus Magnesium Total Bilirubin 0.6 AST 138 H ALT 60 H Alkaline Phosphatase 184 H Total Protein 6.9 Albumin 4.2 Globulin 2.7 Albumin/Globulin Ratio 1.6 Triglycerides 137 Cholesterol 213 H LDL Cholesterol, Calc 101 HDL Cholesterol 85 H Cholesterol/HDL Ratio 2.5 L Lipase 423 H Urine Opiates Screen Positive A Urine Fentanyl Screen Negative Ur Barbiturates Screen Negative U Amphetamin/Meth Scrn Negative U Benzodiazepines Scrn Negative U Cocaine Metab Screen Negative U Marijuana (THC) Screen Negative Ethyl Alcohol < 3.0 05/22/25 06:40 WBC 8.4 D RBC 3.78 L Hgb 11.0 L Hct 35.2 L MCV 93 MCH 29.1 MCHC 31.3 RDW Std Deviation 55.7 H Plt Count 262 D Neut % (Auto) 79 Lymph % (Auto) 13 [place] % (Auto) 8 Eos % (Auto) 0 Baso % (Auto) 0 Neut # (Auto) 6.6 Lymph # (Auto) 1.1 [place] # (Auto) 0.6 Eos # (Auto) 0.0 Baso # (Auto) 0.0 Immature Gran # (Auto) 0.05 H Absolute Nucleated RBC 0.00 Immature Gran % 1 H Nucleated RBC % 0 PT INR Sodium 141 Potassium 4.0 Chloride 107 Carbon Dioxide 25.6 Anion Gap 8 BUN 8 L Creatinine 0.6 Estim Creat Clear Calc 144.3 eGFR > 60 BUN/Creatinine Ratio 13 Glucose 111 H Calculated Osmolality 280 Calcium 8.9 Corrected Calcium 9.1 Phosphorus 3.3 Magnesium 1.8 Total Bilirubin 0.8 AST 86 H ALT 72 H Alkaline Phosphatase 226 H D Total Protein 6.2 Albumin 3.8 Globulin 2.4 Albumin/Globulin Ratio 1.6 Triglycerides Cholesterol LDL Cholesterol, Calc HDL Cholesterol Cholesterol/HDL Ratio Lipase Urine Opiates Screen Urine Fentanyl Screen Ur Barbiturates Screen U Amphetamin/Meth Scrn U Benzodiazepines Scrn U Cocaine Metab Screen U Marijuana (THC) Screen Ethyl Alcohol Quality Measures Quality Measures VTE prophylaxis Assessment & Plan Assessment Current Active Medications: Generic Name Dose Route Start Last Admin Trade Name Freq PRN Reason Stop Dose Admin Acetaminophen 650 mg 05/21/25 20:26 05/22/25 07:50 Acetaminophen 325 Mg Tablet PO 06/20/25 20:25 650 mg Q6H PRN Administration Fever >100.4 or pain 1-3 Hydrocodone Bitart/Acetaminophen 1 tab 05/21/25 20:26 05/22/25 11:35 Hydrocodone/Apap 5/325 Tablet PO 05/26/25 20:25 1 tab Q4HR PRN Administration PAIN SCALE 4-6 (Moderate Hydralazine HCl 10 mg 05/22/25 07:37 05/22/25 07:44 Hydralazine Inj 20 Mg/Ml Vial IVP 06/20/25 20:30 10 mg Q4HR PRN Administration SBP > 180 Hydromorphone HCl 0.5 mg 05/21/25 20:26 05/22/25 13:03 Hydromorphone Inj 2 Mg/Ml Vial IVP 05/26/25 20:25 0.5 mg Q4HR PRN Administration PAIN 7-10 Lactated Ringer's 1,000 mls @ 100 mls/hr 05/21/25 20:30 05/22/25 07:51 Lactated Ringers IV 06/20/25 20:29 100 mls/hr .Q10H SEVEN Administration Lisinopril 20 mg 05/22/25 09:00 05/22/25 08:43 Lisinopril 20 Mg Tablet PO 06/21/25 08:59 20 mg QDAY SEVEN Administration Ondansetron HCl 4 mg 05/21/25 20:26 Ondansetron Inj 2 Mg/Ml Inj 2 Ml IVP 06/20/25 20:25 Q6H PRN NAUSEA OR VOMITING Protocol Pantoprazole Sodium 40 mg 05/21/25 20:30 05/22/25 08:43 Pantoprazole Inj 40 Mg Vial IVP 06/20/25 20:29 40 mg QDAY SEVEN Administration Plan Mr Mg is a 44-year-old male with PMH of HTN, gout, chronic pancreatitis, splenic laceration s/p coiling with recurrent subcapsular hematoma, GI bleed, and alcohol/cocaine use who presented to the ED on 05/21 with abdominal pain c/w acute pancreatitis flare. Admitted for pain control, IV fluids, and monitoring of acute pancreatitis. # Acute pancreatitis Acute epigastric pain, elevated lipase (423), CT consistent with pancreatitis, no pseudocyst. Likely dietary trigger (spicy food) Hemodynamically stable, no signs of shock. Given 1L NS bolus in ED, continued on LR maintenance fluids Pt developed adbominal pain after PO challenge/advancing diet Plan: - Advance diet as tolerated - Strict I&Os - PRN Pain mgmt: Tylenol, [place] 5/325 mg PO q4h, dilaudid 0.5 mg IV q4h - Zofran 4 mg PO q6h PRN - CTM with physical exam, CBC, CMP, Mg/Phos - Monitor for complications (necrosis, pseudocyst, ARDS, shock) # Subcapsular splenic hematoma Chronic, stable CT shows mild interval increase but reviewed by surgery who advised no intervention and outpatient follow-up. Plan: - No acute intervention - SCD for VTE ppx only - CTM with daily CBC - F/U outpatient for repeat imaging (rec by surgery) - Educated pt on red-flag sx (worsening LUQ pain, dizziness, syncope) # Leukocytosis - resolved Initial WBC 17.6, likely reactive to pancreatitis. Afebrile, no systemic signs of infection. Plan: - CTM with daily CBC, fever curve, vitals - No empiric abx required at this time # Hypertension, poorly controlled Home med: Lisinopril 20 mg PO daily Systolic >190 in ED, likely pain-driven. BP continues to be elevated even i/s/o more controlled abdominal pain Plan: - Increased home lisinopril 20 mg to 40 mg PO daily - Hydralazine 10 mg IV PRN (sBP >180) - CTM BP # Hx GI bleed # Hx Portal hypertensive gastropathy # Hx Esophageal varices Stool reported as dark but may be due to iron supplementation. Hb stable Plan: - CTM with daily CBC - Pantoprazole 40 mg IV daily - CTM stools for melena/hematochezia # Chronic gout No current flare. Not adherent with therapy. Plan: - CTM # Substance use history Alcohol and cocaine last used in September 2024. Utox positive for opioids (likely from prescribed narcotics). Plan: - Counseled pt on alcohol and drug use cessation # Insomnia Plan: - Melatonin 3 mg PO QHS PRN Health Maintenance: Disposition: Acute pancreatitis mgmt, advancing diet Diet: Low fat, advance as tolerated Lines: PIV DVT prophylaxis: SCDs only (no anticoagulation due to previous GI bleeds) GI prophylaxis: Pantoprazole 40 mg IV daily Bowel reg: Doc-senna PRN Pain mgmt: Tylenol, [place] 5/325 mg PO q4h, dilaudid 0.5 mg IV q4h Code status: Full code Plan discussed with Dr. Arteaga and Dr. Audie Clark MD PGY1
--- NOTE | 2025-05-22 16:28 | PC.SS ---
SS follow up note; Patient will discharge home tomorrow, advancing diet.
[2025-05-22] MEDS: MELATONIN 3 MG TABLET PO (19:54)
[2025-05-22] MEDS: SENNA/DOCUSATE SOD 1 TAB TABLET PO (20:00)
[2025-05-23] VITALS (9 sets, daily range): BP systolic 130–182; BP diastolic 87–107; PULSE 64–87; RESP 15–97; TEMP 36.1–36.5; O2SAT 98–100; BMI 22.4
[2025-05-23] MEDS: HYDROcodone/APAP 5/325 TABLET 1 TAB PO ×4 (00:11→23:55)
[2025-05-23] MEDS: hydrALAZINE INJ 20 MG/ML VIAL 10 MG IVP (00:12)
[2025-05-23] MEDS: HYDROmorphone INJ 2 MG/ML VIAL 0.5 MG IVP ×2 (01:45→09:43)
[2025-05-23 05:12] LABS: Basophils # (Auto) 0.0 Thou/mm3 (0.0-0.2); Basophils % (Auto) 0 % (0-2.5); Eosinophils # (Auto) 0.0 Thou/mm3 (0.0-0.5); Eosinophils % (Auto) 0 % (0-10); Hematocrit 36.9 % (41.0-53.0); Hemoglobin 11.8 g/dL (13.5-16.0); Immature Granulocytes Auto 0.06 Thou/mm3 (0.00-0.00); Lymphocytes # (Auto) 1.5 Thou/mm3 (1.0-4.8); Lymphocytes % (Auto) 13 % (10-50); Mean Corpuscular HGB Conc 32.0 g/dl (31.0-37.0); Mean Corpuscular Hemoglobin 30.0 pg (25.0-35.0); Mean Corpuscular Volume 94 fL (80-100); Monocytes # (Auto) 0.8 Thou/mm3 (0.0-0.8); Monocytes % (Auto) 7 % (0-12); Neutrophils # (Auto) 8.9 Thou/mm3 (1.8-7.7); Neutrophils % (Auto) 79 % (37-80); Nucleated Red Blood Cell # 0.00 Thou/mm3 (0.00-0.00); Nucleated Red Blood Cell % 0 /100 WBC (0); Platelet Count 309 Thou/mm3 (140-440); RDW Standard Deviation 57.2 fL (35.1-43.9); Red Blood Count 3.93 Miln/mm3 (4.50-5.90); White Blood Count 11.2 Thou/mm3 (3.8-10.6)
--- NOTE | 2025-05-23 05:27 | PC.NURSE ---
pt complaining of stomach pain 9/[address] Tello escoto bedside assessing pt.
[2025-05-23 05:41] LABS: Alanine Aminotransferase 49 U/L (10-49); Albumin, Serum 4.0 gm/dL (3.5-5.0); Albumin/Globulin Ratio 1.5 (1.2-2.2); Alkaline Phosphatase 204 U/L (46-116); Anion Gap 11 (7-16); Aspartate Amino Transferase 31 U/L (0-34); BUN/Creatinine Ratio 12 Ratio (12-20); Bilirubin,Total 0.4 mg/dL (0.3-1.2); Blood Urea Nitrogen 7 mg/dL (9-23); Calcium 9.5 mg/dL (8.3-10.6); Calcium (Corrected) 9.5 mg/dL (8.5-10.1); Carbon Dioxide 22.6 mMol/L (20.0-31.0); Chloride 104 mMol/L (98-107); Creatinine (Component) 0.6 mg/dL (0.6-1.3); Estimated Creatinine Clearance 144.3 mL/min (>60); Globulin 2.7 gm/dL (2.3-3.5); Glucose 134 mg/dL (74-106); Magnesium 1.8 mg/dL (1.6-2.6); Osmolality,Calculated 275 (275-295); Phosphorous 3.3 mg/dL (2.4-5.1); Potassium 4.1 mMol/L (3.4-5.1); Sodium 138 mMol/L (136-145); Total Protein 6.7 gm/dL (5.7-8.2); eGFR > 60 See Note
[2025-05-23] MEDS: HYDROmorphone INJ 2 MG/ML VIAL 1 MG IVP (05:41)
[2025-05-23] MEDS: Magnesium Sulfate 4 GM Ivpb 4 GM/50 ML BAG IV (07:51)
[2025-05-23] MEDS: RINGERS LACTATED 1000 ML 1,000 ML 200 ML IV (09:46)
--- NOTE | 2025-05-23 11:21 | ESPR_ITS ---
<Statement entered by Cammy Hammond MD - 05/23/25 14:50> I attest that I was physically present for the evaluation, physical examination, lab and imaging review of the patient with the residents. I discussed the case with the residents and agree with the findings and plans of care as documented below. Overnight, patient's IV fluids were discontinued. This morning at bedside, patient continues to complain of abdominal pain, mostly epigastric. Stated that he tried his diet, had some pain with oral intake but no nausea and vomiting. Switched his IV Dilaudid to IV Toradol. We will continue with IV hydration at 100 cc/h(about 1.5 mL/kg). Patient also stated that he has not have a bowel movement, we will add bowel softeners. We will continue to monitor closely for intractable abdominal pain, once improved, we will plan for discharge. Cammy Hammond MD <Statement entered by Toño Hough MD - 05/23/25 14:30> Patient was examined and case was reviewed with team including attending physician. Note reviewed, I agree with most of its contents and agree with the patient's care as documented by Dr. Merritt Patient seen today at the bedside found awake, alert, orientedx3. No overnight events reported. Vitals and labs reviewed. Continues to complain of abdominal pain in the epigastric region. Started back on IV fluids at 100 cc/h. Will continue to advance diet as tolerated and optimize pain regimen. Patient continues to be improving will discharge in the next 24-48 hours. Case discussed with my attending Dr. Stephany Hough MD PGY-2 Disclaimer: Despite multiple revisions, due to the dictation software being used, the document bellow may not be free of grammatical errors including phonetic/typographic errors. However, this does not deter from our commitment to providing health care in the patient's best interest in mind. Documentation for date of: 05/23/25 Subjective Subjective Interval history: 05/23/25: VSS. Patient was complaining of abdominal pain overnight. IV dilaudid was given with good relief of symptoms. Patient reports no bowel movement since yesterday. This morning patient states that dilaudid does not help with his pain anymore, thus it was discontinued and Toradol was added to his pain management regimen. Patient was evaluated and examined at bedside. Patient reports tolerating diet and denies any nausea or emesis. Exam Vital Signs Temp Pulse Resp BP Pulse Ox O2 Del Method 97.0 F 87 16 159/103 H 99 Room Air 05/23/25 08:00 05/23/25 08:00 05/23/25 08:00 05/23/25 08:00 05/23/25 08:00 05/23/25 08:00 Narrative Exam General: No acute distress, well nourished Eye: PERRL, EOMI, normal conjunctiva, no scleral icterus HENT: Normocephalic, atraumatic, normal hearing, moist oral mucosa Neck: Supple, non-tender, no JVD, no lymphadenopathy Lungs: Clear to auscultation bilaterally, non-labored respirations, symmetric chest rise, no use of accessory muscles Heart: Normal S1 and S2, no S3 or S4 appreciated. Normal rate and regular rhythm, no murmurs, rubs gallops, or edema. Peripheral pulses intact bilaterally, capillary refill brisk distally Abdomen: Soft, epigastric region TTP, nondistended Musculoskeletal: Normal range of motion and strength, no tenderness or swelling Skin: Skin is warm, dry, no rashes or lesions. Neurologic: Alert, awake and oriented x3. CN II-XII grossly intact. No focal neuro deficits. No signs of meningeal irritation noted. Psychiatric: Cooperative, appropriate mood and affect Objective Labs 05/23/25 04:14 05/23/25 04:14 Labs: Laboratory Results - last 24 hr 05/23/25 04:14 WBC 11.2 H RBC 3.93 L Hgb 11.8 L Hct 36.9 L MCV 94 MCH 30.0 MCHC 32.0 RDW Std Deviation 57.2 H Plt Count 309 D Neut % (Auto) 79 Lymph % (Auto) 13 [place] % (Auto) 7 Eos % (Auto) 0 Baso % (Auto) 0 Neut # (Auto) 8.9 H Lymph # (Auto) 1.5 [place] # (Auto) 0.8 Eos # (Auto) 0.0 Baso # (Auto) 0.0 Immature Gran # (Auto) 0.06 H Absolute Nucleated RBC 0.00 Immature Gran % 1 H Nucleated RBC % 0 Sodium 138 Potassium 4.1 Chloride 104 Carbon Dioxide 22.6 Anion Gap 11 BUN 7 L Creatinine 0.6 Estim Creat Clear Calc 144.3 eGFR > 60 BUN/Creatinine Ratio 12 Glucose 134 H Calculated Osmolality 275 Calcium 9.5 Corrected Calcium 9.5 Phosphorus 3.3 Magnesium 1.8 Total Bilirubin 0.4 AST 31 ALT 49 Alkaline Phosphatase 204 H D Total Protein 6.7 Albumin 4.0 Globulin 2.7 Albumin/Globulin Ratio 1.5 Quality Measures Quality Measures VTE prophylaxis Assessment & Plan Assessment Current Active Medications: Generic Name Dose Route Start Last Admin Trade Name Freq PRN Reason Stop Dose Admin Acetaminophen 650 mg 05/21/25 20:26 05/22/25 15:43 Acetaminophen 325 Mg Tablet PO 06/20/25 20:25 650 mg Q6H PRN Administration Fever >100.4 or pain 1-3 Hydrocodone Bitart/Acetaminophen 1 tab 05/21/25 20:26 05/23/25 08:03 Hydrocodone/Apap 5/325 Tablet PO 05/26/25 20:25 1 tab Q4HR PRN Administration PAIN SCALE 4-6 (Moderate Hydralazine HCl 10 mg 05/22/25 07:37 05/23/25 00:12 Hydralazine Inj 20 Mg/Ml Vial IVP 06/20/25 20:30 10 mg Q4HR PRN Administration SBP > 180 Lactated Ringer's 1,000 mls @ 200 mls/hr 05/23/25 08:04 05/23/25 09:46 Lactated Ringers IV 06/22/25 08:02 200 mls/hr .Q5H SEVEN Administration Ketorolac Tromethamine 15 mg 05/23/25 10:58 Ketorolac Inj 30 Mg/Ml Vial IVP 05/28/25 10:57 Q6HR PRN PAIN SCALE 7-10 (Severe Lisinopril 40 mg 05/23/25 09:00 05/23/25 08:00 Lisinopril 20 Mg Tablet PO 06/22/25 08:59 40 mg QDAY SEVEN Administration Melatonin 3 mg 05/22/25 15:53 05/22/25 19:54 Melatonin 3 Mg Tablet PO 06/21/25 20:59 3 mg HS PRN Administration insomnia Ondansetron HCl 4 mg 05/21/25 20:26 Ondansetron Inj 2 Mg/Ml Inj 2 Ml IVP 06/20/25 20:25 Q6H PRN NAUSEA OR VOMITING Protocol Pantoprazole Sodium 40 mg 05/21/25 20:30 05/23/25 08:00 Pantoprazole Inj 40 Mg Vial IVP 06/20/25 20:29 40 mg QDAY SEVEN Administration Polyethylene Glycol 17 gm 05/23/25 11:00 Polyethylene Glycol 17 Gm Packet PO 06/22/25 10:59 QDAY SEVEN Sennosides 1 tab 05/23/25 11:00 Senna/Docusate Sod 1 Tab Tablet PO 06/22/25 10:59 QDAY SEVEN Protocol Plan Mr Mg is a 44-year-old male with PMH of HTN, gout, chronic pancreatitis, splenic laceration s/p coiling with recurrent subcapsular hematoma, GI bleed, and alcohol/cocaine use who presented to the ED on 05/21 with abdominal pain c/w acute pancreatitis flare. Admitted for pain control, IV fluids, and monitoring of acute pancreatitis. # Acute pancreatitis # Abdominal pain Acute epigastric pain, elevated lipase (423), CT consistent with pancreatitis, no pseudocyst. Hemodynamically stable, no signs of shock. RUQ US shows Common bile duct 0.9 cm, no definite stones. No concern for cholangitis at this time. Patient is afebrile with WBC of 11.2. Given 1L NS bolus in ED, continued on LR maintenance fluids Pt developed abdominal pain after PO challenge/advancing diet Plan: - Advance diet as tolerated - Continue IVF LR at 150 - Strict I&Os - PRN Pain mgmt: Tylenol, [place] 5/325 mg PO q4h, Toradol 15 q6hr - Zofran 4 mg PO q6h PRN - CTM with physical exam, CBC, CMP, Mg/Phos - Monitor for complications (necrosis, pseudocyst, ARDS, shock) # Subcapsular splenic hematoma Chronic, stable CT shows mild interval increase but reviewed by surgery who advised no intervention and outpatient follow-up. Plan: - No acute intervention - SCD for VTE ppx only - CTM with daily CBC - F/U outpatient for repeat imaging (rec by surgery) - Educated pt on red-flag sx (worsening LUQ pain, dizziness, syncope) # Leukocytosis - resolved Initial WBC 17.6, likely reactive to pancreatitis. Afebrile, no systemic signs of infection. Plan: - CTM with daily CBC, fever curve, vitals - No empiric abx required at this time # Hypertension, poorly controlled Home med: Lisinopril 20 mg PO daily Systolic >190 in ED, likely pain-driven. BP continues to be elevated even i/s/o more controlled abdominal pain Plan: - Increased home lisinopril 20 mg to 40 mg PO daily - Hydralazine 10 mg IV PRN (sBP >180) - CTM BP # Hx GI bleed # Hx Portal hypertensive gastropathy # Hx Esophageal varices Stool reported as dark but may be due to iron supplementation. Hb stable Plan: - CTM with daily CBC - Pantoprazole 40 mg IV daily - CTM stools for melena/hematochezia # Chronic gout No current flare. Not adherent with therapy. Plan: - CTM # Substance use history Alcohol and cocaine last used in September 2024. Utox positive for opioids (likely from prescribed narcotics). Plan: - Counseled pt on alcohol and drug use cessation # Insomnia Plan: - Melatonin 3 mg PO QHS PRN Health Maintenance: Disposition: Acute pancreatitis mgmt, advancing diet Diet: Low fat, advance as tolerated Lines: PIV DVT prophylaxis: SCDs only (no anticoagulation due to previous GI bleeds) GI prophylaxis: Pantoprazole 40 mg IV daily Bowel reg: Doc-senna PRN Pain mgmt: Tylenol, [place] 5/325 mg PO q4h, Toradol 15 q6 Code status: Full code Plan discussed with senior resident Dr. Johnson and attending physician Dr. Stephany Merritt, DO PGY1
[2025-05-23] MEDS: SENNA/DOCUSATE SOD 1 TAB TABLET PO (11:31)
[2025-05-23] MEDS: POLYETHYLENE GLYCOL 17 GM PACKET PO (11:31)
[2025-05-23] MEDS: KETOROLAC INJ 30 MG/ML VIAL 15 MG IVP ×2 (13:34→20:21)
[2025-05-23] MEDS: RINGERS LACTATED 1000 ML 1,000 ML 150 ML IV ×2 (15:09→20:29)
[2025-05-23] MEDS: MELATONIN 3 MG TABLET PO (20:29)
[2025-05-24] VITALS: BP 165/92; PULSE 65; RESP 17; TEMP 36.1; O2SAT 99
[2025-05-24] MEDS: KETOROLAC INJ 30 MG/ML VIAL 15 MG IVP ×2 (02:45→09:32)
[2025-05-24 04:00] VITALS: BP 170/103; PULSE 64; PULSE 73; RESP 17; TEMP 36.2; O2SAT 99
[2025-05-24 05:25] LABS: Basophils # (Auto) 0.0 Thou/mm3 (0.0-0.2); Basophils % (Auto) 0 % (0-2.5); Eosinophils # (Auto) 0.0 Thou/mm3 (0.0-0.5); Eosinophils % (Auto) 0 % (0-10); Hematocrit 35.4 % (41.0-53.0); Hemoglobin 11.1 g/dL (13.5-16.0); Immature Granulocytes Auto 0.03 Thou/mm3 (0.00-0.00); Lymphocytes # (Auto) 1.1 Thou/mm3 (1.0-4.8); Lymphocytes % (Auto) 14 % (10-50); Mean Corpuscular HGB Conc 31.4 g/dl (31.0-37.0); Mean Corpuscular Hemoglobin 29.6 pg (25.0-35.0); Mean Corpuscular Volume 94 fL (80-100); Monocytes # (Auto) 0.8 Thou/mm3 (0.0-0.8); Monocytes % (Auto) 10 % (0-12); Neutrophils # (Auto) 5.9 Thou/mm3 (1.8-7.7); Neutrophils % (Auto) 75 % (37-80); Nucleated Red Blood Cell # 0.00 Thou/mm3 (0.00-0.00); Nucleated Red Blood Cell % 0 /100 WBC (0); Platelet Count 241 Thou/mm3 (140-440); RDW Standard Deviation 56.6 fL (35.1-43.9); Red Blood Count 3.75 Miln/mm3 (4.50-5.90); White Blood Count 7.9 Thou/mm3 (3.8-10.6)
[2025-05-24 06:05] LABS: Alanine Aminotransferase 35 U/L (10-49); Albumin, Serum 3.6 gm/dL (3.5-5.0); Albumin/Globulin Ratio 1.5 (1.2-2.2); Alkaline Phosphatase 180 U/L (46-116); Anion Gap 11 (7-16); Aspartate Amino Transferase 45 U/L (0-34); BUN/Creatinine Ratio 11 Ratio (12-20); Bilirubin,Total 0.4 mg/dL (0.3-1.2); Blood Urea Nitrogen 8 mg/dL (9-23); Calcium 9.3 mg/dL (8.3-10.6); Calcium (Corrected) 9.6 mg/dL (8.5-10.1); Carbon Dioxide 22.7 mMol/L (20.0-31.0); Chloride 105 mMol/L (98-107); Creatinine (Component) 0.7 mg/dL (0.6-1.3); Estimated Creatinine Clearance 121.5 mL/min (>60); Globulin 2.4 gm/dL (2.3-3.5); Glucose 139 mg/dL (74-106); Magnesium 2.0 mg/dL (1.6-2.6); Osmolality,Calculated 277 (275-295); Phosphorous 3.3 mg/dL (2.4-5.1); Potassium 5.0 mMol/L (3.4-5.1); Sodium 139 mMol/L (136-145); Total Protein 6.0 gm/dL (5.7-8.2); eGFR > 60 See Note
[2025-05-24 08:00] VITALS: BP 169/112; PULSE 63; PULSE 78; RESP 17; TEMP 36.2; O2SAT 99
[2025-05-24 08:01] VITALS: BP 169/112; PULSE 63
[2025-05-24] MEDS: HYDROcodone/APAP 5/325 TABLET 1 TAB PO (08:01)
[2025-05-24] MEDS: SENNA/DOCUSATE SOD 1 TAB TABLET PO (08:01)
[2025-05-24] MEDS: POLYETHYLENE GLYCOL 17 GM PACKET PO (08:02)
[2025-05-24] MEDS: RINGERS LACTATED 1000 ML 1,000 ML 150 ML IV (08:07)
[2025-05-24 10:04] VITALS: PULSE 1; RESP 18; RESP 98
--- NOTE | 2025-05-24 12:18 | ESDS_ITS ---
<Statement entered by Cammy Hammond MD - 05/24/25 16:02> I attest that I was physically present for the evaluation, physical examination, lab and imaging review of the patient with the residents. I discussed the case with the residents and agree with the findings and plans of care as documented below. At bedside today, patient states she is feeling well and denies any new complaints. She is abdominal pain has been improving consistently. He has been able to tolerate his diet well, denies any nausea or vomiting. Vital signs and lab results are stable. We will discharge patient home on analgesics and antihypertensives. Recommended him to follow-up with PCP. Also recommended strongly against alcohol use. Cammy Hammond MD <Statement entered by Toño Hough MD - 05/24/25 13:26> Patient was examined and case was reviewed with team including attending physician. Note reviewed, I agree with most of its contents and agree with the patient's care as documented by Dr. Eduardo Hough MD PGY-2 Planned Discharge Date 05/24/25 DS: Providers Provider Date of admission: 05/21/25 20:23 Primary care physician: Ramon Mendez Admitting Provider: Jemal Moeller DO Attending Provider on Admission: Radha Bronson MD Attending Provider on DC: Dr. Hammond Discharging Provider: RESIDENT Jacky DS: Diagnosis Problem List Completed Was Problem List Reviewed/Reconciled?: Yes Hospital Course Hospital Course Hospital course: Hospital Course Mr Mg is a 44-year-old male with PMH of HTN, gout, chronic pancreatitis, splenic laceration s/p coiling with recurrent subcapsular hematoma, EtOH-induced hypertensive portal gastropathy, esophageal varices, and polysubstance use (alcohol, cocaine) who presented to the ED on 05/21 with abdominal pain c/w acute pancreatitis flare. Admitted for pain control, IV fluids, and monitoring of acute pancreatitis. Liver US showed absent gallbladder, CBD normal size, no stones visualized. Triglycerides WNL. EtOH level WNL. Received IV fluids, pain control with Tylenol, PO [place], IV dialudid. Transitioned [place] and Dilaudid to IV Toradol after pain rating decreased from admission. Held anticoagulation i/s/o hx of GI bleed 2/2 esophageal varices. SCDs used only for VTE ppx. Clears diet was started and advanced as tolerated on low fat diet. This AM patient was able to eat oatmeal without increasing abdominal pain. Patient continued to have elevated BP throughout hospitalization. Home med includes lisinopril 20 mg PO daily. HTN in hospital most likely multifactorial i /s/o pain, IVF, baseline uncontrolled HTN. Increased HTN med regimen to Lisinopril 40 mg PO daily and amlodipine 5 mg PO daily. Patient counseled on f/u with PCP for further BP management. Patient stable and medically cleared for discharge. Diagnoses # Acute pancreatitis # Subcapsular splenic hematoma # Leukocytosis - resolved # Hypertension, poorly controlled # Hx GI bleed # Hx Portal hypertensive gastropathy # Hx Esophageal varices # Chronic gout # Substance use history (EtOH, cocaine, opioids) # Insomnia Discharge Instructions Continue home medications as prescribed. Follow low fat diet, increase oral fluid intake. You have been prescribed amlodipine, lisinopril for your high blood pressure Follow up with PCP within 2 weeks. Should your symptoms recur or worsen patient is instructed to return to the ED. Rosalie Clark MD PGY1 Time Spent with Patient Time attestation: Total time spent providing and/or coordinating discharge services: 38 min Time spent: Greater than 30 minutes Exam Vital Signs Temp Pulse Resp BP Pulse Ox O2 Del Method 97.2 F 1 L 18 169/112 H 99 Room Air 05/24/25 08:00 05/24/25 10:04 05/24/25 10:04 05/24/25 08:01 05/24/25 08:00 05/24/25 08:00 Narrative Exam General: No acute distress, well nourished Eye: PERRL, EOMI, normal conjunctiva, no scleral icterus HENT: Normocephalic, atraumatic, normal hearing, moist oral mucosa Neck: Supple, non-tender, no JVD, no lymphadenopathy Lungs: Clear to auscultation bilaterally, non-labored respirations, symmetric chest rise, no use of accessory muscles Heart: Normal S1 and S2, no S3 or S4 appreciated. Normal rate and regular rhythm, no murmurs, rubs gallops, or edema. Peripheral pulses intact bilaterally, capillary refill brisk distally Abdomen: Soft, epigastric region TTP, nondistended Musculoskeletal: Normal range of motion and strength, no tenderness or swelling Skin: Skin is warm, dry, no rashes or lesions. Neurologic: Alert, awake and oriented x3. CN II-XII grossly intact. No focal neuro deficits. No signs of meningeal irritation noted. Psychiatric: Cooperative, appropriate mood and affect Discharge Plan Plan Patient Disposition: HOME (Self Care) Patient condition on transfer: Stable Care Plan Goals: Continue home medications as prescribed. Follow low fat diet, increase oral fluid intake. You have been prescribed amlodipine, lisinopril for your high blood pressure Follow up with PCP within 2 weeks. Should your symptoms recur or worsen patient is instructed to return to the ED. Prescriptions/Referrals Prescriptions/Med Rec: New lisinopril 40 mg tablet 40 mg PO QDAY Qty: 30 0RF amlodipine 5 mg tablet 5 mg PO QDAY Qty: 30 0RF ketorolac 10 mg tablet 10 mg PO Q8H MDD 3 PRN (Reason: pain) Qty: 7 0RF Rx Instructions: maximum total duration of 5 days from all oral, intranasal, or parenteral formulations Continued allopurinol 100 mg tablet 100 mg PO QDAY hydrocodone-acetaminophen 10-325 mg tablet 1 tab PO BID PRN (Reason: Pain) ergocalciferol (vitamin D2) 1,250 mcg (50,000 unit) capsule 1,250 mcg PO QWEEK Rx Instructions: every sunday quetiapine 25 mg tablet 25 mg PO PRN PRN (Reason: Sleep) omeprazole 20 mg Capsule,Delayed Release(Dr/Ec) 20 mg PO QDAY Discontinued prednisone 20 mg tablet 20 mg PO QDAY Rx Instructions: pt takes only when he needs it lisinopril 20 mg tablet 10 mg PO BID Patient Comments: TAKE 2 TABLETS BY MOUTH EVERY DAY Rx Instructions: Patient states he only takes as needed when BP really bad. Referrals: Ramon Lainez [Primary Care Provider] - Patient/Caregiver Discharge Instructions Discharge Activity: activity as tolerated Print Language: Croatian Stand Alone Forms: Shona Award Info., Patient Portal Info Letter Discharge Order Discharge Orders: Discharge (Routine); Ordered 05/24/25 Ordered By: Toño Hough Quality Discharge Quality Measures VTE prophylaxis
== END 2025-05-24 10:34 | disposition home or self-care (01) | DRG 282 ==
LOC: SERX 18:23 → SERHOLD 20:31 → S3SX 22:37
PROVIDERS: Nurse Practitioner Family; Admitting Provider Student in an Organized Health Care Education/Training Program; Emergency Provider Family Medicine; PCP Physician Assistant; Visit Provider Internal Medicine
DX: K85.90 Acute pancreatitis without necrosis or infection, unspecified (principal); S36.039A Unspecified laceration of spleen, initial encounter; I10 Essential (primary) hypertension; K86.1 Other chronic pancreatitis; M1A.9XX0 Chronic gout, unspecified, without tophus (tophi); K76.6 Portal hypertension; G47.00 Insomnia, unspecified; Z79.899 Other long term (current) drug therapy
CPT/HCPCS: 36415; 74177; 76705; 80053; 80061; 80307; 80320; 83690; 83735; 84100; 85025; 85610; 93005; 93225; 96361; 96374; 96375; 96376; 99284; A4649; J0360; J1171; J1885; J2270; J2405; J2470; J2765; J3475; J7030; J7120; Q9967; A9270; G0480

== ENCOUNTER 2025-08-31 08:41 | Emergency (ER) | payer MEDICAID, SELFPAY ==
[2025-08-31 08:54] VITALS: BP 153/95; PULSE 96; RESP 18; TEMP 37; O2SAT 99; BMI 23.5
--- NOTE | 2025-08-31 09:00 | XR_ITS ---
Examination: CT abdomen and pelvis without contrast. Coronal 3-D reconstructions. Sagittal 2-D reconstructions. Date and time of exam: August 31, 2025, 0906 hours INDICATIONS: Generalized abdominal pain bilateral flank pain beginning today, comparison May 21, 2025 CTDI: vol (mGy): 5.48 DLP: (mGycm): 318 Technique: Axial images of the abdomen have been obtained, 3 mm slice thickness Intravenous contrast material has not been administered. Low dose protocols were performed. One or more of the following dose reduction techniques were used; automated exposure control, adjustment of the mA and/or KV according to patient size, use of iterative reconstruction technique. Findings: Limited noncontrast study Subcapsular splenic hematoma is not clearly visualized on this exam No focal liver lesions Embolization material in the left upper abdomen Absent gallbladder No biliary tract dilatation No pancreatic mass No hydronephrosis or renal calculi Aorta normal size Normal appendix Colonic diverticulosis, no diverticulitis Contracted urinary bladder No significant prostatomegaly IMPRESSION: Limited noncontrast study which is suboptimal for assessing the patient's known splenic hematoma No obvious subcapsular splenic hematoma noted on this study Recommend follow-up CT scan abdomen post contrast as clinically warranted
--- NOTE | 2025-08-31 09:11 | PD.EDABDPN ---
ED Abdominal Pain RME/HPI General Chief Complaint: Abdominal Pain Stated complaint: ABD PAIN 04/02 Time seen by provider: 08/31/25 09:00 Arrival date/time: 08/31/25 08:41 45-year-old male with a history of hypertension, upper GI bleed, acute pancreatitis, presents to the emergency room with a chief complaint of 7 out of 10 epigastric abdominal pain x 2 days Source: patient Mode of arrival: ambulatory Limitations: no limitations Related Data Home Medications ?Medication ?Instructions ?Recorded ?Confirmed quetiapine 25 mg tablet 25 mg PO PRN PRN Sleep 04/14/24 05/22/25 allopurinol 100 mg tablet 100 mg PO QDAY 06/27/24 05/22/25 ergocalciferol (vitamin D2) 1,250 1,250 mcg PO QWEEK 06/27/24 05/22/25 mcg (50,000 unit) capsule hydrocodone 10 mg-acetaminophen 1 tab PO BID PRN Pain 06/27/24 05/22/25 325 mg tablet omeprazole 20 mg capsule,delayed 20 mg PO QDAY 08/08/24 05/22/25 release Previous Rx's ?Medication ?Instructions ?Recorded amlodipine 5 mg tablet 5 mg PO QDAY #30 tabs 05/24/25 ketorolac 10 mg tablet 10 mg PO Q8H PRN pain #7 tabs 05/24/25 lisinopril 40 mg tablet 40 mg PO QDAY #30 tabs 05/24/25 Allergies Allergy/AdvReac Type Severity Reaction Status Date / Time No Known Allergies Allergy Verified 08/31/25 08:43 ED Exam General Limitations: Present no limitations Course Orders Category Date Time Status CT abdomen pelvis wo con Stat Exams 08/31/25 09:00 Taken Alcohol, Blood Medical Stat Lab 08/31/25 09:00 Ordered CBC Stat Lab 08/31/25 09:00 Ordered CMP [Comprehensive Metabolic Panel] Stat Lab 08/31/25 09:00 Ordered Drug Screen,Urine Stat Lab 08/31/25 09:00 Ordered Lipase Stat Lab 08/31/25 09:00 Ordered UA [Urinalysis] Stat Lab 08/31/25 09:00 Ordered Urine Culture Stat Lab 08/31/25 09:00 Ordered Vital Signs Vital signs: Vital Signs Temperature 98.6 F 08/31/25 08:54 Pulse Rate 96 08/31/25 08:54 Respiratory Rate 18 12/08/25 08:54 Blood Pressure 153/95 H 08/31/25 08:54 Pulse Oximetry (%) 99 08/31/25 08:54 Oxygen Delivery Method Room Air 08/31/25 08:54 Discharge Plan Prescriptions/Referrals Prescriptions/Med Rec: No Action allopurinol 100 mg tablet 100 mg PO QDAY hydrocodone-acetaminophen 10-325 mg tablet 1 tab PO BID PRN (Reason: Pain) ergocalciferol (vitamin D2) 1,250 mcg (50,000 unit) capsule 1,250 mcg PO QWEEK Rx Instructions: every sunday lisinopril 40 mg tablet 40 mg PO QDAY Qty: 30 0RF amlodipine 5 mg tablet 5 mg PO QDAY Qty: 30 0RF ketorolac 10 mg tablet 10 mg PO Q8H MDD 3 PRN (Reason: pain) Qty: 7 0RF Rx Instructions: maximum total duration of 5 days from all oral, intranasal, or parenteral formulations quetiapine 25 mg tablet 25 mg PO PRN PRN (Reason: Sleep) omeprazole 20 mg Capsule,Delayed Release(Dr/Ec) 20 mg PO QDAY Patient/Caregiver Discharge Instructions Print Language: Armenian
[2025-08-31 09:23] LABS: Basophils # (Auto) 0.0 Thou/mm3 (0.0-0.2); Basophils % (Auto) 0 % (0-2.5); Eosinophils # (Auto) 0.1 Thou/mm3 (0.0-0.5); Eosinophils % (Auto) 1 % (0-10); Hematocrit 35.0 % (41.0-53.0); Hemoglobin 11.5 g/dL (13.5-16.0); Immature Granulocytes Auto 0.05 Thou/mm3 (0.00-0.00); Lymphocytes # (Auto) 1.5 Thou/mm3 (1.0-4.8); Lymphocytes % (Auto) 19 % (10-50); Mean Corpuscular HGB Conc 32.9 g/dl (31.0-37.0); Mean Corpuscular Hemoglobin 31.3 pg (25.0-35.0); Mean Corpuscular Volume 95 fL (80-100); Monocytes # (Auto) 0.6 Thou/mm3 (0.0-0.8); Monocytes % (Auto) 8 % (0-12); Neutrophils # (Auto) 5.7 Thou/mm3 (1.8-7.7); Neutrophils % (Auto) 71 % (37-80); Nucleated Red Blood Cell # 0.00 Thou/mm3 (0.00-0.00); Nucleated Red Blood Cell % 0 /100 WBC (0); Platelet Count 243 Thou/mm3 (140-440); RDW Standard Deviation 51.2 fL (35.1-43.9); Red Blood Count 3.67 Miln/mm3 (4.50-5.90); White Blood Count 8.1 Thou/mm3 (3.8-10.6)
[2025-08-31 09:43] LABS: Collection Type, Urine Clean Catch; Squamous Epithelial Cell,Urine 0 /hpf (0-5)
[2025-08-31 09:52] LABS: Bilirubin,Urine Negative (Negative); Blood,Urine Negative (Negative); Clarity,Urine Clear (Clear/Hazy); Color,Urine Yellow (Lt Yel-Yel); Glucose, Urine Negative (Negative); Ketones,Urine Negative (Negative); Leukocyte Esterase,Urine Negative (Negative); Nitrite,Urine Negative (Negative); PH,Urine 6.5 (5.0-7.0); Protein,Urine Trace (Neg - Trace); RBC,Urine 1 /hpf (0-3); Specific Gravity,Urine 1.021 (1.001-1.035); Urobilinogen,Urine Negative mg/dL (0.0-1.0); WBC,Urine < 1 /hpf (0-5)
--- NOTE | 2025-08-31 09:55 | XR_ITS ---
Examination: CT abdomen with intravenous contrast CT pelvis with intravenous contrast 2-D coronal reconstructions 2-D sagittal reconstructions Date and time of exam: August 31, 2025, 1157 hours INDICATION: Abdominal pain generalized flank pain beginning today, history of fluid collection subcapsular to the spleen. CTDI: vol (mGy) 5.93 DLP: (mGycm) 360 Technique: Multiple axial sections of the abdomen and pelvis have been obtained. 64 slice high-resolution scanner used. 3 mm axial sections have been obtained, post intravenous injection 60 cc [id number] 2-D sagittal, coronal reconstructions obtained. Low dose protocols were performed. One or more of the following dose reduction techniques were used; automated exposure control, adjustment of the mA and/or KV according to patient size, use of iterative reconstruction technique. Findings: Smaller fluid collection subcapsular to the spleen, thickness 20 mm compared to 35 mm on May 21, 2025 No new fluid collection around the spleen Embolization material medial to the spleen No focal liver lesions No pancreatic mass No hydronephrosis Aorta normal size Normal appendix No bowel obstruction No prostatomegaly Stable osseous structures IMPRESSION: Smaller fluid collection subcapsular to the spleen, thickness 20 mm compared to 35 mm on May 21, 2025
--- NOTE | 2025-08-31 09:56 | PD.EDRME ---
Rapid Medical Screening Exam RME Arrival date/time: 08/31/25 08:41 45-year-old male with a history of hypertension, upper GI bleed, acute pancreatitis, presents to the emergency room with a chief complaint of 7 out of 10 epigastric abdominal pain x 2 days I have greeted and performed a focused initial assessment of this patient. A comprehensive ED assessment and evaluation of the patient, analysis of all test results, and completion of the medical decision making process will be conducted by additional ED providers. Chief Complaint: Abdominal Pain Time Seen by Provider: 08/31/25 09:00 Vital signs: Vital Signs Temperature 98.6 F 08/31/25 08:54 Pulse Rate 96 08/31/25 08:54 Respiratory Rate 18 08/31/25 08:54 Blood Pressure 153/95 H 08/31/25 08:54 Pulse Oximetry (%) 99 08/31/25 08:54 Oxygen Delivery Method Room Air 08/31/25 08:54 Vital signs reviewed by provider: Yes Exam: 7 out of 10 epigastric abdominal pain that radiates to the right upper quadrant with palpation Clear bilateral lung sounds Clinical Impression: Splenic hematoma/acute pancreatitis
[2025-08-31 10:01] LABS: Amphetamine/Methamp Scrn,U Negative (Negative); Barbiturate Screen,Urine Negative (Negative); Benzodiazepines Screen,Urine Negative (Negative); Benzoylecgonine Screen, Ur Negative (Negative); Fentanyl Screen,Urine Negative (Negative); Opiate Screen,Urine Positive (Negative); THC Screen,Urine Negative (Negative)
[2025-08-31 10:13] LABS: Alanine Aminotransferase 10 U/L (10-49); Albumin, Serum 3.9 gm/dL (3.5-5.0); Albumin/Globulin Ratio 1.4 (1.2-2.2); Alcohol, Blood Medical < 3.0 mg/dL (0-10.0); Alkaline Phosphatase 113 U/L (46-116); Anion Gap 12 (7-16); Aspartate Amino Transferase 19 U/L (0-34); BUN/Creatinine Ratio 9 Ratio (12-20); Bilirubin,Total 0.4 mg/dL (0.3-1.2); Blood Urea Nitrogen 8 mg/dL (9-23); Calcium 8.7 mg/dL (8.3-10.6); Calcium (Corrected) 8.8 mg/dL (8.5-10.1); Carbon Dioxide 21.1 mMol/L (20.0-31.0); Chloride 109 mMol/L (98-107); Creatinine (Component) 0.9 mg/dL (0.6-1.3); Estimated Creatinine Clearance 96.9 mL/min (>60); Globulin 2.7 gm/dL (2.3-3.5); Glucose 126 mg/dL (74-106); Lipase 76 U/L (12-53); Osmolality,Calculated 283 (275-295); Potassium 3.6 mMol/L (3.4-5.1); Sodium 142 mMol/L (136-145); Total Protein 6.6 gm/dL (5.7-8.2); eGFR > 60 See Note
--- NOTE | 2025-08-31 10:21 | PD.EDADULT ---
ED General RME/HPI General Chief complaint: Abdominal Pain Stated complaint: ABD PAIN 04/02 Time Seen by Provider: 08/31/25 09:00 Arrival date/time: 08/31/25 08:41 RME / HPI RME / HPI narrative: 08/31/25 08:41 45-year-old male with a history of hypertension, upper GI bleed, acute pancreatitis, presents to the emergency room with a chief complaint of 7 out of 10 epigastric abdominal pain x 2 days I have greeted and performed a focused initial assessment of this patient. A comprehensive ED assessment and evaluation of the patient, analysis of all test results, and completion of the medical decision making process will be conducted by additional ED providers. Exam: 7 out of 10 epigastric abdominal pain that radiates to the right upper quadrant with palpation Clear bilateral lung sounds Impression: Splenic hematoma/acute pancreatitis Related Data Home Medications ?Medication ?Instructions ?Recorded ?Confirmed quetiapine 25 mg tablet 25 mg PO PRN PRN Sleep 04/14/24 05/22/25 allopurinol 100 mg tablet 100 mg PO QDAY 06/27/24 05/22/25 ergocalciferol (vitamin D2) 1,250 1,250 mcg PO QWEEK 06/27/24 05/22/25 mcg (50,000 unit) capsule hydrocodone 10 mg-acetaminophen 1 tab PO BID PRN Pain 06/27/24 05/22/25 325 mg tablet omeprazole 20 mg capsule,delayed 20 mg PO QDAY 08/08/24 05/22/25 release Previous Rx's ?Medication ?Instructions ?Recorded amlodipine 5 mg tablet 5 mg PO QDAY #30 tabs 05/24/25 ketorolac 10 mg tablet 10 mg PO Q8H PRN pain #7 tabs 05/24/25 lisinopril 40 mg tablet 40 mg PO QDAY #30 tabs 05/24/25 Allergies Allergy/AdvReac Type Severity Reaction Status Date / Time No Known Allergies Allergy Verified 08/31/25 08:43 ED Exam Narrative Physical exam: Physical Exam: GENERAL: Awake, answering questions appropriately, appears stated age HEENT: NC/AT. Moist mucosa. PERRLA/EOMI. CARDIO: Heart RRR, no obvious murmurs, no JVD. PULM: No coughing or visible SOB. Lungs CTA B/L. GI: Abdomen soft, mildly tender to palpation left upper quadrant and epigastric region, no guarding or rigidity noted. No rebound tenderness, borborygmi apparent SKIN/MSK/EXT: No wounds/discoloration/rashes/edema/amputations noted. +Pedal pulses present B/L. NEURO: Oriented x3, Moves extremities x4, no focal neurologic deficits noted. Course Quality Measures none Orders Category Date Time Status CT Screening NOW Care 08/31/25 09:[address] abdomen pelvis w con Stat Exams 08/31/25 09:[address] abdomen pelvis wo con Stat Exams 08/31/25 09:00 Completed Alcohol, Blood Medical Stat Lab 08/31/25 09:14 Completed CBC Stat Lab 08/31/25 09:14 Completed CMP [Comprehensive Metabolic Panel] Stat Lab 08/31/25 09:14 Completed Drug Screen,Urine Stat Lab 08/31/25 09:38 Completed Lipase Stat Lab 08/31/25 09:14 Completed UA [Urinalysis] Stat Lab 08/31/25 09:38 Completed Urine Culture Stat Lab 08/31/25 09:38 Received Morphine* Inj Med 08/31/25 10:37 Discontinued 2 mg IVP X1 ONE Vital Signs Vital signs: Vital Signs Temperature 98.6 F 08/31/25 08:54 Pulse Rate 96 08/31/25 08:54 Respiratory Rate 18 08/31/25 08:54 Blood Pressure 153/95 H 08/31/25 08:54 Pulse Oximetry (%) 99 08/31/25 08:54 Oxygen Delivery Method Room Air 08/31/25 08:54 Discharge Plan Plan Patient Disposition: HOME (Self Care) Discharge Disposition comment: Follow-up with your primary care physician within the next 5 days for close follow-up Use [id number] Tylenol and or NSAIDs for pain management Patient condition on transfer: Stable Prescriptions/Referrals Prescriptions/Med Rec: No Action allopurinol 100 mg tablet 100 mg PO QDAY hydrocodone-acetaminophen 10-325 mg tablet 1 tab PO BID PRN (Reason: Pain) ergocalciferol (vitamin D2) 1,250 mcg (50,000 unit) capsule 1,250 mcg PO QWEEK Rx Instructions: every sunday lisinopril 40 mg tablet 40 mg PO QDAY Qty: 30 0RF amlodipine 5 mg tablet 5 mg PO QDAY Qty: 30 0RF ketorolac 10 mg tablet 10 mg PO Q8H MDD 3 PRN (Reason: pain) Qty: 7 0RF Rx Instructions: maximum total duration of 5 days from all oral, intranasal, or parenteral formulations quetiapine 25 mg tablet 25 mg PO PRN PRN (Reason: Sleep) omeprazole 20 mg Capsule,Delayed Release(Dr/Ec) 20 mg PO QDAY Referrals: Ramon Lainez [Primary Care Provider] - In 1 week Problem List Clinical Impression: Chronic pancreatitis Patient/Caregiver Discharge Instructions Education Materials: Discharge Instructions for ... Print Language: Urdu Stand Alone Forms: Shona Award Info., Patient Portal Info Letter MDM Narrative MDM hospital course (for use when minimal MDM required): HPI: 45-year-old male past medical history of hypertension, gout, chronic pancreatitis, splenic laceration status post coiling with recurrent subcapsular hematoma, alcohol induced hypertensive portal gastropathy, esophageal varices, alcohol and cocaine use disorder presenting to the ED on 08/31 with abdominal pain specifically in the epigastric and left upper quadrant. Patient states that the pain started about 3 days ago and has progressively been present without any worsening. He denies having any chest pain, shortness of breath, dizziness but states that when lying on his left side the pain is unbearable. He is worried that it could be a recurrence of his splenic laceration. He also states that he has been having liquid bowel movements but without any dark tarry stools, melena, hematochezia or hematemesis. On examination, please refer to the physical exam above; patient presented mildly hypertensive 153/95, heart rate of 96, respiratory of 18, afebrile satting 99 on room air. Pertinent lab findings included CBC showing normocytic anemia likely secondary to liver disease, CMP showing mild hyperchloremia, normal liver function, urinalysis did not show any sign infections, U tox is negative other than opiates being positive , CT abdomen pelvis without contrast showed limited study regarding the spleen but otherwise unremarkable; CT abdomen pelvis with contrast showed smaller fluid collection in the subcapsular region measuring 20 mm compared to [address] scan (05/21/2025) #Persistent hematoma of the spleen #Chronic pancreatitis As noted above, patient has history of chronic pancreatitis along with coiling of the splenic laceration; likely residual plate secondary to that CT abdomen pelvis with contrast does not show any new concerning findings in subcapsular region and is now measuring less than it was in April 2025 Plan: Will discharge patient with the following recommendation Follow-up with your primary care physician within the next 5 days for close follow-up Use [id number] Tylenol and or NSAIDs for pain management Patient seen and assessed with attending Dr. Jeremi Saez, DO PGY-2 Internal Medicine - GME Medication Administration(s) Medication Administration History Discontinued Medications Morphine Sulfate (Morphine Sulf Inj 4 Mg/Ml Vial) 2 mg IVP X1 ONE Stop: 08/31/25 10:38 Last Admin: 08/31/25 11:11 Dose: 2 mg Documented By: ARF
[2025-08-31] MEDS: MORPHINE SULF INJ 4 MG/ML VIAL 2 MG IVP (11:11)
== END 2025-08-31 14:13 | disposition home or self-care (01) ==
PROVIDERS: Nurse Practitioner Family; Emergency Provider Emergency Medicine; PCP Physician Assistant
DX: K86.1 Other chronic pancreatitis (principal)
CPT/HCPCS: 36415; 74176; 74177; 74178; 80053; 80307; 80320; 81001; 83690; 85025; 87086; 96374; 99283; A4649; J2270; Q9967; G0480

== ENCOUNTER 2025-09-13 01:06 | Emergency (ER) | payer MEDICAID, SELFPAY ==
[2025-09-13 01:08] VITALS: BP 149/103; PULSE 60; RESP 17; TEMP 36.7; O2SAT 98
[2025-09-13 01:10] VITALS: PULSE 80; O2SAT 98; BMI 22.7
--- NOTE | 2025-09-13 01:30 | XR_ITS ---
Examination: CT brain head without contrast. 2-D sagittal coronal reconstructions Date and time of exam: September 13, 2025, 0147 hours INDICATIONS: Onset headache today CTDI: vol (mGy): 46.60 DLP: (mGycm): 900 Technique: Multiple CT axial sections of the brain have been obtained, 5 mm slice thickness. Contrast has not been administered. 2-D sagittal, coronal reconstructions have been obtained Low dose protocols were performed. One or more of the following dose reduction techniques were used; automated exposure control, adjustment of the mA and/or KV according to patient size, use of iterative reconstruction technique. Findings: No significant ventricular enlargement. Intra-axial or extra-axial hemorrhage density is not seen. No mass effect or midline shift Basal cisterns are not remarkable. Fourth ventricle is midline. Cranial vault intact. Impression: Negative for acute hemorrhage, mass effect or midline shift
[2025-09-13 02:08] LABS: Basophils # (Auto) 0.1 Thou/mm3 (0.0-0.2); Basophils % (Auto) 1 % (0-2.5); Eosinophils # (Auto) 0.1 Thou/mm3 (0.0-0.5); Eosinophils % (Auto) 2 % (0-10); Hematocrit 40.6 % (41.0-53.0); Hemoglobin 13.1 g/dL (13.5-16.0); Immature Granulocytes Auto 0.01 Thou/mm3 (0.00-0.00); Lymphocytes # (Auto) 1.3 Thou/mm3 (1.0-4.8); Lymphocytes % (Auto) 26 % (10-50); Mean Corpuscular HGB Conc 32.3 g/dl (31.0-37.0); Mean Corpuscular Hemoglobin 30.1 pg (25.0-35.0); Mean Corpuscular Volume 93 fL (80-100); Monocytes # (Auto) 0.4 Thou/mm3 (0.0-0.8); Monocytes % (Auto) 8 % (0-12); Neutrophils # (Auto) 3.3 Thou/mm3 (1.8-7.7); Neutrophils % (Auto) 63 % (37-80); Nucleated Red Blood Cell # 0.00 Thou/mm3 (0.00-0.00); Nucleated Red Blood Cell % 0 /100 WBC (0); Platelet Count 354 Thou/mm3 (140-440); RDW Standard Deviation 48.0 fL (35.1-43.9); Red Blood Count 4.35 Miln/mm3 (4.50-5.90); White Blood Count 5.2 Thou/mm3 (3.8-10.6)
[2025-09-13 02:18] LABS: Alanine Aminotransferase 17 U/L (10-49); Albumin, Serum 5.0 gm/dL (3.5-5.0); Albumin/Globulin Ratio 1.6 (1.2-2.2); Alkaline Phosphatase 141 U/L (46-116); Anion Gap 14 (7-16); Aspartate Amino Transferase 29 U/L (0-34); BUN/Creatinine Ratio 8 Ratio (12-20); Bilirubin,Total 0.5 mg/dL (0.3-1.2); Blood Urea Nitrogen 8 mg/dL (9-23); Calcium 9.5 mg/dL (8.3-10.6); Calcium (Corrected) 9.5 mg/dL (8.5-10.1); Carbon Dioxide 19.9 mMol/L (20.0-31.0); Chloride 106 mMol/L (98-107); Creatinine (Component) 1.0 mg/dL (0.6-1.3); Estimated Creatinine Clearance 86.8 mL/min (>60); Globulin 3.1 gm/dL (2.3-3.5); Glucose 92 mg/dL (74-106); Lipase 64 U/L (12-53); Osmolality,Calculated 277 (275-295); Potassium 3.8 mMol/L (3.4-5.1); Sodium 140 mMol/L (136-145); Total Protein 8.1 gm/dL (5.7-8.2); eGFR > 60 See Note
--- NOTE | 2025-09-13 02:37 | PRELIM_ITS ---
CT scan of the head without intravenous contrast (axial sections with sagittal and coronal reformats). September 13, 2025 0147 hours Clinical History: Headache Comparison: Reference is made to prior preliminary CT head report dated November 23, 2021. Findings: There is no evidence of acute intracranial hemorrhage, mass effect or midline shift. The meeks white matter differentiation is maintained. The ventricles and CSF spaces are unremarkable. The calvarium is unremarkable. The mastoid air cells and the visualized paranasal sinuses are clear. There is a nasal septal defect. Impression: No evidence of acute intracranial hemorrhage, mass effect or midline shift. Other findings as described above. Suggest clinical correlation and follow up accordingly. Report Electronically Signed By: Darius Bautista 09/13/2025 2:36:34 AM [EST]
--- NOTE | 2025-09-13 05:25 | PD.EDHA ---
ED Headache RME/HPI General Chief Complaint: Headache Stated Complaint: HEADACHE Time Seen by Provider: 09/13/25 01:30 Arrival date/time: 09/13/25 01:06 This is a case of 45-year-old male with history of hypertension gastritis chronic pancreatitis anemia came in in the emergency room due to headache frontal in character today throbbing in character associated with dizziness nausea vomiting patient denies any injury or trauma denies any blurring in vision denies any numbness weakness tingling sensation patient also having upper abdominal pain but no diarrhea no constipation no blood in stool persistence of the symptoms this patient decided to sought consult here in the emergency room Related Data Home Medications ?Medication ?Instructions ?Recorded ?Confirmed quetiapine 25 mg tablet 25 mg PO PRN PRN Sleep 04/14/24 05/22/25 allopurinol 100 mg tablet 100 mg PO QDAY 06/27/24 05/22/25 ergocalciferol (vitamin D2) 1,250 1,250 mcg PO QWEEK 06/27/24 05/22/25 mcg (50,000 unit) capsule hydrocodone 10 mg-acetaminophen 1 tab PO BID PRN Pain 06/27/24 05/22/25 325 mg tablet omeprazole 20 mg capsule,delayed 20 mg PO QDAY 08/08/24 05/22/25 release Previous Rx's ?Medication ?Instructions ?Recorded amlodipine 5 mg tablet 5 mg PO QDAY #30 tabs 05/24/25 ketorolac 10 mg tablet 10 mg PO Q8H PRN pain #7 tabs 05/24/25 lisinopril 40 mg tablet 40 mg PO QDAY #30 tabs 05/24/25 famotidine 20 mg tablet (Pepcid) 20 mg PO BID 30 days #60 tabs 09/13/25 hydrocodone 5 mg-acetaminophen 325 1 tab PO Q6H PRN pain #12 tabs 09/13/25 mg tablet ondansetron 4 mg disintegrating 4 mg PO Q8H #20 tabs 09/13/25 tablet Allergies Allergy/AdvReac Type Severity Reaction Status Date / Time No Known Allergies Allergy Verified 08/31/25 08:43 Course Orders Category Date Time Status CT head/brain wo con Stat Exams 09/13/25 01:30 Taken CBC Stat Lab 09/13/25 01:38 Completed Comprehensive Metabolic Panel Stat Lab 09/13/25 01:38 Completed Lipase Stat Lab 09/13/25 01:38 Completed Urinalysis Stat Lab 09/13/25 01:30 Ordered Famotidine [Pepcid] Med 09/13/25 05:21 Discontinued 40 mg PO X1 ONE HYDROcodone*/APAP 5/325 [Mercedes 5/325] Med 09/13/25 05:08 Discontinued 1 tab PO X1 ONE Ondansetron Odt [Zofran Odt] Med 09/13/25 05:08 Discontinued 4 mg PO X1 ONE Vital Signs Vital signs: Vital Signs Temperature 98.0 F 09/13/25 01:08 Pulse Rate 60 09/13/25 01:08 Respiratory Rate 17 09/13/25 01:08 Blood Pressure 149/103 H 09/13/25 01:08 Pulse Oximetry (%) 98 09/13/25 01:08 Oxygen Delivery Method Room Air 09/13/25 01:08 Headache Medications / Prescriptions Medication administrations:: Medication Administration History Discontinued Medications Hydrocodone Bitart/Acetaminophen (Hydrocodone/Apap 5/325 Tablet) 1 tab PO X1 ONE Stop: 09/13/25 05:09 Famotidine (Famotidine 20 Mg Tablet) 40 mg PO X1 ONE Stop: 09/13/25 05:22 Ondansetron HCl (Ondansetron Odt 4 Mg Tabrap) 4 mg PO X1 ONE; Protocol Stop: 09/13/25 05:09 Discharge Plan Plan Patient Disposition: HOME (Self Care) Patient condition on transfer: Stable Prescriptions/Referrals Prescriptions/Med Rec: New hydrocodone-acetaminophen 5-325 mg tablet 1 tab PO Q6H MDD max 4 tabs per day PRN (Reason: pain) Qty: 12 0RF famotidine [Pepcid] 20 mg tablet 20 mg PO BID 30 Days Qty: 60 0RF ondansetron 4 mg tablet,disintegrating 4 mg PO Q8H Qty: 20 0RF No Action allopurinol 100 mg tablet 100 mg PO QDAY hydrocodone-acetaminophen 10-325 mg tablet 1 tab PO BID PRN (Reason: Pain) ergocalciferol (vitamin D2) 1,250 mcg (50,000 unit) capsule 1,250 mcg PO QWEEK Rx Instructions: every sunday lisinopril 40 mg tablet 40 mg PO QDAY Qty: 30 0RF amlodipine 5 mg tablet 5 mg PO QDAY Qty: 30 0RF ketorolac 10 mg tablet 10 mg PO Q8H MDD 3 PRN (Reason: pain) Qty: 7 0RF Rx Instructions: maximum total duration of 5 days from all oral, intranasal, or parenteral formulations quetiapine 25 mg tablet 25 mg PO PRN PRN (Reason: Sleep) omeprazole 20 mg Capsule,Delayed Release(Dr/Ec) 20 mg PO QDAY Referrals: Ramon Lainez [Primary Care Provider] - In 1 week Problem List Clinical Impression: Headache, Abdominal pain, Gastritis Patient/Caregiver Discharge Instructions Education Materials: Abdominal Pain, Self-Care for Headaches, ED Gastritis (Adult) Additional Instructions: Follow-up with your primary care physician in 2 days for reevaluation and to be referred to neurologist for your headache and semiconductor equipment technician for your gastritis for possible EGD recurrence persistent worsening symptoms or any emergent concern call 911 or go to the nearest emergency room take your medication as directed keep hydrated Pedialyte Gatorade for hydration avoid skipping of meals avoid fatty fried high cholesterol food avoid soda coffee alcohol avoid spicy Print Language: [place] Stand Alone Forms: Shona Award Info., Patient Portal Info Letter PA/SENIOR SUPPLIER QUALITY ENGINEER Supervising Physician PA/SENIOR SUPPLIER QUALITY ENGINEER Supervising Physician: Dr. Blood
[2025-09-13] MEDS: HYDROcodone/APAP 5/325 TABLET 1 TAB PO (05:43)
[2025-09-13] MEDS: FAMOTIDINE 20 MG TABLET 40 MG PO (05:43)
[2025-09-13] MEDS: ONDANSETRON ODT 4 MG TABRAP PO (05:43)
== END 2025-09-13 05:55 | disposition home or self-care (01) ==
PROVIDERS: Nurse Practitioner Family; Emergency Provider Emergency Medicine; PCP Physician Assistant
DX: K29.70 Gastritis, unspecified, without bleeding (principal); R51.9 Headache, unspecified
CPT/HCPCS: 36415; 70450; 80053; 81001; 83690; 85025; 99283; Q0162; A9270